=== PATIENT | female | born 1950 | race Caucasian/White ===

== ENCOUNTER → 2019-10-31 11:03 | Outpatient (CLI) | payer MEDICARE, BC, SELFPAY ==
--- NOTE | ~2019-10-31 | MR_ITS ---
EXAMINATION: MR lumbar spine wo con DATE: 10/31/2019 12:12 INDICATION: Right-sided low back pain. Sciatica. TECHNIQUE: Magnetic resonance imaging (MRI) of the lumbar spine was performed without intravenous con trast. Sequences included sagittal T2-weighted FSE, sagittal T2-weighted FS FSE, sagittal T1-weighted FSE, and axial T2-weighted FSE. COMPARISON: None FINDINGS: There is 9 degrees levocurvature of thoracolumbar spine. There is 3 mm retrolisthesis of L2 on L3 and L4 on L5. Vertebral body heights are normal. There is mildly decreased disc height from T1 2-L1 through L4-L5 and severely decreased disc height at L5-S1. The distal spinal cord signal intensi ty is normal. The conus medullaris is at L1. The following disc levels are specifically discussed: L1-L2: The disc is bulging. There is severe bilateral facet joint osteoarthritis. There is mild bilat eral neural foraminal stenosis. There is mild central canal stenosis. L2-L3: The disc is bulging. There is moderate bilateral facet joint osteoarthritis. There is mild keyla ateral neural foraminal stenosis. There is mild central canal stenosis. L3-L4: The disc is bulging. There is mild bilateral facet joint osteoarthritis. There is moderate keyla ateral neural foraminal stenosis. There is mild central canal stenosis. L4-L5: The disc is bulging with superimposed right central extrusion. There is severe bilateral facet joint osteoarthritis. There is moderate bilateral neural foraminal stenosis. There is mild central c anal stenosis. L5-S1: The disc is bulging and has an annular fissure. There is moderate bilateral facet joint osteoa rthritis. There is mild right and moderate left neural foraminal stenosis. There is mild central vj l stenosis. IMPRESSION: 1. Severe lumbar spondylosis. Reviewed, dictated and finalized at location A.
== END ==
PROVIDERS: PCP Internal Medicine; Visit Provider Internal Medicine
DX: M54.31 Sciatica, right side (principal); M47.896 Other spondylosis, lumbar region
CPT/HCPCS: 72148

== ENCOUNTER 2019-11-24 13:40 | Outpatient (CLI) | payer MEDICARE, BC, SELFPAY ==
--- NOTE | ~2019-11-24 | XR_ITS ---
EXAMINATION: XR chest 2V EXAM DATE: 11/24/2019 14:38 INDICATION: Preoperative. Hypertension. TECHNIQUE: Frontal and lateral projections of the chest obtained and reviewed. Comparison is made to prior examination from 10/15/2015. FINDINGS: The lungs are clear. There are no pleural effusions. The cardiomediastinal silhouette is within normal limits. There is no pneumothorax suspected. The bones and soft tissues are unremarkab le. IMPRESSION: No acute cardiopulmonary findings. Reviewed, dictated and finalized at location A.
[2019-11-24 14:32] LABS: Basophils Absolute Auto 0.1 K/mm3 (0.0-0.1); Basophils Percent Auto 0.8 % (0.2-1.2); Eosinophils Absolute Auto 0.3 K/mm3 (0-0.3); Eosinophils Percent Auto 4.1 % (0-4.4); Hematocrit 36.1 % (37.0-47.0); Hemoglobin 12.1 g/dL (12.0-15.0); Immature Granulocyte Absolute 0.02 K/mm3 (0.00-0.031); Immature Granulocyte Percent A 0.3 % (0-0.5); Lymphocytes Absolute Auto 2.44 K/mm3 (0.9-3.2); Lymphocytes Percent Auto 32.2 % (18.3-44.2); Mean Corpuscular HGB Conc 33.5 g/dl (32-36); Mean Corpuscular Volume 83.6 fl (80-100); Mean Platelet Volume 8.9 fl (7.4-10.4); Monocytes Absolute Auto 0.7 K/mm3 (0.1-0.6); Monocytes Percent Auto 8.7 % (2.6-8.5); Neutrophils Absolute Auto 4.1 K/mm3 (1.3-6.7); Neutrophils Percent Auto 53.9 % (45.5-73.1); Platelet Count Result 414 k/mm3 (150-375); Red Blood Count 4.32 M/mm3 (4.2-5.4); Red Cell Distribution Width 14.6 % (11.5-14.5); White Blood Count 7.6 K/mm3 (4.5-10.0)
--- NOTE | 2019-11-24 14:42 | ECG_ITS ---
Measurements Intervals [place] Rate: 69 P: 70 VT: 173 QRS: -3 QRSD: 101 T: 61 QT: 417 QTc: 447 Interpretive Statements SINUS RHYTHM POSSIBLE LEFT ATRIAL ENLARGEMENT CANNOT RULE OUT SEPTAL INFARCT, AGE INDETERMINATE ABNORMAL ECG Electronically Signed On 11-24-2019 14:58:50 CDT by Kishan Loo D.O.
[2019-11-24 14:43] LABS: INR 0.9; Prothrombin Time 12.1 Seconds (11.1-14.7)
[2019-11-24 14:45] LABS: Alanine Aminotransferase 19 U/L (4-35); Albumin Level 4.1 g/dL (3.5-5.1); Alkaline Phosphatase 66 U/L (38-126); Aspartate Amino Transferase 27 U/L (14-36); Bilirubin,Total 0.3 mg/dL (0.2-1.3); Blood Urea Nitrogen 17 mg/dL (7-17); Calcium 9.1 mg/dL (8.4-10.2); Carbon Dioxide 31 mmol/L (22-30); Chloride 96 mmol/L (98-107); Estimated Glomerular Filt Rate > 60; Glucose 171 mg/dL (65-105); Potassium 3.7 mmol/L (3.4-5.0); Sodium 131 mmol/L (137-145)
== END 2019-11-24 13:41 | disposition home or self-care (01) ==
DX: Z01.818 Encounter for other preprocedural examination (principal); I10 Essential (primary) hypertension; E11.9 Type 2 diabetes mellitus without complications; G62.9 Polyneuropathy, unspecified; R94.31 Abnormal electrocardiogram [ECG] [EKG]
CPT/HCPCS: 36415; 71046; 80053; 85025; 85610; 85730; 93005

== ENCOUNTER 2019-12-01 07:43 | Outpatient (CLI) | payer MEDICARE, BC, SELFPAY ==
--- NOTE | 2019-12-01 | ECHO_ITS ---
Patient Info Name: Valeria Murillo Age: 69 years : 1950 Gender: Female Ht: 66 in Wt: 240 lbs BSA: 2.30 m2 HR: 81 bpm BP: 155 / 79 mmHg Heart Rhythm: Sinus Rhythm Technical Quality: Fair Exam Date: 12/01/2019 8:16 AM Exam Location: [facility] Patient Status: Outpatient Admit Date: 12/01/2019 Staff Ordering Physician: MendozaTommie MD Photographic Reproduction Technician: Roberta Green RDCS Attending Provider: MendozaTommie MD Exam Type: CA echo doppler color flow Study Info Indications R94.31 - Abnormal electrocardiogram ECG EKG Complete two-dimensional, color flow and Doppler transthoracic echocardiogram is performed. Summary 1. Essentially unremarkable echocardiogram with normal cardiac contractility and no valvular disease. Left Ventricle Left ventricular chamber dimension is normal. Left ventricular systolic function is normal, estimated at 60-65%. Left ventricular septal wall motion is normal. The left ventricular diastolic function is normal. Right Ventricle Right ventricular chamber dimension is normal. Left Atria Left atrial chamber dimension is normal. Right Atria Right atrial chamber dimension is normal. Aortic Valve The aortic valve is normal. Pulmonic Valve The pulmonic valve is not well visualized. Mitral Valve The mitral valve has normal leaflets. Tricuspid Valve The tricuspid valve leaflets are normal. Pericardium/Pleural The pericardium appears normal. Aorta The aortic root size at the sinus of Valsalva is normal. Left Ventricular Outflow Tract Name Value Normal LVOT 2D LVOT Diameter 1.9 cm LVOT Doppler LVOT Peak Gradient 4 mmHg LVOT Mean Gradient 2 mmHg LVOT VTI 23 cm LVOT VTI/AV VTI Ratio 0.9 LVOT Stroke Volume 67 ml LVOT CO 4.9 l/min LVOT CI 2.1 l/min/m2 Pulmonic Valve Name Value Normal RVOT Doppler RVOT Peak Gradient 2 mmHg PV Doppler PV Peak Gradient 3 mmHg Mitral Valve Name Value Normal MV Doppler MV Decel Spencer 565 cm/s2 MV PHT 58 ms MV Area (PHT) 3.8 cm2 4.0-5.0 MV Diastolic Function MV E Peak Velocity 113 cm/s MV A Peak
== END 2019-12-01 07:44 | disposition home or self-care (01) ==
PROVIDERS: Visit Provider Internal Medicine
DX: R94.31 Abnormal electrocardiogram [ECG] [EKG] (principal)
CPT/HCPCS: 93306

== ENCOUNTER 2020-05-19 08:37 | Outpatient (CLI) | payer MEDICARE, BC, SELFPAY ==
--- NOTE | ~2020-05-19 | US_ITS ---
EXAMINATION: US arterial ankle brachial ind DATE: 05/19/2020 09:25 INDICATION: Peripheral vascular disease. Intermittent claudication. TECHNIQUE: Segmental pressures and plethysmographic and Doppler waveforms of the brachial and lower e xtremity arteries were obtained. COMPARISON: None. FINDINGS: Right and left brachial artery pressures of 163 mm Hg and 155 mm Hg, respectively, are concordant (no rmal difference <= 30 mmHg). The right ankle-brachial index (DAPHNE) is 1.13 (normal >= 0.9-1.0). The right great toe-brachial index (TBI) is 0.80 (normal >= 0.65). Arterial Doppler waveforms are biphasic with brisk systolic upstrokes at both the right posterior tibial and dorsalis pedis arteries. The left DAPHNE is 1.20. The left TBI is 0.92. Arterial Doppler waveforms are biphasic with brisk systol ic upstrokes at both the left posterior tibial and dorsalis pedis arteries. IMPRESSION: 1. No significant arterial occlusive disease with normal bilateral ABIs and TBIs. Reviewed, dictated and finalized at location B. IMPRESSION: 1. No significant arterial occlusive disease with normal bilateral ABIs and TBI s.
== END 2020-05-19 08:38 | disposition home or self-care (01) ==
PROVIDERS: Visit Provider Internal Medicine
DX: M79.604 Pain in right leg (principal); I73.9 Peripheral vascular disease, unspecified
CPT/HCPCS: 93922

== ENCOUNTER 2021-11-02 08:36 | Outpatient (CLI) | payer MEDICARE, SELFPAY ==
[2021-11-02 12:18] LABS: SARS-CoV-2 RNA PCR Negative (Negative)
== END 2021-11-02 08:37 | disposition home or self-care (01) ==
LOC: CHSLAB 08:38
PROVIDERS: PCP Internal Medicine; Visit Provider Internal Medicine
DX: Z20.822 Contact with and (suspected) exposure to COVID-19 (principal)
CPT/HCPCS: C9803; U0003; U0005

== ENCOUNTER 2023-05-08 12:54 | Outpatient (CLI) | payer MEDICARE, BC, SELFPAY ==
--- NOTE | ~2023-05-08 | MMUS_ITS ---
EXAMINATION: MM diagnostic tegan RT w radha, US breast RT limited HISTORY: Follow-up right breast asymmetry TECHNIQUE: Additional 3-D tomosynthesis images of the right breast were performed and synthetic 2-D i mages were generated. CAD analysis was submitted and interpreted. High resolution Limited right breas t ultrasound was performed. COMPARISON: 04/04/2023 BREAST PARENCHYMAL COMPOSITION: Breast composed of scattered areas of fibroglandular density FINDINGS: MAMMOGRAPHIC FINDINGS: The focal asymmetry medially in the right breast is less dense with spot compression views, most like ly superimposed fibroglandular content. ULTRASOUND: Limited right breast ultrasound: Normal heterogeneous echotexture without focal solid or cystic mass. IMPRESSION: 1. Right breast asymmetry is less dense with spot compression views. No sonographic correlate. 2. Recommend 6 month follow-up diagnostic right mammogram BI-RADS category 3, probably benign findings. Reviewed, dictated and finalized at location A. IMPRESSION: 1. Right breast asymmetry is less dense with spot compression views. No sonogra phic correlate. 2. Recommend 6 month follow-up diagnostic right mammogram BI-RADS category 3, probably benign findings.
== END 2023-05-08 12:55 | disposition home or self-care (01) ==
PROVIDERS: PCP Internal Medicine; Visit Provider Internal Medicine
DX: R92.8 Other abnormal and inconclusive findings on diagnostic imaging of breast (principal)
CPT/HCPCS: 76642; 77061; 77065; G0279

== ENCOUNTER 2023-08-02 12:53 | Emergency (ER) | payer MEDICARE, BC, SELFPAY ==
[2023-08-02 13:12] VITALS: BP 144/76; PULSE 90; RESP 16; TEMP 36.4; O2SAT 98
[2023-08-02 15:15] VITALS: BP 178/91; PULSE 110; RESP 18; O2SAT 98
[2023-08-02 16:45] VITALS: BP 154/94; PULSE 89; RESP 18; O2SAT 96
--- NOTE | 2023-08-02 17:04 | ED.EPISTAXIS ---
HPI - Epistaxis General Chief complaint: Epistaxis Stated complaint: Nosebleed Time Seen by Provider: 08/02/23 16:01 History of Present Illness HPI Narrative: Patient is a 73-year-old female who presents ER with epistaxis. Was itching her nose this morning when she developed bleeding. She has been trying the Holter in knows to stop the bleeding but has not worked. She is on no blood thinning medication. Has history of nosebleeds in the past. No sinus congestion or sore throat or cough. No fevers or chills or sweats. No additional concerns. Related Data Allergies Allergy/AdvReac Type Severity Reaction Status Date / Time ciprofloxacin Allergy Unknown NAUSEA Verified 08/02/23 12:54 Review of Systems Constitutional: Constitutional: Reports no additional constitutional complaints ENT: Reports epistaxis, Denies nasal congestion and Denies sore throat Cardiovascular: Cardiovascular: Reports no additional cardiovascular complaints PMFSH Past Medical History Medical History (Updated 08/02/23 @ 18:33 by Fernie Coronado MD) Diabetes Hypertension Family History Family History (Updated 02/18/16 @ 23:19 by DOCTOR UNKNOWN) Mother Hypertension Family history of Alzheimer's disease Father Cerebrovascular accident Family history of diabetes mellitus in first degree relative Family history of pancreatic cancer Social History Social History Smoking status: Former smoker Smoking end date: 07/23/94 Alcohol intake: current Exam Narrative: GENERAL: Well-appearing, well-nourished, and in no acute distress. HEAD: Normocephalic, atraumatic. ENT: Mucous membranes moist. Stigmata of bleeding nasal septum left side. NECK: Supple. CHEST: Clear to auscultation. No respiratory distress. HEART: Regular rate and rhythm. Normal peripheral pulses. SKIN: Warm, dry, petechial rash dorsum of the left hand. NEURO: Alert and oriented x3. PSYCH: Normal mood and affect. Course Course Emergency Course: Patient resting comfortably. Bleeding stopped on its own prior to my evaluation. Discussed using cautery and also discussed risk of failure that would then require anterior nasal packing. Patient declines and would like to do conservative treatments and try to follow-up with an ENT. She has been provided the nasal clamp that she used to stop the bleeding here. Discussed patient is high risk for rebleeding discussed ways to prevent bleeding. Patient will discontinue her CPAP short term. She will not stick anything in her nose. We discussed use of Afrin and [place] nasal spray. Patient notes rash before discharge that is petechial in nature. Lab work normal. Discharge. Vital Signs Vital signs: Vital Signs Temperature 97.6 F 08/02/23 13:12 Pulse Rate 90 08/02/23 13:12 Respiratory Rate 16 08/02/23 13:12 Blood Pressure 144/76 H 08/02/23 13:12 Pulse Oximetry 98 08/02/23 13:12 Oxygen Delivery Room Air 08/02/23 13:12 Temperature 98.3 F 08/02/23 17:51 Pulse Rate 88 08/02/23 17:51 Respiratory Rate 20 08/02/23 17:51 Blood Pressure 159/94 H 08/02/23 17:51 Pulse Oximetry 98 08/02/23 17:51 Oxygen Delivery Room Air 08/02/23 13:12 MDM - Epistaxis Lab Data 08/02/23 17:44 08/02/23 17:44 Labs: Lab Results 08/02/23 Range/Units 17:44 WBC 10.0 (4.5-10.0) K/mm3 RBC 4.15 L (4.2-5.4) M/mm3 Hgb 11.9 L (12.0-15.0) g/dL Hct 36.5 L (37.0-47.0) % MCV 88.0 (80-100) fl MCH 28.7 (26-34) pg MCHC 32.6 (32-36) g/dl RDW 14.7 H (11.5-14.5) % Plt Count 390 H (150-375) k/mm3 MPV 9.3 (7.4-10.4) fl Immature Gran % (Auto) 0.2 (0-0.5) % Neut % (Auto) 52.5 (45.5-73.1) % Lymph % (Auto) 36.7 (18.3-44.2) % [place] % (Auto) 6.6 (2.6-8.5) % Eos % (Auto) 3.1 (0-4.4) % Baso % (Auto) 0.9 (0.2-1.2) % Lymph # (Auto) 3.66 H (0.9-3.2) K/mm3 [place] # (Auto) 0.7 H (0.1-0.6) K/mm3 Eos # (Auto) 0.3 (0-0.3) K/mm
[2023-08-02 17:51] VITALS: BP 159/94; PULSE 88; RESP 20; TEMP 36.8; O2SAT 98
[2023-08-02 17:53] LABS: Basophils Absolute Auto 0.1 K/mm3 (0.0-0.1); Basophils Percent Auto 0.9 % (0.2-1.2); Eosinophils Absolute Auto 0.3 K/mm3 (0-0.3); Eosinophils Percent Auto 3.1 % (0-4.4); Hematocrit 36.5 % (37.0-47.0); Hemoglobin 11.9 g/dL (12.0-15.0); Immature Granulocyte Absolute 0.02 K/mm3 (0.00-0.031); Immature Granulocyte Percent A 0.2 % (0-0.5); Lymphocytes Absolute Auto 3.66 K/mm3 (0.9-3.2); Lymphocytes Percent Auto 36.7 % (18.3-44.2); Mean Corpuscular HGB Conc 32.6 g/dl (32-36); Mean Corpuscular Hemoglobin 28.7 pg (26-34); Mean Platelet Volume 9.3 fl (7.4-10.4); Monocytes Absolute Auto 0.7 K/mm3 (0.1-0.6); Monocytes Percent Auto 6.6 % (2.6-8.5); Neutrophils Absolute Auto 5.2 K/mm3 (1.3-6.7); Neutrophils Percent Auto 52.5 % (45.5-73.1); Platelet Count Result 390 k/mm3 (150-375); Red Blood Count 4.15 M/mm3 (4.2-5.4); Red Cell Distribution Width 14.7 % (11.5-14.5)
--- NOTE | 2023-08-02 17:54 | PC.NURSE ---
[id number]- RN arrived to pt room to discharge pt. Pt anxious crying states she has blood coming up in my hand & wrist points to left hand & wrist. RN noted red petechial rash on left hand & left wrist. Pt denies any ain or itching associated with rash Dr. Coronado notified.
[2023-08-02 18:05] LABS: Alanine Aminotransferase 18 U/L (6-35); Albumin Level 4.2 g/dL (3.5-5.1); Alkaline Phosphatase 65 U/L (38-126); Anion Gap 9 mmol/L (8-16); Aspartate Amino Transferase 32 U/L (14-36); Bilirubin,Total 0.5 mg/dL (0.2-1.3); Blood Urea Nitrogen 19 mg/dL (7-17); Calcium 9.2 mg/dL (8.4-10.2); Carbon Dioxide 27 mmol/L (22-30); Chloride 99 mmol/L (98-107); Estimated CRCL calculation 83 ml/min; Estimated Glomerular Filt Rate > 60; Glucose 100 mg/dL (65-110); Potassium 4.1 mmol/L (3.4-5.0); Sodium 135 mmol/L (137-145)
[2023-08-02 18:08] LABS: INR 0.9; Prothrombin Time 12.9 Seconds (11.1-14.7)
[2023-08-02 18:09] LABS: Partial Thromboplastin Time 27.3 SECONDS (22.3-36.8)
--- NOTE | 2023-08-02 19:01 | PC.NURSE ---
No change in rash at this time
== END 2023-08-02 19:02 | disposition home or self-care (01) ==
PROVIDERS: Emergency Provider Emergency Medicine; PCP Internal Medicine
DX: R04.0 Epistaxis (principal); E11.9 Type 2 diabetes mellitus without complications; I10 Essential (primary) hypertension; Z87.891 Personal history of nicotine dependence
CPT/HCPCS: 36415; 80053; 85025; 85610; 85730; 99283

== ENCOUNTER 2023-11-08 10:14 | Outpatient (CLI) | payer MEDICARE, BC, SELFPAY ==
--- NOTE | ~2023-11-08 | MM_ITS ---
EXAMINATION: MM diagnostic tegan RT w radha HISTORY: Follow-up right breast asymmetry TECHNIQUE: Additional 3-D tomosynthesis images of the right breast were performed and synthetic 2-D i mages were generated. CAD analysis was submitted and interpreted. COMPARISON: Comparison to multiple prior studies sequentially, with oldest reviewed study dated 10/2018. BREAST PARENCHYMAL COMPOSITION: Not dense: There are scattered areas of fibroglandular density. FINDINGS: The right breast is stable. No new masses, calcifications or architectural distortion in th e right breast to suggest malignancy. IMPRESSION: 1. No evidence for malignancy in the right breast. 2. Routine yearly screening mammogram and regular clinical breast examination are recommended. BI-RADS Category 1: Negative Reviewed, dictated and finalized at location B. IMPRESSION: 1. No evidence for malignancy in the right breast. 2. Routine yearly screening mammogram and regular clinical breast examination a re recommended. BI-RADS Category 1: Negative
== END 2023-11-08 10:15 | disposition home or self-care (01) ==
PROVIDERS: PCP Internal Medicine
DX: N63.10 Unspecified lump in the right breast, unspecified quadrant (principal); R92.8 Other abnormal and inconclusive findings on diagnostic imaging of breast
CPT/HCPCS: 77061; 77065; G0279

== ENCOUNTER 2024-02-05 13:06 | Outpatient (CLI) | payer MEDICARE, BC, SELFPAY ==
--- NOTE | ~2024-02-05 | XR_ITS ---
XR hip BI wo pelvis Ordering provider: Tommie Donaldson, History: . BILATERAL HIP PAIN, LEFT HIP LATERAL PAIN, NO INJURY . Comparison: None. FINDINGS: BONES: No acute fracture or dislocation. HIP JOINT SPACES: Mild to moderate bilateral hip osteoarthritic changes. SACROILIAC JOINT SPACES/LUMBAR SPINE: The sacroiliac joint spaces are normal. Mild degenerative martell es of the visualized lower lumbar spine. PUBIC SYMPHYSIS: Normal. SOFT TISSUES: Normal. IMPRESSION: No acute osseous abnormality of the bilateral hips and pelvis. Reviewed, dictated and finalized at location A.
== END 2024-02-05 13:07 | disposition home or self-care (01) ==
PROVIDERS: PCP Internal Medicine; Visit Provider Internal Medicine
DX: M25.551 Pain in right hip (principal); M25.552 Pain in left hip
CPT/HCPCS: 73521

== ENCOUNTER 2024-06-10 12:13 | Outpatient (CLI) | payer MEDICARE, BC, SELFPAY ==
--- NOTE | ~2024-06-10 | XR_ITS ---
Clinical Indication: Cough PA and lateral views of the chest: Comparison: 11/24/2019 Findings: The lungs are clear, without evidence of focal consolidation or pleural effusion. Cardiome diastinal silhouette is within normal limits. Bones and soft tissues are unremarkable. Impression: Normal chest. Reviewed, dictated and finalized at [facility]. SCHOOL MUSIC DIRECTOR Impression: Normal chest.
== END 2024-06-10 12:14 | disposition home or self-care (01) ==
LOC: GOSHIMG 12:16
PROVIDERS: PCP Internal Medicine; Visit Provider Internal Medicine
DX: R05.9 Cough, unspecified (principal); Z87.891 Personal history of nicotine dependence
CPT/HCPCS: 71046

== ENCOUNTER 2024-11-20 09:57 | Outpatient (CLI) | payer MEDICARE, BC, SELFPAY ==
--- NOTE | ~2024-11-20 | MM_ITS ---
EXAMINATION: MM screening tegan BI w radha HISTORY: Screening TECHNIQUE: Craniocaudal and mediolateral oblique 3-D tomosynthesis images were obtained and synthetic 2-D images were generated. CAD analysis was submitted and interpreted. COMPARISON: Comparison to multiple prior studies sequentially, with oldest reviewed study dated 01/2020. BREAST PARENCHYMAL COMPOSITION: Not dense: There are scattered areas of fibroglandular density. FINDINGS: There is no evidence of suspicious mass, calcification, or architectural distortion to sugg est malignancy in either breast. There has been no suspicious interval change. IMPRESSION: 1. No mammographic evidence of malignancy. 2. Recommend routine screening mammography in one year. BI-RADS Category 1: Negative Reviewed, dictated and finalized at location A.
--- OUTSIDE RECORDS SUMMARY | 2024-11-20 10:43 | XMS_ITS | Data Portability ---
Author Organization [facility] [address] [place] [place] [address] Care Team Providers Care Asset Management Analyst Name Role Phone LIAT DONALDSON Primary Care Provider SULEMA [facility] Oil Heater Installer ZACHAYR TRIPLETT Chief Ultrasound Technologist BEVERLEY RAMIREZ Neurologist LINA MÉNDEZ Jboss Architect Assessment Encounter Date Assessment Date Assessment LastModified by Organization Details LastModified Time 01/31/2024 01/31/2024 agree with use of diabetic shoes. Chronic medical problems have been discussed most recent blood work has been reviewed management of problems and assessment and plan have been discussed follow up with me in 3-4 months [email or web address] Not available 02/23/2024 23:55:03 02/07/2024 02/07/2024 she will keep her regular follow-up right now things not have bad and she is seeing Rheumatology in the next week [email or web address] Not available 02/23/2024 11:10:56 06/05/2024 06/05/2024 healthy lifestyle care instructions diastolic of 82 she does hurt today I do not think we need to do anything but further watch that. Other medicines we will continue follow up 4 months [email or web address] Not available 07/17/2024 22:37:28 06/16/2024 06/16/2024 screenings and work sheet checklist discussed all questions were answered. Screenings and immunizations ordered where patient agreeable and appropriate. We will see me at her regularly scheduled appointment [email or web address] Not available 06/19/2024 15:12:44 10/02/2024 10/02/2024 continue current therapy blood work has been ordered healthy lifestyle care instructions follow up in 3-4 months [email or web address] Not available 10/04/2024 22:10:23 Plan of Treatment Reminders Order Date Submit Date Provider Last Modified By Organization Details Last Modified Time Details Appointments ANY 15 2024 11:00A M Liat Donaldson MD Not available Not available Not available Lab CMP, serum or plasma 2024 025 [facility], [address], [address], [place], [address], 10/04/2024 13:23:28 CBC w/ auto diff 2024 025 [facility], [address] Ang[address], [address], [place], [address], 10/08/2024 14:10:03 lipid panel, serum 2024 025 [facility], [address] Ang[address], [address], [place], [address], 10/08/2024 14:10:03 TSH + free T4, serum 2024 025 [facility], [address] Angeli Amin, [address], [place], [address], 10/08/2024 14:10:03 T3, free, serum or plasma 2024 025 [facility], [address], [address], [place], [address], 10/08/2024 14:10:03 HbA1c (hemog lobin A1c), blood 2024 025 [facility], [address] Ang[address], [address], [place], [address], 10/08/2024 14:10:03 HbA1c (hemog lobin A1c), blood 2023 024 In-Office Order, Internal Use Only DO Not Attach Compendium DO Not Attach Compendium, Do Not Delete/merge, [id number] 01/31/2024 14:57:13 Referral None record ed. Procedures None record ed. Surgeries None record ed. Imaging bone densit y 2023 024 [facility], [facility] [place]Note 2], [address], [address], 11/20/2024 04:22:46 Medication Orders Ozempi c 0.25 mg or 0.5 mg (2 mg/3 mL) subcut aneous pen inject or 2024 025 [facility], [facility], [place], [address], 10/28/2024 17:46:46 Patient TargetsNo targets recorded. Patient Instructions Encounter Date Encounter Id Patient Instructions Last Modified By Organization Details Last Modified Time 06/05/2024 [id number] A healthy lifestyle: care instructions [email or web address] Not available 07/17/2024 22:37:53 06/16/2024 [id number] preventing falls : care instructions [email or web address] Not available 06/16/2024 14:15:22 [facility] Preventive Checklist [email or web address] Not available 06/16/2024 14:15:22 10/02/2024 [id number] A healthy lifestyle: care instructions Not available 10/02/2024 13:27:16 Reason for Referral None Reported. Results Created Date Observation Date Name Description Value Unit Range Abnormal Flag Note LastModifiedBy Organization Detail LastModifiedTime 01/31/2001/31/2024 HbA1c (hemo globi n A1c), blood HbA1c 4.9 Not Available In-Office Order Internal Use Only DO Not Attach Compendium DO Not Attach Compendium, Do Not Delete/merge, [id number] 01/31/2024 14:09:58 06/30/20 24 06/30/2024 Hemog lobin A1c/H emogl obin. total in Blood hemoglobin A1C, POC 4.9 % low: 4%high : 5.6% Hemog lobin A1C, POC 4.9 4.0 - 5.6 % Not Available Not Available 10/02/2024 03:23:02 06/30/20 24 06/30/2024 Hemog lobin A1c/H emogl obin. total in Blood interpretati on and review of laboratory results Normal Not Available Not Available 09/20 03:23:02 10/14/19 25 10/13/2024 Hemog lobin A1c/H emogl obin. total in Blood hemoglobin A1C, POC 5.1 % low: 4%high : 5.6% Hemog lobin A1C, POC 5.1 4.0 - 5.6 % Not Available Not Available 10/21/2024 10:06:36 10/14/19 25 10/13/2024 Hemog lobin A1c/H emogl obin. total in Blood interpretati on and review of laboratory results Normal Not Available Not Available 07/2024 10:06:36 02/05/20 24 02/05/2024 XR, hip, bilat eral No observ ation record ed. [address] [address], [place], [address], 02/08/2024 15:42:14 02/05/20 24 02/05/2024 XR, hip, bilat eral No observ ation record ed. [address], [place], [address], 02/08/2024 15:42:15 06/10/20 24 06/10/2024 XR, chest , 2 view No observ ation record ed. [address], [place], [address], 06/25/2024 11:04:15 06/10/20 24 06/10/2024 XR, chest , 2 view No observ ation record ed. [facility] [address] [place] [address] [address], [place], [address], 06/16/2024 12:31:33 Result Notes None recorded. Problems Name Problem SNOMED Code Status Onset Date Resolution Date Notes Provider Name and Address Organization Details Recorded Time Type 2 diabetes mellitus 62053532 Active 2023 [facility] [place], [place] - [facility] 4 13:41:38 Obstructive sleep apnea syndrome 02837720 Active 2023 Mike Cail [place], [place] [facility] 4 13:41:56 Dyslipidemia 065172321 Active 2023 Mike Cal[place] [facility] 13:44:31 Obesity 167676463 Active 2023 Mike Cal[place] [facility] 13:45:12 Hypertensive disorder 71302087 Active 2023 [place] [facility] 13:45:20 Ankylosing spondylitis 5087258 Active 2023 [place] [facility] 13:45:29 Hyponatremia 17743276 Active 2023 [place] [facility] 13:45:36 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 Procedures Surgical History Date Name Laterality Status Provider Name and Address Organization Details Recorded Time Back Surgery completed [facility] THOMAS 10/03/2023 12:32:21 preparation of bowel for procedure completed [facility] 10/03/2023 12:34:32 Tonsillectomy completed [facility] 10/03/2023 12:34:42 Total hysterectomy completed [facility] 10/03/2023 12:34:52 thumb surgery completed Mike Cali MA [facility] 10/03/2023 13:46:34 Imaging Results Imaging Date Name Status [facility] Details LastModified Time 02/05/2024 XR, hip, bilateral completed [facility] [address], [place], [address], 02/08/2024 15:42:14 02/05/2024 XR, hip, bilateral completed [facility] [address], [place], [address], 02/08/2024 15:42:15 06/10/2024 XR[facility], [facility] [address] [facility], [place], [address], 06/25/2024 11:04:15 06/10/2024 XR, chest, 2 [facility] [address] [facility] [place]Note 2] [address], [place], [address], 06/16/2024 12:31:33 Procedure Notes None recorded. Medical Equipment None Reported. Allergies Allergen ID Allergen Name Allergen Category Reaction Reaction Severity Criticality Documentation Date Start Date Code Code System Note Provider Name and Address Organization Details Recorded Time 807136 Cipro medicatio n nausea moderate Not available 10/03/202361162 3 [facility] [place] - [facility] 12:26:20 677888 cefdinir medicatio n Not available Not available Not available 10/02/20242007 32867 RxNorm unrec ogniz ed react ion (text : Unkno wn, code: [id number]) (from [facility]) [place] [facility] 12:08:50 617275 ciproflox acin medicatio n nausea Not available [facility] 10/02/20242012 2551 RxNorm [facility] [place] [facility] 5 12:08:53 Medications Name Sig Start Date Stop Date Status Note LastModified by Organization Details LastModified Time celecoxib 200 mg capsule TAKE 1 CAPSULE TWICE DAILY active Not Available Not Available No t Available azithromyci n 250 mg tablet TAKE 2 TABLETS (500 MG) BY ORAL ROUTE ONCE DAILY FOR 1 DAY THEN 1 TABLET (250 MG) BY ORAL ROUTE ONCE DAILY FOR 4 DAYS 06/05 completed Not Available Not Available Not Available sulfasalazi ne 500 mg tablet,berenice yed release active Not Available Not Available Not Available metformin 850 mg tablet TAKE 1 TABLET TWICE DAILY WITH MEALS DIRECTED active Not Available Not Available No t Available tramadol 50 mg tablet TAKE 1 TO 2 TABLETS 3 TIMES A DAY WITH OVER-THE- COUNTER TYLENOL FOR PAIN CONTROL (VARY TRAMADOL DOSE BASED ON SEVERITY OF PAIN) active Not Available Not Available No t Available Humalog U-100 Insulin 100 unit/mL subcutaneou s solution USE VIA INSULIN PUMP UP TO 70 UNITS DAILY active Not Available Not Available No t Available Synthroid 25 mcg tablet TAKE 1 TABLET DAILY active Not Available Not Available No t Available gabapentin 300 mg capsule TAKE 1 CAPSULE EVERY MORNING, 1 CAPSULE WITH LUNCH AND 2 CAPSULES NIGHTLY active Not Available Not Available No t Available mupirocin 2 % topical ointment active Not Available Not Available Not Available Novolog U-100 Insulin aspart 100 unit/mL subcutaneou s solution active Not Available Not Available N ot Available losartan 50 mg-hydrochl orothiazide 12.5 mg tablet TAKE 1 TABLET DAILY active Not Available Not Available No t Available doxycycline hyclate 100 mg tablet Take 1 tablet twice a day by oral route for 7 days. 06/05 completed Not Available Not Available Not Available ciclopirox 0.77 % topical cream APPLY TOPICALLY TO AFFECTED AREA OF FOOT TWICE DAILY active Not Available Not Available No t Available rosuvastati n 10 mg tablet TAKE 1 TABLET DAILY active Not Available Not Available No t Available duloxetine 60 mg capsule,del ayed release TAKE 1 CAPSULE DAILY active Not Available Not Available No t Available solifenacin 5 mg tablet TAKE 1 TABLET DAILY active Not Available Not Available No t Available Wegovy 0.25 mg/0.5 mL subcutaneou s pen injector Inject 0.25 mg every week by subcutane ous route. 10/02 completed Not Available Not Available Not Available Omnipod 5 G6 Pods (Gen 5) subcutaneou s cartridge 06/16 completed Not Available Not Available Not Available Ozempic 0.25 mg or 0.5 mg (2 mg/3 mL) subcutaneou s pen injector INJECT 0.25MG SUBCUTANE OUSLY WEEKLY FOR 4WEEKS, THEN GO TO 0.5MG WEEKLY active Not Available Not Available No t Available Omnipod 5 G6-G7 Pods (Gen 5) subcutaneou s cartridge CHANGE POD EVERY 3 DAYS active Not Available Not Available No t Available Vitals Date Recorded Body height Heart rate Oxygen saturation Oxygen saturation in Arterial blood by Pulse oximetry Body mass index (BMI) Body weight Systolic blood pressure Diastolic blood pressure Provider Name and Address Organization Details Last Updated DateTime 4 165.1 cm 94 /min 96 % 96 % 35.6 kg/m2 52315.2 g 130 mm[Hg] 70 mm[Hg] Deedee Boss MA [facility] 4 14:18:49 Date Recorded Body height Body mass index (BMI) Body weight Heart rate Oxygen saturation Oxygen saturation in Arterial blood by Pulse oximetry Systolic blood pressure Diastolic blood pressure Provider Name and Address Organization Details Last Updated DateTime 4 165.1 cm 36.3 kg/m2 98255.5 7 g 82 /min 97 % 97 % 140 mm[Hg] 66 mm[Hg] Holly Sanders MA [facility] 4 16:35:35 Date Recorded Body height Body mass index (BMI) Body weight Heart rate Oxygen saturation Oxygen saturation in Arterial blood by Pulse oximetry Systolic blood pressure Diastolic blood pressure Provider Name and Address Organization Details Last Updated DateTime 4 165.1 cm 34.1 kg/m2 61989.4 4 g 72 /min 98 % 98 % 132 mm[Hg] 82 mm[Hg] Stephanie Vergara MA [facility] 4 14:24:08 Date Recorded Body height Body mass index (BMI) Body weight Heart rate Oxygen saturation Oxygen saturation in Arterial blood by Pulse oximetry Systolic blood pressure Diastolic blood pressure Provider Name and Address Organization Details Last Updated DateTime 4 165.1 cm 34.2 kg/m2 94485.2 3 g 98 /min 97 % 97 % 116 mm[Hg] 60 mm[Hg] Nely Rubio MA [facility] 4 11:58:12 Date Recorded Pain severity - 0-10 verbal numeric rating [Score] - Reported Provider Name and Address Organization Details Last Updated DateTime 06/16/2024 2 Izzy Boswell [facility] 06/16/2024 12:02:50 Date Recorded Body height Body mass index (BMI) Body weight Heart rate Oxygen saturation Oxygen saturation in Arterial blood by Pulse oximetry Systolic blood pressure Diastolic blood pressure Provider Name and Address Organization Details Last Updated DateTime 165.1 cm 33.3 kg/m2 77637.4 7 g 82 /min 96 % 96 % 110 mm[Hg] 64 mm[Hg] Nely RubioHOME [facility] 12:08:33 Social History Question Answer Notes LastModified by Organizat ion Details LastModified Time Tobacco Smoking Status Former Smoker quit around 1994 Izzy Andreia wheat, [facility] 06/16/2024 12:05:48 Do You Have An Advance Directive? Yes Information not available 10/03/2023 What Is Your Level Of Alcohol Consumption? None Information not available 06/16/2024 Are You Blind Or Do You Have Difficulty Seeing? No Information not available 06/16/2024 What Is Your Level Of Caffeine Consumption? Heavy Coffee Information not available 10/03/2023 In The 14 Days Before Symptom Onset, Have You Had Close Contact With A Laboratory-confi rmed COVID-19 While That Case Was Ill? No Information not available 10/02/2024 In The 14 Days Before Symptom Onset, Have You Had Close Contact With A Person Who Is Under Investigation For COVID-19 While That Person Was Ill? No Information not available 10/02/2024 Have You Been To An Area Known To Be High Risk For COVID-19? No Information not available 10/02/2024 Are You Currently Employed? No Information not available 10/03/2023 Are You Deaf Or Do You Have Serious Difficulty Hearing? Yes Has Hearing Aids Information not available 06/16/2024 What Type Of Diet Are You Following? REGULAR Information not available 10/03/2023 Are There Any Guns Present In Your Home? Yes Information not available 06/16/2024 In The Past 7 Days, How Many Days Did You Exercise? 0 Information not available 06/16/2024 In The Past 7 Days, How Much Pain Have You [place]? Some Information not available 06/16/2024 In General, Would You Say You Health Is: Fair Information not available 06/16/2024 How Would You Describe The Condition Of Your Mouth And Teeth- Including False Teeth Or Dentures? Fair Information not available 06/16/2024 Each Night, How Many Hours Of Sleep Do You Get? 7 Information not available 06/16/2024 Has Anyone Ever Told You That You Snore? No CPAP Information not available 06/16/2024 In The Past 7 Days, How Often Have You [place] Sleepy In The Daytime? Always Naps Daily Due To Fatigue Information not available 06/16/2024 # Alcohol Drinks Per Week 0 Information not available 06/16/2024 What Was The Date Of Your Most Recent Tobacco Screening? 10/02/2024 Information not available 10/02/2024 What Is Your Current Pack Years? 20-29packy ears Information not available 10/03/2023 What Is Your Relationship Status? Information not available 10/03/2023 Do You Use Your Seat Belt Or Car Seat Routinely? Yes Information not available 10/03/2023 Do You Have Smoke And Carbon Monoxide Detectors In Your Home? Yes Smoke Detectors Information not available 10/03/2023 Do You Feel Stressed (tense, Restless, Nervous, Or Anxious, Or Unable To Sleep At Night)? [id number] Information not available 06/16/2024 Do You Use Any Illicit Or Recreational Drugs? Yes CBD Occasionally Information not available 06/16/2024 Do You Use Sunscreen Routinely? Yes Information not available 10/03/2023 Has Tobacco Cessation Counseling Been Provided? No Information not available 06/16/2024 On What Date Was Tobacco Cessation Counseling Provided? 10/02/2024 Information not available 10/02/2024 How Many Years Have You Smoked Tobacco? 20 Information not available 10/03/2023 Do You Or Have You Ever Used Any Other Forms Of Tobacco Or Nicotine? No Information not available 10/03/2023 Sex: Unknown Functional Status Question Answer Note LastModified by Organization D etails LastModified Time Are you able to care for yourself? Yes Information n ot available 06/16/2024 What is your exercise level? None Information not available 06/16/2024 Mental Status None recorded. Family History Relationship Description Onset Age of this Age Resolved Age Notes LastModified by Organization Details LastModified Time Father Heart disease 72 [email or web address] Not available 09/20 12:28:28 Father Malignant tumor of pancreas 72 [email or web address] Not available 09/20 12:28:22 Father Cerebrovascu lar accident 72 [email or web address] Not available 0 10/03/2023 12:28:38 Father Harmful pattern of use of alcohol 72 [email or web address] Not available 09/20 12:28:45 Mother Alzheimer's disease 93 [email or web address] Not available 09/20 12:29:19 Mother Hypertensive disorder 93 [email or web address] Not available 09/20 12:29:30 Mother Hypercholest erolemia 93 [email or web address] Not available 09/20 12:29:46 Medical History Condition Response Coronary Artery Disease N Other Y Atrial Fibrillation N High Blood Pressure Y Kidney or Bladder Problems N Thyroid Problems N GI Problems N Depression Y COPD N Blood Clots N Have you had a mammogram in the last yea r? Y Skin Problems N Anemia N Heart Attack ([place]) N Anxiety Disorder N Diabetes Y Muscle, Joint, or Bone Problems Y Seizures/Epilepsy N Have you had a colonoscopy in the last 1 0 years? Y Acid Reflux (GERD) N Cancer N Stroke N Asthma N Allergies N Have you had a PSA blood test in the las t year? N High Cholesterol Y Hepatitis N Liver Disease N Headaches N Heart Failure N Osteoporosis N Gynecological History Statement/Question Response If Post Menopausal, Age at Menopause 50 Obstetrics History GPAL:G 0 P 0 0 0 0 Immunizations Vaccine Type Date Status Note Provider Nam e and Address Organization Details Recorded Time Influenza, high-dose, quadrivalent, PF 3 completed Iz[place], [place] [facility] 06/13/2024 10:40:13 Influenza, high-dose, quadrivalent, PF 2 completed Izzy wheat [place] [facility] 06/13/2024 10:40:13 Influenza, high-dose, quadrivalent, PF 1 completed [place] [facility] 06/13/2024 10:40:13 Influenza, high-dose, quadrivalent, PF 9 completed [place] [facility] 06/13/2024 10:40:13 Influenza, adjuvanted, quadrivalent, PF 0 completed [place] [facility] 06/13/2024 10:40:13 COVID-19, mRNA, LNP-S, PF, 100 mcg/0.5mL dose or 50 mcg/0.25mL dose 1 completed [place] [facility] 06/13/2024 10:40:13 COVID-19, mRNA, LNP-S, PF, 100 mcg/0.5mL dose or 50 mcg/0.25mL dose 2 completed [place] [facility] 06/13/2024 10:40:13 COVID-19, mRNA, LNP-S, PF, 100 mcg/0.5mL dose or 50 mcg/0.25mL dose 1 completed [place] [facility] 06/13/2024 10:40:13 COVID-19, mRNA, LNP-S, PF, 100 mcg/0.5mL dose or 50 mcg/0.25mL dose 1 completed [place] [facility] 06/13/2024 10:40:13 COVID-19, mRNA, LNP-S, bivalent, PF, 50 mcg/0.5 mL or 25mcg/0.25 mL dose 3 completed [place] [facility] 06/13/2024 10:40:13 COVID-19, mRNA, LNP-S, bivalent, PF, 50 mcg/0.5 mL or 25mcg/0.25 mL dose 2 completed [place] [facility] 06/13/2024 10:40:13 RSV, bivalent, protein subunit RSVpreF, diluent reconstituted, 0.5 mL, PF 3 completed [place] [facility] 06/13/2024 10:40:13 COVID-19, mRNA, LNP-S, PF, pamela-sucrose, 30 mcg/0.3 mL 3 completed [place] [facility] 06/13/2024 10:40:13 pneumococcal polysaccharide PPV23 5 completed [place] [facility] 06/13/2024 10:40:13 influenza, unspecified formulation 4 completed [place] [facility] 06/13/2024 10:40:13 Pneumococcal conjugate PCV 13 5 completed [place] [facility] 06/13/2024 10:40:13 zoster live 4 completed [place] [facility] 06/13/2024 10:40:13 Influenza, high-dose, trivalent, PF 8 completed [place] [facility] 06/13/2024 10:40:13 Influenza, high-dose, trivalent, PF 9 completed [place] [facility] 06/13/2024 10:40:13 Influenza, high-dose, trivalent, PF 7 completed [place] [facility] 06/13/2024 10:40:13 Influenza, high-dose, trivalent, PF 8 completed [place] [facility] 06/13/2024 10:40:13 Influenza, high-dose, trivalent, PF 6 completed [place] [facility] 06/13/2024 10:40:13 Influenza, high-dose, trivalent, PF 5 completed [place] [facility] 06/13/2024 10:40:13 Influenza, split virus, trivalent, preservative 2 completed [place] [facility] 06/13/2024 10:40:13 influenza nasal, unspecified formulation 4 completed [place] 06/16/2024 12:04:41 COVID-19, mRNA, LNP-S, PF, pamela-sucrose, 30 mcg/0.3 mL 4 completed Nely Rubio MA [place], [place] - [facility] 10/02/2024 09:15:54 Past Encounters Encounter ID Performer Location Encounter Start Date Encounter Closed Date Diagnosis/Indication Diagnosis SNOMED-CT Code Diagnosis ICD10 Code Diagnosis Note [id number] Liat Donaldson MD [facility] [address] [place] [address] 10/03/2023 12:10:28 10/03/2023 12:57:56 Pain of right shoulder joint 6700670623 6909240 M25.511 Type 2 lindsay betes mellitus 03803425 E11.41 Obstructiv e sleep apnea syndrome 01992493 G47.33 Diabetic p eripheral neuropathy 014518348 E11.40 Obesity 346684004 E66.9 Essential hypertension 14417271 I10 Ankylosing spondylitis 1309899 M45.9 Hyponatremia 10828618 E8 7.1 Right foot drop 67990494 01 38851 M21.951 [id number] Liat Donaldson MD [facility] [place] [address] [place] [address] 01/31/2024 13:46:42 01/31/2024 15:28:24 Type 2 diabetes mellitus 81191657 E11.41 Hypertensive disorder 38 498728 I10 Neuropathy due to diabetes mellitus 809773994 E11.40 Dyslipidemia 105666564 E 78.5 Ankylosing spondylitis 3017441 M45.9 [id number] Liat Donaldson MD [facility] [place] [address] [place] [address] 02/07/2024 16:04:44 02/07/2024 17:09:30 Pain of left hip joint 3369393824 18802 M25.813 [id number] Liat Donaldson MD [facility] [place] [address] [place] [address] 06/05/2024 14:07:32 06/05/2024 15:09:43 Obesity 275042291 E66.9 Hypertensive disorder 38 663528 I10 Dyslipidemia 386677694 E 78.5 Neuropathy due to diabetes mellitus 067056746 E11.40 Type 2 lindsay betes mellitus 24666171 E11.41 [id number] Liat Donaldson MD [facility] [place] [address] [place] [address] 06/16/2024 11:45:19 06/16/2024 13:31:23 Adult health examination 369643043 Z00.00 Health Risk Assessment collected and reviewed [address] Z78.0 [id number] Liat Donaldson MD [facility] [place] [address] [place] [address] 10/02/2024 11:46:33 10/02/2024 13:18:07 Body mass index 30+ - obesity 099880065 Z68.33 Obesity 935917674 E66.9 Hypertensive disorder 38 955150 I10 Type 2 lindsay betes mellitus 84087647 E11.41 Hyponatremia 65685591 E8 7.1 Ankylosing spondylitis 3342090 M45.9 Neuropathy due to diabetes mellitus 126922874 E11.40 Dyslipidemia 457930134 E 78.5 Obstructiv e sleep apnea syndrome 67989782 G47.33 Health Concerns Section Related Observation LastModified by Organization Detai ls LastModified Time None Recorded Concern Status LastModified by Organization Details LastModified Time None Recorded Advance Directives Directive Y: Payers Encounter Date Sequence Insurance Name Policy Number Policy Panda Covered Member ID Panda Member ID Guarantor Name 01/31/2024 2 [place] 106 Sebastian Murillo [id number] Valeria Murillo 01/31/2024 1 [place] Valeria Erica Murillo [id number] Valeria Murillo 02/07/2024 2 [place] 106 Sebastian Murillo [id number] Valeria Murillo 02/07/2024 1 [place] Valeria Erica Murillo [id number] Valeria Murillo 06/05/2024 2 [place] 106 Sebastian Murillo [id number] Valeria Murillo 06/05/2024 1 [place] Valeria Murillo [id number] Valeria Murillo 06/16/[address] [facility] 106 Sebastian Murillo [id number] Valeria Murillo 06/16/2024 1 [place] Valeria Murillo [id number] Valeria Murillo 10/02/[address] [facility] 106 Sebastian Murillo [id number] Valeria Murillo 10/02/2024 1 [place] Valeria Murillo [id number] Valeria Murillo Notes Date Note Type Note Provider Name and Address Organization Details Recorded Time 01/31/2024 text/html Still with some pain in her shoulder. Diabetes no polyphasia polydipsia. [place] using CPAP diabetic peripheral neuropathy bothers her still. Obesity hard to lose weight hypertension takes her medications without side effect ankylosing spondylitis waxes and wanes with regards to symptoms hyponatremia asymptomatic and we have been following that Liat Donaldson MD Attn: [address] [facility], [place], [address], [facility] 02/23/2024 23:55:37 02/07/2024 text/html she was having s ome hip pain seems to be a little bit better today was on the left Liat Donaldson MD Attn: [address] [facility], [place], [address], [facility] 02/23/2024 11:11:18 06/05/2024 text/html dyslipidemia try ing to take her medicine follow low-fat diet hypertension blood pressure is controlled she is not having any problems there diabetes vacillates with her control Liat Donaldson MD Attn: [address] [facility], [place], [address], [facility] 07/17/2024 22:37:56 06/16/2024 text/html MAW 2Reported bypatient.Diet and Nutrition:discussed diet improvement Fracture Risk:no sudden unexplained fractures;history of fractures(toes) Concentration and Memory:no decreased concentrating ability; no memory lapses or loss; does not forget words Speech/Motor difficulties:no speech difficulties; no difficulty expressing formulated concepts; no difficulty with fine manipulative tasks; no difficulty writing/copying; no slowed reaction time; does not knock things over when trying to pick them up Hearing:loss of hearing: in both ears; wears hearing aids Vision:worse both distance and near(glasses, astigmatism) Activities of Daily Living:able to bathe with limited or no assistance; able to contol urination and bowels; able to dress with limited or no assistance; able to feed self with limited or no assistance; able to get out of chair or bed with limited or no assistance; able to groom with limited or no assistance; able to toilet with limited or no assistance Instrumental Activities of Daily Living:able to do house work with limited or no assistance; able to grocery shop with limited or no assistance; able to manage medications with limited or no assistance; able to manage money with limited or no assistance; able to prepare meals with limited or no assistance; able to use the phone with limited or no assistance Falls Risk Assessment:no frequent falls while walking; no fall in the past year; no fall since last visit; no dizziness/vertigo Home Safety:no unsafe rafael hazzards; no unsafe stairs; working smoke/CO detectors; practicing 'safer sex'; has hand bars in the bathroom/shower; good lighting in the home;fire arms Liat Donaldson MD Attn: [address] [place], [address], [facility] 06/19/2024 15:12:58 10/02/2024 text/html following upon h er multiple medical problems or ankylosing spondylitis appears to be stable she has got a history of hyponatremia currently asymptomatic but we will get some blood work her diabetes we will try to get her back on Ozempic. Dyslipidemia she does try to watch her diet and she is taking her rosuvastatin her neuropathy really bothers her but fairly stable. Her blood pressure has been doing good there is no headache chest pain shortness of breath or dizziness Liat Donaldson MD Attn: [address] [place], [address], [facility] 10/04/2024 22:10:41 OBGyn Episode No OBEpisode recorded.
--- OUTSIDE RECORDS SUMMARY | 2024-11-20 10:43 | XMS_ITS | Data Portability ---
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 home sleep study 11/29/22 AHI = 33 [facility] titration sleep study 01/17/23 ResMed medium AirFit F30i full face mask @ 17-20 cmH2O PAP compliance downloaded and interpreted x 20 minutes. Data reviewed and explained to the patient. Average apnea/hypopnea index (AHI) is 7.7. Patient used PAP > 4 hours 91% of the time. PAP is set at 8-16 cmH2O. PAP will be reset at 9-16 cmH2O. Keep ramp at 9 cmH2O. Keep ramp duration at 20 minutes. Oxygen supplementation: none Keep EPR +2. Keep humidity at 3. Patient is benefiting from PAP therapy. Encouraged patient to maintain PAP use more than 70% of the time. Statement of PAP use and benefits will be sent to the home care store. Educated the patient on problems and solutions associated with positive airway pressure (PAP) use. Difficulty tolerating pressure, mask leaks, intolerance of interface, nasal congestion, claustrophobic response, dry mouth, and unintentional mask removal during sleep were covered. Patient has some difficulty tolerating pressure. Patient is advised to practice wearing PAP daily while awake, lower pressure with or without sleeping on sides, activate PAP ramp feature, have blower checked to make sure pressure is set as prescribed and return to sleep center for consideration of auto-adjusting PAP therapy. Dry mouth is a normal occurrence for people who just start out on PAP therapy because they are not used to air blowing in to the throat to hold open. Dry mouth is exacerbated for people who wear nasal PAP mask and whose jaw drops open during sleep. Not only does this create a much less efficient therapy because of leakage, it also causes dry mouth. There are a couple solutions to help prevent this type of problem. A simple solution would be to wear a chinstrap which essentially holds the jaw in place. A second solution would be a switch to a full face mask which covers both the nose and mouth. Although this is another easy solution, using a full face mask for some could seem claustrophobic or confining. There is no silver bullet solution as no single mask is right for everybody. Sometimes it takes a bit of experimentation to find a PAP mask which best meets the patient's needs as well as fits comfortably. Another tactic is to use a humidifier on your PAP machine. Most new PAP machines have integrated humidifiers. Humidification is bear when dealing with symptoms of dry mouth because the humidifier can supply both warm and room temperate air. Even a small amount of humidity in the airflow will help nasal passages to stay hydrated. If a person is using both a full face mask and a PAP machine with a heated humidifier and is still experiencing dry mouth, an ill-fitted PAP mask might be causing the problem. Leakage can be caused by a mask that is to large or small, the wrong style mask, the cushion is degraded or simply because the mask's straps aren't adjusted correctly. If leakage occurs, dry air from the room can leak in while humidification escapes. The result is reduced humidification within the circuit and resulting in dry throat and mouth. Finally, beyond factors involving the PAP machine and mask, dry mouth can also be caused or worsened by dehydration. The general recommendation to during eight 8 oz. glasses of water a day might be too little for many people. When people drink large amounts of coffee or other caffeine beverages, or sweat a lot during the day, making sure to rehydrate is an important part of PAP therapy. Provided the patient with a list of local home care stores where positive airway pressure (PAP) units, accoutrement, and services are available. Home care store selection is based on patient's insurance carrier. Patient will setup an appointment with [facility] for supplies and pressure adjustments. A major predictor of success with use of PAP is follow-up with both the respiratory supplier and the treating physician. The download results can show the treating physician information about adherence to treatment, residual AHI while on treatment and presence of large mask leakage. This information is especially helpful if the patient has residual sleepiness despite treatment. General information on sleep disordered breathing, evaluation of sleep disordered breathing, treatment with PAP therapy, and living with PAP therapy were covered. We discussed with the patient the impact of weight on: Sleep disordered breathing Hypertension Hyperlipidemia DM Urge urinary incontinence Osteopenia Ankylosing spondylitis We discussed with the patient the benefit of PAP therapy on: Sleep disordered breathing Depression Postnasal drip Hypertension DM Educated the patient on sleep hygiene measures. Relaxing rituals to rest easy, understanding foods with positive and negative impact on sleep, creating a peaceful sleep environment, timing of exercise, using herbal sleep aids, and practicing sleep-friendly meditation were covered. To determine how much sleep is needed, the patient will assess where she falls on the spectrum, examine what lifestyle factor such as stress is affecting the quality and quantity of sleep. In general, adults need 7-9 hours of sleep. Educated the patient regarding foods that promote sleep. These include but are not limited to cherries, bananas, toast, oatmeal, and warm milk. Educated the patient regarding foods and drinks to avoid before bedtime. These include but are not limited to aged cheese, chocolate, spicy foods, tomato-based sauces, soy, ginseng tea and processed meat. Advocated influenza vaccination annually and pneumonia vaccination MIRIAM. Advocated weight loss through diet and exercise. Patient's ideal body weight according to height and gender is up to 140 lbs. Encouraged patient to adjust caloric intake to maintain/achieve ideal body weight, emphasizing on fruits, vegetables, whole grains, and fat-free or low-fat products. These include lean meats, poultry, fish, beans, eggs, and nuts and foods that are low in saturated fats, trans-fats, cholesterol, salt (sodium), and glycemic index. Stressed the importance of regular exercise up to the patient's capacity limits. In this case, we recommend 20 min daily walking, 2 days a week of resistance training. Patient to monitor BP daily and bring records to PCP for further management. Follow-up: 3 months, December 2023 [facility] Not available 10/08/2023 14:37:59 01/08/2024 01/08/2024 Assessment: Severe OSAHS, AHI = 33 Plan: The following were reviewed and explained to the patient: [facility] home sleep study 11/29/22 AHI = 33 [facility] titration sleep study 01/17/23 ResMed medium AirFit F30i full face mask @ 17-20 cmH2O PAP compliance downloaded and interpreted x 20 minutes. Data reviewed and explained to the patient. Average apnea/hypopnea index (AHI) is 7.3. Patient used PAP > 4 hours 91% of the time. PAP is set at 9-16 cmH2O. PAP will be reset at 10-15 cmH2O. Keep ramp at 9 cmH2O. Keep ramp duration at 20 minutes. Oxygen supplementation: none Keep EPR +2. Keep humidity at 3. Patient is benefiting from PAP therapy. Encouraged patient to maintain PAP use more than 70% of the time. Statement of PAP use and benefits will be sent to the home care store. Educated the patient on problems and solutions associated with positive airway pressure (PAP) use. Difficulty tolerating pressure, mask leaks, intolerance of interface, nasal congestion, claustrophobic response, dry mouth, and unintentional mask removal during sleep were covered. Patient has some difficulty tolerating pressure. Patient is advised to practice wearing PAP daily while awake, lower pressure with or without sleeping on sides, activate PAP ramp feature, have blower checked to make sure pressure is set as prescribed and return to sleep center for consideration of auto-adjusting PAP therapy. Dry mouth is a normal occurrence for people who just start out on PAP therapy because they are not used to air blowing in to the throat to hold open. Dry mouth is exacerbated for people who wear nasal PAP mask and whose jaw drops open during sleep. Not only does this create a much less efficient therapy because of leakage, it also causes dry mouth. There are a couple solutions to help prevent this type of problem. A simple solution would be to wear a chinstrap which essentially holds the jaw in place. A second solution would be a switch to a full face mask which covers both the nose and mouth. Although this is another easy solution, using a full face mask for some could seem claustrophobic or confining. There is no silver bullet solution as no single mask is right for everybody. Sometimes it takes a bit of experimentation to find a PAP mask which best meets the patient's needs as well as fits comfortably. Another tactic is to use a humidifier on your PAP machine. Most new PAP machines have integrated humidifiers. Humidification is bear when dealing with symptoms of dry mouth because the humidifier can supply both warm and room temperate air. Even a small amount of humidity in the airflow will help nasal passages to stay hydrated. If a person is using both a full face mask and a PAP machine with a heated humidifier and is still experiencing dry mouth, an ill-fitted PAP mask might be causing the problem. Leakage can be caused by a mask that is to large or small, the wrong style mask, the cushion is degraded or simply because the mask's straps aren't adjusted correctly. If leakage occurs, dry air from the room can leak in while humidification escapes. The result is reduced humidification within the circuit and resulting in dry throat and mouth. Finally, beyond factors involving the PAP machine and mask, dry mouth can also be caused or worsened by dehydration. The general recommendation to during eight 8 oz. glasses of water a day might be too little for many people. When people drink large amounts of coffee or other caffeine beverages, or sweat a lot during the day, making sure to rehydrate is an important part of PAP therapy. Provided the patient with a list of local home care stores where positive airway pressure (PAP) units, accoutrement, and services are available. Home care store selection is based on patient's insurance carrier. Patient will setup an appointment with [facility] for supplies and pressure adjustments. A major predictor of success with use of PAP is follow-up with both the respiratory supplier and the treating physician. The download results can show the treating physician information about adherence to treatment, residual AHI while on treatment and presence of large mask leakage. This information is especially helpful if the patient has residual sleepiness despite treatment. General information on sleep disordered breathing, evaluation of sleep disordered breathing, treatment with PAP therapy, and living with PAP therapy were covered. We discussed with the patient the impact of weight on: Sleep disordered breathing Hypertension Hyperlipidemia DM Urge urinary incontinence Osteopenia Ankylosing spondylitis We discussed with the patient the benefit of PAP therapy on: Sleep disordered breathing Depression Postnasal drip Hypertension DM Educated the patient on sleep hygiene measures. Relaxing rituals to rest easy, understanding foods with positive and negative impact on sleep, creating a peaceful sleep environment, timing of exercise, using herbal sleep aids, and practicing sleep-friendly meditation were covered. To determine how much sleep is needed, the patient will assess where she falls on the spectrum, examine what lifestyle factor such as stress is affecting the quality and quantity of sleep. In general, adults need 7-9 hours of sleep. Educated the patient regarding foods that promote sleep. These include but are not limited to cherries, bananas, toast, oatmeal, and warm milk. Educated the patient regarding foods and drinks to avoid before bedtime. These include but are not limited to aged cheese, chocolate, spicy foods, tomato-based sauces, soy, ginseng tea and processed meat. Advocated influenza vaccination annually and pneumonia vaccination MIRIAM. Advocated weight loss through diet and exercise. Patient's ideal body weight according to height and gender is up to 140 lbs. Encouraged patient to adjust caloric intake to maintain/achieve ideal body weight, emphasizing on fruits, vegetables, whole grains, and fat-free or low-fat products. These include lean meats, poultry, fish, beans, eggs, and nuts and foods that are low in saturated fats, trans-fats, cholesterol, salt (sodium), and glycemic index. Stressed the importance of regular exercise up to the patient's capacity limits. In this case, we recommend 20 min daily walking, 2 days a week of resistance training. Patient to monitor BP daily and bring records to PCP for further management. Follow-up: 3 months, March 2024 Not available 01/08/2024 14:33:26 04/08/2024 04/08/2024 Assessment: Severe OSAHS, AHI = 33 Plan: The following were reviewed and explained to the patient: [facility] home sleep study 11/29/22 AHI = 33 [facility] titration sleep study 01/17/23 ResMed medium AirFit F30i full face mask @ 17-20 cmH2O PAP compliance downloaded and interpreted x 20 minutes. Data reviewed and explained to the patient. Average apnea/hypopnea index (AHI) is 7.4. Patient used PAP > 4 hours 72% of the time. PAP is set at 10-15 cmH2O. PAP will be reset at 11-15 cmH2O. Decrease ramp from 9 to 8 cmH2O. Keep ramp duration at 20 minutes. Oxygen supplementation: none Keep EPR +2 to +3 experimental display builder. Keep humidifier on automatic mode. Keep tube temperature on automatic mode. Patient is benefiting from PAP therapy. Encouraged patient to maintain PAP use more than 70% of the time. Statement of PAP use and benefits will be sent to the home care store. Educated the patient on problems and solutions associated with positive airway pressure (PAP) use. Difficulty tolerating pressure, mask leaks, intolerance of interface, nasal congestion, claustrophobic response, dry mouth, and unintentional mask removal during sleep were covered. Patient has some difficulty tolerating pressure. Patient is advised to practice wearing PAP daily while awake, lower pressure with or without sleeping on sides, activate PAP ramp feature, have blower checked to make sure pressure is set as prescribed and return to sleep center for consideration of auto-adjusting PAP therapy. Dry mouth is a normal occurrence for people who just start out on PAP therapy because they are not used to air blowing in to the throat to hold open. Dry mouth is exacerbated for people who wear nasal PAP mask and whose jaw drops open during sleep. Not only does this create a much less efficient therapy because of leakage, it also causes dry mouth. There are a couple solutions to help prevent this type of problem. A simple solution would be to wear a chinstrap which essentially holds the jaw in place. A second solution would be a switch to a full face mask which covers both the nose and mouth. Although this is another easy solution, using a full face mask for some could seem claustrophobic or confining. There is no silver bullet solution as no single mask is right for everybody. Sometimes it takes a bit of experimentation to find a PAP mask which best meets the patient's needs as well as fits comfortably. Another tactic is to use a humidifier on your PAP machine. Most new PAP machines have integrated humidifiers. Humidification is bear when dealing with symptoms of dry mouth because the humidifier can supply both warm and room temperate air. Even a small amount of humidity in the airflow will help nasal passages to stay hydrated. If a person is using both a full face mask and a PAP machine with a heated humidifier and is still experiencing dry mouth, an ill-fitted PAP mask might be causing the problem. Leakage can be caused by a mask that is to large or small, the wrong style mask, the cushion is degraded or simply because the mask's straps aren't adjusted correctly. If leakage occurs, dry air from the room can leak in while humidification escapes. The result is reduced humidification within the circuit and resulting in dry throat and mouth. Finally, beyond factors involving the PAP machine and mask, dry mouth can also be caused or worsened by dehydration. The general recommendation to during eight 8 oz. glasses of water a day might be too little for many people. When people drink large amounts of coffee or other caffeine beverages, or sweat a lot during the day, making sure to rehydrate is an important part of PAP therapy. Provided the patient with a list of local home care stores where positive airway pressure (PAP) units, accoutrement, and services are available. Home care store selection is based on patient's insurance carrier. Patient will setup an appointment with [facility] for supplies and pressure adjustments. A major predictor of success with use of PAP is follow-up with both the respiratory supplier and the treating physician. The download results can show the treating physician information about adherence to treatment, residual AHI while on treatment and presence of large mask leakage. This information is especially helpful if the patient has residual sleepiness despite treatment. General information on sleep disordered breathing, evaluation of sleep disordered breathing, treatment with PAP therapy, and living with PAP therapy were covered. We discussed with the patient the impact of weight on: Sleep disordered breathing Hypertension Hyperlipidemia DM Urge urinary incontinence Osteopenia Ankylosing spondylitis We discussed with the patient the benefit of PAP therapy on: Sleep disordered breathing Depression Postnasal drip Hypertension DM Educated the patient on sleep hygiene measures. Relaxing rituals to rest easy, understanding foods with positive and negative impact on sleep, creating a peaceful sleep environment, timing of exercise, using herbal sleep aids, and practicing sleep-friendly meditation were covered. To determine how much sleep is needed, the patient will assess where she falls on the spectrum, examine what lifestyle factor such as stress is affecting the quality and quantity of sleep. In general, adults need 7-9 hours of sleep. Educated the patient regarding foods that promote sleep. These include but are not limited to cherries, bananas, toast, oatmeal, and warm milk. Educated the patient regarding foods and drinks to avoid before bedtime. These include but are not limited to aged cheese, chocolate, spicy foods, tomato-based sauces, soy, ginseng tea and processed meat. Advocated influenza vaccination annually and pneumonia vaccination MIRIAM. Advocated weight loss through diet and exercise. Patient's ideal body weight according to height and gender is up to 140 lbs. Encouraged patient to adjust caloric intake to maintain/achieve ideal body weight, emphasizing on fruits, vegetables, whole grains, and fat-free or low-fat products. These include lean meats, poultry, fish, beans, eggs, and nuts and foods that are low in saturated fats, trans-fats, cholesterol, salt (sodium), and glycemic index. Stressed the importance of regular exercise up to the patient's capacity limits. In this case, we recommend 20 min daily walking, 2 days a week of resistance training. Patient to monitor BP daily and bring records to PCP for further management. Follow-up: 3 months, June 2024 Not available 04/08/2024 14:31:27 07/09/2024 07/09/2024 Assessment: Severe OSAHS, AHI = 33 Plan: The following were reviewed and explained to the patient: [facility] home sleep study 11/29/22 AHI = 33 [facility] titration sleep study 01/17/23 ResMed medium AirFit F30i full face mask @ 17-20 cmH2O PAP compliance downloaded and interpreted x 20 minutes. Data reviewed and explained to the patient. Average apnea/hypopnea index (AHI) is 9.0. Patient used PAP > 4 hours 72% of the time. PAP is set at 11-15 cmH2O. PAP will be reset at 8-15 cmH2O. Patient has lost 17 lbs in 1.5 years. Turn ramp off. Oxygen supplementation: none Keep EPR +3 experimental display builder. Keep humidifier on automatic mode. Keep tube temperature on automatic mode. Patient is benefiting from PAP therapy. Encouraged patient to maintain PAP use more than 70% of the time. Statement of PAP use and benefits will be sent to the home care store. Educated the patient on problems and solutions associated with positive airway pressure (PAP) use. Difficulty tolerating pressure, mask leaks, intolerance of interface, nasal congestion, claustrophobic response, dry mouth, and unintentional mask removal during sleep were covered. Patient has some difficulty tolerating pressure. Patient is advised to practice wearing PAP daily while awake, lower pressure with or without sleeping on sides, activate PAP ramp feature, have blower checked to make sure pressure is set as prescribed and return to sleep center for consideration of auto-adjusting PAP therapy. Dry mouth is a normal occurrence for people who just start out on PAP therapy because they are not used to air blowing in to the throat to hold open. Dry mouth is exacerbated for people who wear nasal PAP mask and whose jaw drops open during sleep. Not only does this create a much less efficient therapy because of leakage, it also causes dry mouth. There are a couple solutions to help prevent this type of problem. A simple solution would be to wear a chinstrap which essentially holds the jaw in place. A second solution would be a switch to a full face mask which covers both the nose and mouth. Although this is another easy solution, using a full face mask for some could seem claustrophobic or confining. There is no silver bullet solution as no single mask is right for everybody. Sometimes it takes a bit of experimentation to find a PAP mask which best meets the patient's needs as well as fits comfortably. Another tactic is to use a humidifier on your PAP machine. Most new PAP machines have integrated humidifiers. Humidification is bear when dealing with symptoms of dry mouth because the humidifier can supply both warm and room temperate air. Even a small amount of humidity in the airflow will help nasal passages to stay hydrated. If a person is using both a full face mask and a PAP machine with a heated humidifier and is still experiencing dry mouth, an ill-fitted PAP mask might be causing the problem. Leakage can be caused by a mask that is to large or small, the wrong style mask, the cushion is degraded or simply because the mask's straps aren't adjusted correctly. If leakage occurs, dry air from the room can leak in while humidification escapes. The result is reduced humidification within the circuit and resulting in dry throat and mouth. Finally, beyond factors involving the PAP machine and mask, dry mouth can also be caused or worsened by dehydration. The general recommendation to during eight 8 oz. glasses of water a day might be too little for many people. When people drink large amounts of coffee or other caffeine beverages, or sweat a lot during the day, making sure to rehydrate is an important part of PAP therapy. Provided the patient with a list of local home care stores where positive airway pressure (PAP) units, accoutrement, and services are available. Home care store selection is based on patient's insurance carrier. Patient will setup an appointment with [facility] for supplies and pressure adjustments. A major predictor of success with use of PAP is follow-up with both the respiratory supplier and the treating physician. The download results can show the treating physician information about adherence to treatment, residual AHI while on treatment and presence of large mask leakage. This information is especially helpful if the patient has residual sleepiness despite treatment. General information on sleep disordered breathing, evaluation of sleep disordered breathing, treatment with PAP therapy, and living with PAP therapy were covered. We discussed with the patient the impact of weight on: Sleep disordered breathing Hypertension Hyperlipidemia DM Urge urinary incontinence Osteopenia Ankylosing spondylitis We discussed with the patient the benefit of PAP therapy on: Sleep disordered breathing Depression Postnasal drip Hypertension DM Educated the patient on sleep hygiene measures. Relaxing rituals to rest easy, understanding foods with positive and negative impact on sleep, creating a peaceful sleep environment, timing of exercise, using herbal sleep aids, and practicing sleep-friendly meditation were covered. To determine how much sleep is needed, the patient will assess where she falls on the spectrum, examine what lifestyle factor such as stress is affecting the quality and quantity of sleep. In general, adults need 7-9 hours of sleep. Educated the patient regarding foods that promote sleep. These include but are not limited to cherries, bananas, toast, oatmeal, and warm milk. Educated the patient regarding foods and drinks to avoid before bedtime. These include but are not limited to aged cheese, chocolate, spicy foods, tomato-based sauces, soy, ginseng tea and processed meat. Advocated influenza vaccination annually and pneumonia vaccination MIRIAM. Advocated weight loss through diet and exercise. Patient's ideal body weight according to height and gender is up to 140 lbs. Encouraged patient to adjust caloric intake to maintain/achieve ideal body weight, emphasizing on fruits, vegetables, whole grains, and fat-free or low-fat products. These include lean meats, poultry, fish, beans, eggs, and nuts and foods that are low in saturated fats, trans-fats, cholesterol, salt (sodium), and glycemic index. Stressed the importance of regular exercise up to the patient's capacity limits. In this case, we recommend 20 min daily walking, 2 days a week of resistance training. Patient to monitor BP daily and bring records to PCP for further management. 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 home sleep study 11/29/22 AHI = 33 [facility] titration sleep study 01/17/23 ResMed medium AirFit F30i full face mask @ 17-20 cmH2O PAP compliance downloaded and interpreted x 20 minutes. Data reviewed and explained to the patient. Average apnea/hypopnea index (AHI) is 11.2. Patient used PAP > 4 hours 62% of the time. PAP is set at 8-15 cmH2O. PAP will be reset at 12-15 cmH2O. Keep ramp start at 8 cmH2O. Keep ramp duration at 20 minutes. Oxygen supplementation: none Keep EPR +3 experimental display builder. Keep humidifier on automatic mode. Keep tube temperature on automatic mode. Patient is benefiting from PAP therapy. Encouraged patient to maintain PAP use more than 70% of the time. Statement of PAP use and benefits will be sent to the home care store. Educated the patient on problems and solutions associated with positive airway pressure (PAP) use. Difficulty tolerating pressure, mask leaks, intolerance of interface, nasal congestion, claustrophobic response, dry mouth, and unintentional mask removal during sleep were covered. Patient has some difficulty tolerating pressure. Patient is advised to practice wearing PAP daily while awake, lower pressure with or without sleeping on sides, activate PAP ramp feature, have blower checked to make sure pressure is set as prescribed and return to sleep center for consideration of auto-adjusting PAP therapy. Dry mouth is a normal occurrence for people who just start out on PAP therapy because they are not used to air blowing in to the throat to hold open. Dry mouth is exacerbated for people who wear nasal PAP mask and whose jaw drops open during sleep. Not only does this create a much less efficient therapy because of leakage, it also causes dry mouth. There are a couple solutions to help prevent this type of problem. A simple solution would be to wear a chinstrap which essentially holds the jaw in place. A second solution would be a switch to a full face mask which covers both the nose and mouth. Although this is another easy solution, using a full face mask for some could seem claustrophobic or confining. There is no silver bullet solution as no single mask is right for everybody. Sometimes it takes a bit of experimentation to find a PAP mask which best meets the patient's needs as well as fits comfortably. Another tactic is to use a humidifier on your PAP machine. Most new PAP machines have integrated humidifiers. Humidification is bear when dealing with symptoms of dry mouth because the humidifier can supply both warm and room temperate air. Even a small amount of humidity in the airflow will help nasal passages to stay hydrated. If a person is using both a full face mask and a PAP machine with a heated humidifier and is still experiencing dry mouth, an ill-fitted PAP mask might be causing the problem. Leakage can be caused by a mask that is to large or small, the wrong style mask, the cushion is degraded or simply because the mask's straps aren't adjusted correctly. If leakage occurs, dry air from the room can leak in while humidification escapes. The result is reduced humidification within the circuit and resulting in dry throat and mouth. Finally, beyond factors involving the PAP machine and mask, dry mouth can also be caused or worsened by dehydration. The general recommendation to during eight 8 oz. glasses of water a day might be too little for many people. When people drink large amounts of coffee or other caffeine beverages, or sweat a lot during the day, making sure to rehydrate is an important part of PAP therapy. Provided the patient with a list of local home care stores where positive airway pressure (PAP) units, accoutrement, and services are available. Home care store selection is based on patient's insurance carrier. Patient will setup an appointment with [facility] for supplies and pressure adjustments. A major predictor of success with use of PAP is follow-up with both the respiratory supplier and the treating physician. The download results can show the treating physician information about adherence to treatment, residual AHI while on treatment and presence of large mask leakage. This information is especially helpful if the patient has residual sleepiness despite treatment. General information on sleep disordered breathing, evaluation of sleep disordered breathing, treatment with PAP therapy, and living with PAP therapy were covered. We discussed with the patient the impact of weight on: Sleep disordered breathing Hypertension Hyperlipidemia DM Urge urinary incontinence Osteopenia Ankylosing spondylitis We discussed with the patient the benefit of PAP therapy on: Sleep disordered breathing Depression Postnasal drip Hypertension DM Educated the patient on sleep hygiene measures. Relaxing rituals to rest easy, understanding foods with positive and negative impact on sleep, creating a peaceful sleep environment, timing of exercise, using herbal sleep aids, and practicing sleep-friendly meditation were covered. To determine how much sleep is needed, the patient will assess where she falls on the spectrum, examine what lifestyle factor such as stress is affecting the quality and quantity of sleep. In general, adults need 7-9 hours of sleep. Educated the patient regarding foods that promote sleep. These include but are not limited to cherries, bananas, toast, oatmeal, and warm milk. Educated the patient regarding foods and drinks to avoid before bedtime. These include but are not limited to aged cheese, chocolate, spicy foods, tomato-based sauces, soy, ginseng tea and processed meat. Advocated influenza vaccination annually and pneumonia vaccination MIRIAM. Advocated weight loss through diet and exercise. Patient's ideal body weight according to height and gender is up to 140 lbs. Encouraged patient to adjust caloric intake to maintain/achieve ideal body weight, emphasizing on fruits, vegetables, whole grains, and fat-free or low-fat products. These include lean meats, poultry, fish, beans, eggs, and nuts and foods that are low in saturated fats, trans-fats, cholesterol, salt (sodium), and glycemic index. Stressed the importance of regular exercise up to the patient's capacity limits. In this case, we recommend 20 min daily walking, 2 days a week of resistance training. Patient to monitor BP daily and bring records to PCP for further management. Follow-up: 3 months, November 2024 Not available 09/15/2024 11:23:38 Plan of Treatment Reminders Order Date Submit Date Provider Last Modified By Organization Details Last Modified Time Details Appointments Any 15 025 10:00AM Gilberto Mercedes MD Not available Not available Not available Lab None record ed. Referral None record ed. Procedures None record ed. Surgeries None record ed. Imaging None record ed. Medication Orders None record ed. Patient TargetsNo targets recorded. Patient InstructionsNo instructions recorded. Reason for Referral None Reported. Results Created Date Observation Date Name Description Value Unit Range Abnormal Flag Note LastModifiedBy Organization Detail LastModifiedTime 11/29/19 24 XR, shoul leonard, 2 or more view [facility] [address] [facility] [place] [address] Patialana t Name: VALERIA LADD Access ion #: [id number] Sex: F : 1949 6 Dictat ed By: Shemar Babcock Attend ing Physic anabel: ALEXX DONALDSON Orderi ng Physic anabel: ALEXX DONALDSON Exam Date: 2023 13:34 PM Exam Name: XR SHOULD ER RT 2V+ Admitt ing Diagno sis(es ): right should er radiog raph CLINIC AL INDICA TION: pain TECHNI QUE: 4 radiog raphic views of the right should er were obtain ed. Compar ricci: none FINDIN GS: There is no eviden ce of acute fractu re or disloc ation. The visual ized joint space is well mainta ined. The alignm ent is anatom ical. Soft tissue s are unrema rkable . IMPRES DEVAN: No acute fractu re or disloc ation. Electr onical ly Signed by: Shemar Babcock at 2023 15:35: 22 PM Page 1 [email or web address] [facility] (Imaging) [address] [place], [address], 02/05/2024 09:05:14 Result Notes None recorded. 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 334839659 Active 2018 Not Available [facility] 4 13:35:34 Malaise and fatigue 982677206 Completed Not Available [facility] 3 04:49:30 Knee pain Completed Not Available [facility] 3 04:49:30 Pain in right knee Completed Not Available [facility] 3 04:49:30 Bronchit is 49950140 Completed Not Available [facility] 3 04:49:30 Blood in urine 97993202 Completed Not Available [facility] 3 04:49:30 Dyslipid emia 150249162 Active 2018 Not Available [facility] 4 13:35:34 Acute urinary tract infectio n 667364548 Completed Not Available [facility] 3 04:49:30 Pain of shoulder region 63234142 Completed Not Available [facility] 3 04:49:30 [facility] hyperten devan 02793966 Active 2016 Not Available [facility] 4 13:35:34 Disorder of skin and/or subcutan eous tissue 04265235 Completed Not Available [facility] 3 04:49:31 Ankylosi ng spondyli tis 5561973 Active 2020 diagnose d in July 2020 by Rheumato logy Not Available [facility] 4 13:35:34 Notes:Medical History: Depre ssion Bilateral hearing loss/tinnitus Postnasal drip Obesity with severe OSAHS, AHI = 33, 11/29/22, on autoCPAP c/o IVRC Hypertension Hyperlipidemia T1DM with neuropathy Hyponatremia LINDA Urge urinary incontinence Vit D deficiency Osteopenia Ankylosing spondylitis Right foot drop Procedure History: Colonoscopy 2017 Bilateral knee injection Laminectomy and decompression 2020 Cyst excision Problem Notes None recorded. Procedures Surgical History Date Name Laterality Status Provider Name and Address Organization Details Recorded Time 10/26/19 17 Colonoscopy completed Not Available [facility] 09/21/19 04:43:10 08/18/19 12 Most Recent Bone Density completed Not Available [facility] 09/20/2022 04:43:08 Laminectomy completed Not Available [facility] 09/20/2022 04:43:10 injection of knee completed Not Available [facility] 09/20/2022 04:43:10 Cyst Removal completed SIVAN Horan [place] [facility] 10/10/2022 11:47:33 Imaging Results Imaging Date Name Status LastModified by Organiz ation Details LastModified Time 11/29/2023 XR, shoulder, 2 or more view completed [email or web address] [facility] (Imaging) [address] [place], [address], 02/05/2024 09:05:14 Procedure Notes None recorded. Medical Equipment None Reported. Allergies Allergen ID Allergen Name Allergen Category Reaction Reaction Severity Criticality Documentation Date Start Date Code Code System Note Provider Name and Address Organization Details Recorded Time 7168 Cipro medicatio n nausea moderate Not available 09/20/2022201256 3 RxNorm Not Available [facility] 04:56:40 Medications Name Sig Start Date Stop Date Status Note LastModified by Organization Details LastModified Time celecoxib 200 mg capsule TAKE 1 CAPSULE TWICE DAILY active Not Available Not Available No t Available amoxicillin 500 mg capsule Take 1 capsule every 8 hours by oral route for 7 days. 10/10 completed Not Available Not Available Not Available doxycycline hyclate 100 mg capsule Take 1 capsule twice a day by oral route for 7 days. 10/10 completed Not Available Not Available Not Available azithromyci n 250 mg tablet TAKE 2 TABLETS BY MOUTH FOR 1 DAY THEN TAKE 1 TABLET BY MOUTH DAILY FOR 4 DAYS 04/08 completed Not Available Not Available Not Available ibuprofen 800 mg tablet TK 1 T PO TID WF active Not Available Not Available No t Available FreeStyle Test strips USE TO CHECK SUGAR ONCE DAILY IN CASE OF SENSOR FAILURE. 10/10 completed Not Available Not Available Not Available tolterodine ER 4 mg capsule,ext ended release 24 hr Take 1 capsule every day by oral route. active Not Available Not Available No t Available hydrocodone 5 mg-acetamin ophen 325 mg tablet Take 1 tablet 3 times a day by oral route as needed for 7 days. 01/30 completed Not Available Not Available Not Available tretinoin 0.025 % topical cream APPLY TO THE AFFECTED AREA(S) BY TOPICAL ROUTE ONCE DAILY AT BEDTIME 01/12 completed Not Available Not Available Not Available prednisone 20 mg tablet Take 2 tablets every day by oral route for 5 days. active Not Available Not Available No t Available doxycycline hyclate 50 mg capsule TK ONE C PO BID active Not Available Not Available No t Available sulfasalazi ne 500 mg tablet,berenice yed release TAKE 3 TABLETS TWICE A DAY active Not Available Not Available No t Available metformin 850 mg tablet TAKE 1 TABLET TWICE DAILY WITH MEALS DIRECTED active Not Available Not Available No t Available permethrin 5 % topical cream 04/29 completed Not Available Not Available Not Available clindamycin HCl 150 mg capsule TAKE 1 CAPSULE PO Q 6 HOURS UNTIL ALL ARE TAKEN 02/14 completed Not Available Not Available Not Available sulfamethox azole 800 mg-trimetho prim 160 mg tablet 09/24 completed Not Available Not Available Not Available tramadol 50 mg tablet TAKE 1 TO 2 TABLETS 3 TIMES A DAY WITH OVER-THE- COUNTER TYLENOL FOR PAIN CONTROL (VARY TRAMADOL DOSE BASED ON SEVERITY OF PAIN) active Not Available Not Available No t Available triamcinolo ne acetonide 0.1 % topical cream 09/29 completed Not Available Not Available Not Available meloxicam 7.5 mg tablet active Not Available Not Available Not Available doxycycline monohydrate 50 mg capsule 02/27 completed Not Available Not Available Not Available methotrexat e sodium 2.5 mg tablet 02/14 completed Not Available Not Available Not Available Humalog U-100 Insulin 100 unit/mL subcutaneou s solution USE VIA INSULIN PUMP UP TO 70 UNITS DAILY active Not Available Not Available No t Available amitriptyli ne 10 mg tablet TK 1 T PO QHS 09/24 completed Not Available Not Available Not Available Cipro 500 mg tablet Take 1 tablet every 12 hours by oral route for 7 days. 11/06 completed Not Available Not Available Not Available metronidazo le 0.75 % topical cream 07/10 completed Not Available Not Available Not Available Polytrim 10,000 unit-1 mg/mL eye drops 07/10 completed Not Available Not Available Not Available gabapentin 300 mg capsule TAKE 1 CAPSULE EVERY MORNING, 1 CAPSULE WITH LUNCH AND 2 CAPSULES NIGHTLY active Not Available Not Available No t Available diclofenac sodium 75 mg tablet,berenice yed release TAKE 1 TABLET BY MOUTH TWICE DAILY 09/24 completed Not Available Not Available Not Available folic acid 1 mg tablet 02/14 completed Not Available Not Available Not Available mupirocin 2 % topical ointment 03/23 completed Not Available Not Available Not Available Novolog U-100 Insulin aspart 100 unit/mL subcutaneou s solution active Not Available Not Available N ot Available oxycodone-a cetaminophe n 7.5 mg-325 mg tablet TK 1 T PO Q 6 H FOR 7 DAYS PRN active Not Available Not Available No t Available methylpredn isolone 4 mg tablets in a dose pack FOLLOW PACKAGE DIRECTION S 10/11 completed Not Available Not Available Not Available losartan 50 mg-hydrochl orothiazide 12.5 mg tablet TAKE 1 TABLET DAILY active Not Available Not Available No t Available methadone 5 mg tablet active Not Available Not Available No t Available cefdinir 300 mg capsule Take 1 capsule twice a day by oral route. active Not Available Not Available No t Available fluticasone propionate 50 mcg/actuati on nasal spray,suspe nsion [place] 1 spray every day by intranasa l route. 06/06 completed Not Available Not Available Not Available Naftin 1 % topical cream 04/29 completed Not Available Not Available Not Available amoxicillin 875 mg-potassiu m clavulanate 125 mg tablet TK 1 T PO BID FOR 7 DAYS 11/06 completed Not Available Not Available Not Available Tylenol Extra Strength 500 mg tablet Take 2 tablets every 6 hours by oral route. 01/31 completed Not Available Not Available Not Available ciclopirox 0.77 % topical cream APPLY TOPICALLY TO AFFECTED AREA OF FOOT TWICE DAILY active Not Available Not Available No t Available olmesartan 20 mg-hydrochl orothiazide 12.5 mg tablet TAKE 1 TABLET DAILY 11/21 completed Not Available Not Available Not Available rosuvastati n 10 mg tablet TAKE 1 TABLET DAILY active Not Available Not Available No t Available bupropion HCl XL 150 mg 24 hr tablet, extended release Take 1 tablet twice a day by oral route. 10/07 completed Not Available Not Available Not Available erythromyci n with ethanol 2 % topical solution 07/10 completed Not Available Not Available Not Available nitrofurant oin monohydrate /macrocryst als 100 mg capsule Take 1 capsule every 12 hours by oral route for 5 10/10 completed Not Available Not Available Not Available Vytorin 10 mg-20 mg tablet TAKE 1 TABLET DAILY 10/26 completed Not Available Not Available Not Available duloxetine 60 mg capsule,del ayed release TAKE 1 CAPSULE DAILY active Not Available Not Available No t Available Cymbalta 30 mg capsule,del ayed release Take 1 capsule twice a day by oral route. 01/22 completed Not Available Not Available Not Available solifenacin 5 mg tablet TAKE 1 TABLET DAILY active Not Available Not Available No t Available Vesicare 10 mg tablet 08/01 completed Not Available Not Available Not Available chlorhexidi ne gluconate 0.12 % mouthwash 10/10 completed Not Available Not Available Not Available Fish Oil 01/31 completed Not Available Not Available Not Available biotin 64688 mcg 1 tablet daily 01/31 completed Not Available Not Available Not Available Stool Softener 05/07 completed Not Available Not Available Not Available Vitamin D3 09/29 completed Not Available Not Available Not Available Multiple Vitamin Essential 01/31 completed Not Available Not Available Not Available Cinnamon 1000mg 1 tab. daily 01/31 completed Not Available Not Available Not Available Zostavax (PF) 19,400 unit/0.65 mL subcutaneou s suspension 05/28 completed Not Available Not Available Not Available ProAir HFA 90 mcg/actuati on aerosol inhaler INHALE 2 PUFFS PO Q 4 TO 6 H PRN 11/04 completed Not Available Not Available Not Available Gavilyte-C 240 gram-22.72 gram-6.72 gram-5.84 gram oral solution 02/14 completed Not Available Not Available Not Available B12 02/14 completed Not Available Not Available Not Available Suprep Bowel Prep Kit 17.5 gram-3.13 gram-1.6 gram oral solution TK UTD 10/26 completed Not Available Not Available Not Available Bydureon 2 mg subcutaneou s extended release suspension 11/21 completed Not Available Not Available Not Available Lotemax 0.5 % eye gel drops 07/10 completed Not Available Not Available Not Available Virt-Sony Forte 2.5 mg-25 mg-2 mg tablet TAKE 1 TABLET PO BID 11/21 completed Not Available Not Available Not Available Prolensa 0.07 % eye drops 11/06 completed Not Available Not Available Not Available Fluzone 7029-5742 45 mcg (15 mcg x 3)/0.5 mL intramuscul ar suspension TO BE ADMINISTE RED BY PHARMACIS T FOR IMMUNIZAT ION active Not Available Not Available No t Available Simponi ARIA 09/29 completed Not Available Not Available Not Available Fluzone 8537-1492 (PF) 45 mcg (15 mcg x 3)/0.5 mL IM syringe TO BE ADMINISTE RED BY PHARMACIS T FOR IMMUNIZAT ION active Not Available Not Available No t Available Fluzone High-Dose (PF) 180 mcg/0.5 mL intramuscul ar syringe TO BE ADMINISTE RED BY PHARMACIS T FOR IMMUNIZAT ION active Not Available Not Available No t Available Fluzone High-Dose (PF) 180 mcg/0.5 mL intramuscul ar syringe TO BE ADMINISTE RED BY PHARMACIS T FOR IMMUNIZAT ION active Not Available Not Available No t Available Dexcom G6 Sensor device USE TO CHECK BLOOD SUGAR AND CHANGE EVERY 10 DAYS 01/31 completed Not Available Not Available Not Available Dexcom G6 Transmitter device USE DIRECTED 01/31 completed Not Available Not Available Not Available Fluzone High-Dose (PF) 180 mcg/0.5 mL intramuscul ar syringe active Not Available Not Available N ot Available turmeric qod 01/31 completed Not Available Not Available Not Available Fluzone High-Dose (PF) 180 mcg/0.5 mL intramuscul ar syringe TO BE ADMINISTE RED BY PHARMACIS T FOR IMMUNIZAT ION 08/19 completed Not Available Not Available Not Available ID NOW COVID-19 Test Kit TEST DIRECTED TODAY 06/06 completed Not Available Not Available Not Available COVID-19 test specimen collection DIRECTED 10/11 completed Not Available Not Available Not Available Fluad Quad (6 5yr up)(PF) 60 mcg (15 mcg x 4)/0.5mL IM syringe active Not Available Not Available Not Available BinaxNOW COVID-19 Ag Self Test kit USE DIRECTED 01/30 completed Not Available Not Available Not Available Paxlovid 300 mg (150 mg x 2)-100 mg tablets in a dose pack Take 1 dose pk by oral route. 10/10 completed Not Available Not Available Not Available Omnipod 5 G6 Pods (Gen 5) subcutaneou s cartridge 03/23 completed Not Available Not Available Not Available Omnipod 5 G6 Intro Kit (Gen 5) subcutaneou s cartridge with controller 01/31 completed Not Available Not Available Not Available Ozempic 0.25 mg or 0.5 mg (2 mg/3 mL) subcutaneou s pen injector INJECT 0.25 MG UNDER SKIN EVERY WEEK FOR 4 WEEKS THEN INCREASE TO 0.5 MG EVERY WEEK active Not Available Not Available No t Available Omnipod 5 G6-G7 Pods (Gen 5) subcutaneou s cartridge CHANGE POD EVERY 3 DAYS active Not Available Not Available No t Available Vitals Date Recorded Body height Body mass index (BMI) Body weight Heart rate Oxygen saturation Oxygen saturation in Arterial blood by Pulse oximetry Provider Name and Address Organization Details Last Updated DateTime 4 167.64 cm 35.3 kg/m2 11488.2 9 g 92 /min 95 % 95 % Yissel Asher MA [employer] [facility] [employer] 4 14:03:16 Date Recorded Body temperature Heart rate Respiratory rate Systolic blood pressure Diastolic blood pressure Provider Name and Address Organization Details Last Updated DateTime 4 97.2 [degF] 92 /min 14 /min 144 mm[Hg] 76 mm[Hg] Gilberto Mercedes MD [address] [facility] [address], [place], [address], [employer] [facility] [employer] 4 14:09:48 Date Recorded Body height Body mass index (BMI) Body weight Body temperature Heart rate Oxygen saturation Oxygen saturation in Arterial blood by Pulse oximetry Systolic blood pressure Diastolic blood pressure Provider Name and Address Organization Details Last Updated DateTime 4 167.64 cm 35 kg/m2 27435.5 4 g 97 [degF] 73 /min 95 % 95 % 130 mm[Hg] 70 mm[Hg] Terese Young CMA [facility] [employer] [facility] 14:09:21 Date Recorded Heart rate Respiratory rate Provider N monika and Address Organization Details Last Updated DateTime 01/08/2024 73 /min 15 /min Gilberto Mercedes MD [address], [place] [address], [place], [address], [facility] [employer] [facility] 01/08/2024 14:38:30 Date Recorded Body height Body mass index (BMI) Body weight Body temperature Heart rate Oxygen saturation Oxygen saturation in Arterial blood by Pulse oximetry Systolic blood pressure Diastolic blood pressure Provider Name and Address Organization Details Last Updated DateTime 4 167.64 cm 34.2 kg/m2 77015.5 8 g 98.3 [degF] 73 /min 95 % 95 % 126 mm[Hg] 68 mm[Hg] Sarah Rubin MA [facility] [employer] [facility] 14:19:03 Date Recorded Heart rate Respiratory rate Provider N monika and Address Organization Details Last Updated DateTime 04/08/2024 73 /min 15 /min Gilberto Mercedes MD [address], [place] [address], [place], [address], [facility] [employer] [facility] 04/08/2024 14:29:33 Date Recorded Body height Body mass index (BMI) Body weight Body temperature Heart rate Systolic blood pressure Diastolic blood pressure Provider Name and Address Organization Details Last Updated DateTime 4 167.64 cm 33.1 kg/m2 46352.1 5 g 97.8 [degF] 84 /min 122 mm[Hg] 72 mm[Hg] Yissel Asher MA [facility] [employer] [facility] 14:10:41 Date Recorded Oxygen saturation Oxygen saturation in Arterial blood by Pulse oximetry Heart rate Respiratory rate Provider Name and Address Organization Details Last Updated DateTime 07/09/2024 98 % 98 % 84 /min 14 /min Gilberto Mercedes MD [address], [place] [address], [place], [address], [facility] [employer] [facility] 14:26:32 Date Recorded Body height Body mass index (BMI) Body weight Body temperature Heart rate Oxygen saturation Oxygen saturation in Arterial blood by Pulse oximetry Systolic blood pressure Diastolic blood pressure Provider Name and Address Organization Details Last Updated DateTime 167.64 cm 33.1 kg/m2 55263.4 4 g 98.1 [degF] 74 /min 97 % 97 % 134 mm[Hg] 74 mm[Hg] Yissel Asher [place] [employer] [facility] [employer] 10:47:05 Date Recorded Heart rate Respiratory rate Provider N monika and Address Organization Details Last Updated DateTime 09/15/2024 74 /min 15 /min Gilberto Mercedes MD [address] [facility], [facility] [address], [place], [address], [place] [employer] [facility] [employer] 09/15/2024 11:15:21 Social History Question Answer Notes LastModified by Organization Details LastModified Time Tobacco Smoking Status Former Smoker quit 1994 Not Available [employer] 09/20/2022 04:42:47 Do You Have An Advance Directive? Yes MIGRATION.0301 [id number] Information not available 09/20/2022 What Is Your Level Of Alcohol Consumption? Occasional MIGRATION.0301 444869 Information not available 09/20/2022 Do You Wear A Helmet When Biking? No MIGRATION.0301 821391 Information not available 09/20/2022 Are You Blind Or Do You Have Difficulty Seeing? No MIGRATION.0301 183404 Information not available 09/20/2022 What Is Your Level Of Caffeine Consumption? Heavy MIGRATION.0301 447246 Information not available 09/20/2022 How Much Tobacco Do You Chew? None MIGRATION.0301 481644 Information not available 09/20/2022 In The 14 Days Before Symptom Onset, Have You Had Close Contact With A Laboratory-conf irmed COVID-19 While That Case Was Ill? No MIGRATION.0301 907619 Information not available 09/20/2022 In The 14 Days Before Symptom Onset, Have You Had Close Contact With A Person Who Is Under Investigation For COVID-19 While That Person Was Ill? No MIGRATION.0301 988839 Information not available 09/20/2022 Are You Currently Employed? No Information not available 07/09/2024 Are You Deaf Or Do You Have Serious Difficulty Hearing? Yes Has Hearing Aids MIGRATION.0301 382493 Information not available 09/20/2022 What Type Of Diet Are You Following? REGULAR Sometimes DM Diet MIGRATION.0301 592203 Information not available 09/20/2022 Which Illicit Or Recreational Drugs Have You Used? None MIGRATION.0301 197800 Information not available 09/20/2022 Do You Or Have You Ever Used E-cigarettes Or Vape? Never Used Electronic Cigarettes MIGRATION.0301 766149 Information not available 09/20/2022 Do You Have An Electrostatic Air Filter? Yes Information not available 01/31/2023 What Is Your Occupation? Retired MIGRATION.0301 292966 Information not available 09/20/2022 Have You Been Exposed To Chemicals Or Toxins? Yes Information not available 01/31/2023 Have There Been Any Changes To Your Family Or Social Situation? No MIGRATION.0301 362146 Information not available 09/20/2022 What Is The Fluoride Status Of Your Home? Unknown MIGRATION.0301 334717 Information not available 09/20/2022 When Did You Quit Smoking? 16+yearssincelast cigarette MIGRATION.0301 894531 Information not available 09/20/2022 Are There Any Guns Present In Your Home? Yes MIGRATION.0301 279107 Information not available 09/20/2022 Do You Have A Humidifier? Yes Information not available 01/31/2023 Do You Use Insect Repellent Routinely? No MIGRATION.0301 379653 Information not available 09/20/2022 [facility] MIGRATION.0301 491336 Information not available 09/20/2022 Do You Have A Medical Power Of Network Administrator? Yes MIGRATION.0301 702302 Information not available 09/20/2022 Do You Have Moisture Problems In Your Home? No Information not available 01/31/2023 What Was The Date Of Your Most Recent Tobacco Screening? 09/15/2024 Information not available 09/15/2024 Have You Ever Been Counseled For Unhealthy Alcohol Use? No MIGRATION.0301 213610 Information not available 09/20/2022 Do You Have Any Pets? Yes MIGRATION.0301 028586 Information not available 09/20/2022 What Is Your Relationship Status? MIGRATION.0301 899600 Information not available 09/20/2022 Do You Use Your Seat Belt Or Car Seat Routinely? Yes MIGRATION.0301 667975 Information not available 09/20/2022 Do You Have Smoke And Carbon Monoxide Detectors In Your Home? Yes MIGRATION.0301 782645 Information not available 09/20/2022 Are You Passively Exposed To Smoke? No MIGRATION.0301 716872 Information not available 09/20/2022 Do You Or Have You Ever Used Smokeless Tobacco? Never Used Smokeless Tobacco MIGRATION.0301 024356 Information not available 09/20/2022 Are There Any Smokers In Your House? No MIGRATION.0301 807622 Information not available 09/20/2022 Do You Feel Stressed (tense, Restless, Nervous, Or Anxious, Or Unable To Sleep At Night)? [id number] MIGRATION.0301 315664 Information not available 09/20/2022 Do You Use Any Illicit Or Recreational Drugs? Yes MIGRATION.0301 229877 Information not available 09/20/2022 Do You Use Sunscreen Routinely? Yes MIGRATION.0301 034287 Information not available 09/20/2022 Has Tobacco Cessation Counseling Been Provided? No MIGRATION.0301 359678 Information not available 09/20/2022 Have You Recently Traveled Abroad? No MIGRATION.0301 951387 Information not available 09/20/2022 Have You Used IV Drugs? No Information not available 07/09/2024 Do You Have Any Dietary Restrictions? No MIGRATION.0301 296614 Information not available 09/20/2022 Do You Or Have You Ever Used Any Other Forms Of Tobacco Or Nicotine? No MIGRATION.0301 723998 Information not available 09/20/2022 Sex: Female Functional Status Question Answer Note LastModified by Organizat ion Details LastModified Time Do you have difficulty walking or climbing stairs? Yes MIGRATION.[id number] 026 Information not available 09/20/2022 Do you have transportation difficulties? No MIGRATION.3174279 026 Information not available 09/20/2022 Are you able to walk? YESASSIST larrye MIGRATION.0270743 026 Information not available 09/20/2022 Do you have difficulty doing errands alone? No MIGRATION.7676920 026 Information not available 09/20/2022 Are you able to care for yourself? Yes MIGRATION.9234522 026 Information not available 09/20/2022 Do you have difficulty dressing or bathing? No MIGRATION.9039598 026 Information not available 09/20/2022 What is your exercise level? Occasional MIGRATION.5573975 026 Information not available 09/20/2022 Mental Status Question Answer Note LastModified by Organizat ion Details LastModified Time Do you have difficulty concentrating, remembering or making decisions? No MIGRATION.[id number] 6 Information not available 09/20/2022 Family History Relationship Description Onset Age of this Age Resolved Age Notes LastModified by Organization Details LastModified Time Mother Hypertensive disorder MIGRATION.505 [id number] Not available 09/20/2022 04:43:16 Mother Alzheimer's disease [email or web address] Not available 01/07 13:55:50 Father Diabetes mellitus MIGRATION.370 [id number] Not available 09/20/2022 04:43:16 Father Malignant tumor of pancreas [email or web address] Not available 01/07 13:55:50 Son Hypercholest erolemia MIGRATION.070 [id number] Not available 09/20/2022 04:43:16 Medical History Condition Response NERVE DISEASE N BLINDNESS N RHEUMATIC FEVER N KIDNEY STONES N BLADDER PROBLEMS N MRSA N OTHER # 1 N POLIO N LUNG DISEASE/DISORDER N HISTORY OF DRUG ABUSE N RADIATION / CHEMOTHERAPY N COPD N Other # 2 N BLOOD DISEASES N EAR OR HEARING PROBLEMS N MUMPS N DEPRESSION (INCLUDING POST ) N BOWEL PROBLEMS N STROKE/TIA N ULCERS N BENIGN PROSTATIC HYPERPLASIA N MEASLES N HYPOTENSION N MYOCARDIAL INFARCTION N OBESITY N GERD/NAUSEA N ANEURYSM N URINARY/BLADDER/KIDNEY PROBLEMS N CORONARY ARTERY DISEASE (CAD) N ADDICTION CONCERNS N Impotence N ENDOMETRIOSIS N USE OF BLOOD THINNERS N SKIN PROBLEMS Y GASTROINTESTINAL DISORDER N PERIPHERAL VASCULAR DISEASE N MUSCLE,JOINT OR BONE PROBLEMS N GASTROINTESTINAL BLEEDING N BLOOD CLOTS N ASTHMA N CATARACTS N ERECTILE DYSFUNCTION N VARICOSITIES N GI PROBLEMS N Low Testosterone N INFERTILITY N AIDS/HIV N CHEMOTHERAPY / RADIATION N LIVER DISEASE N MALE HYPOGONADISM N HYPERTENSION Y Deficiency N TOURETTE'S N ANXIETY DISORDER N BLOOD TRANSFUSION N ANEMIA/BLOOD DISORDER N CHRONIC EAR INFECTIONS N BRONCHITIS N TUBERCULOSIS N GLAUCOMA N FOOT PROBLEM N DIVERTICULITIS N SLEEP APNEA N CHICKENPOX N INFECTIOUS DISEASE N PROSTATE N HEART ARRHYTHMIA N INSOMNIA N HIGH CHOLESTEROL / HYPERLIPIDEMIA Y EYE PROBLEMS N HYPERTHYROIDISM N EDEMA N CHRONIC PAIN SYNDROME N HYPOTHYROIDISM N CAROTID BLOCKAGE N CONSTIPATION N BACK / NECK PROBLEMS N HAVE YOU BEEN HOSPITALIZ[facility] OR [facility] IN THE PAST YEAR ? N ATHEROSCLEROSIS N BREAST PROBLEMS N DIALYSIS N ECZEMA N OSTEOPOROSIS N ARTHRITIS N APPENDICITIS N DIABETES, TYPE Y BAD TEETH N ENT N HEARTBURN / REFLUX N AUTISM SPECTRUM DISORDER (ASD) N HEPATITIS / LIVER DISEASE N GOUT N SLEEP DISORDER N ALZHEIMER'S DISEASE N Brain Problems N DEMENTIA N HERPES N SEIZURES/EPILEPSY N HEADACHES/MIGRAINES N VASCULAR DISEASE N PACEMAKER N Blood Disorder N DIZZINESS N HEART DISEASE/HEART PROBLEMS N KIDNEY DISEASE N MULTIPLE SCLEROSIS N CANCER: SPECIFY N CARDIAC ARRHYTHMIA N ATRIAL FIBRILLATION N Gall Stones N PULMONARY EMBOLISM N AUTOIMMUNE DISEASE N Gynecological History Statement/Question Response Date of Last Pap Date of Last Mammogram 03/29/2022 Date of Last Colonoscopy Most Recent Bone Density 08/18/2011 Obstetrics History GPAL:G 0 P 0 0 0 0 Immunizations Vaccine Type Date Status Note Provider Nam e and Address Organization Details Recorded Time COVID-19, mRNA, LNP-S, PF, 100 mcg/0.5mL dose or 50 mcg/0.25mL dose 2 completed Not Available [facility] 08/02/2023 13:35:35 COVID-19, mRNA, LNP-S, PF, 100 mcg/0.5mL dose or 50 mcg/0.25mL dose 1 completed Not Available [facility] 08/02/2023 13:35:35 COVID-19, mRNA, LNP-S, PF, 100 mcg/0.5mL dose or 50 mcg/0.25mL dose 1 completed Not Available [facility] 08/02/2023 13:35:35 COVID-19, mRNA, LNP-S, PF, 100 mcg/0.5mL dose or 50 mcg/0.25mL dose 1 completed Not Available [facility] 08/02/2023 13:35:35 Influenza, high-dose, quadrivalent, PF 0 completed Not Available [facility] 08/02/2023 13:35:34 Influenza, high-dose, quadrivalent, PF 9 completed Not Available [facility] 08/02/2023 13:35:35 Influenza, high-dose, trivalent, PF 8 completed Not Available [employer] 08/02/2023 13:35:35 Influenza, high-dose, trivalent, PF 7 completed Not Available [employer] 08/02/2023 13:35:35 Influenza, high-dose, trivalent, PF 6 completed Not Available [facility] 08/02/2023 13:35:35 Influenza, split virus, trivalent, preservative 2 completed Not Available [facility] 08/02/2023 13:35:35 Influenza, high-dose, quadrivalent, PF 1 completed Not Available [facility] 08/02/2023 13:35:35 Influenza, high-dose, trivalent, PF 5 completed Not Available [facility] 08/02/2023 13:35:35 influenza, unspecified formulation 4 completed Not Available [facility] 08/02/2023 13:35:35 zoster live 4 completed Not Available [facility] 08/02/2023 13:35:35 pneumococcal polysaccharide PPV23 5 completed Not Available [facility] 08/02/2023 13:35:35 Pneumococcal conjugate PCV 13 5 completed Not Available [facility] 08/02/2023 13:35:35 Past Encounters Encounter ID Performer Location Encounter Start Date Encounter Closed Date Diagnosis/Indication Diagnosis SNOMED-CT Code Diagnosis ICD10 Code Diagnosis Note [id number] Liat Donaldson MD [facility] Internal Med [facility] [address] [place] [address] 11/26/2020 00:00:00 12/12/2020 18:18:12 [id number] [facility] [facility] [place] [address] [place] [address] [place] [address] 01/04/2021 00:00:00 01/15/2021 17:11:26 [id number] [facility] [place] [address] [place] [address] [place] [address] 05/03/2021 00:00:00 05/03/2021 22:17:03 [id number] Liat Donaldson MD [facility] [place] [place] Internal Med [place] [address] [place] [address] [address] 10/11/2021 00:00:00 10/11/2021 22:17:41 [id number] Liat Donaldson MD [facility] Internal Med [place] [address] [place] [address] y , [place] [address] 02/14/2022 00:00:00 02/14/2022 22:30:04 [id number] Liat Donaldson MD [facility] Internal Med [place] [address] [place] [address] y , [place] [address] 06/06/2022 00:00:00 06/06/2022 22:37:23 [id number] Liat Donaldson MD [facility] Internal Med [place] [address] [place] [address] y , [place] [address] 10/10/2022 11:26:40 10/10/2022 12:38:23 Sleep disorder 40437255 G47.9 Dyslipidemia 081913478 E 78.5 Essential hypertension 44694029 I10 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 [id number] Liat Donaldson MD [facility] Internal Med [place] [address] [place] [address] y , [place] [address] 01/30/2023 10:37:09 01/30/2023 11:34:39 Anxiety 13990241 F41.9 Ankylosing spondylitis 7807048 M45.0 Chronic pa inful neuropathy due to diabetes mellitus 268591573 E11.40 Dyslipidemia 944582478 E 78.5 Essential hypertension 13658913 I10 [id number] Gilberto Mercedes MD [facility] [place] [place] [address] [address] 01/31/2023 13:48:13 01/31/2023 14:58:52 Obstructive sleep apnea syndrome 98658693 G47.33 [id number] Gilberto Mercedes MD [facility] [place] [place] [address] [address] 03/22/2023 15:12:16 03/22/2023 20:43:58 Obstructive sleep apnea syndrome 96838030 G47.33 [id number] Gilberto Mercedes [facility] [address] [place] [address] 05/09/2023 13:57:06 05/09/2023 14:50:10 Obstructive sleep apnea syndrome 70063064 G47.33 [id number] Liat Donaldson MD [facility] [address] [facility] [address], [place] [address] 06/21/2023 15:10:53 06/21/2023 16:45:16 Essential hypertension 64176609 I10 Dyslipidemia 882260301 E 78.5 Chronic pa inful neuropathy due to diabetes mellitus 872894867 E11.40 Ankylosing spondylitis 1886586 M45.0 Urinary incontinence 165 985592 R32 [id number] Gilberto Mercedes [facility] [address] [place] [address] 07/09/2023 13:53:28 07/10/2023 08:43:11 Obstructive sleep apnea syndrome 55720587 G47.33 [id number] Gilberto Mercedes [facility] [address] [place] [address] 10/08/2023 13:50:46 10/09/2023 08:34:41 Obstructive sleep apnea syndrome 01134596 G47.33 [id number] Gilberto Mercedes MD [facility] [address] [place] [address] 01/08/2024 13:51:13 01/09/2024 08:58:46 Obstructive sleep apnea syndrome 69319105 G47.33 [id number] Gilberto Mercedes [facility] [address] [place] [address] 04/08/2024 13:57:07 04/09/2024 15:48:43 Obstructive sleep apnea syndrome 54133585 G47.33 [id number] Gilberto Mercedes [facility] [address] [place] [address] 07/09/2024 13:56:45 07/09/2024 15:37:17 Obstructive sleep apnea syndrome 78790807 G47.33 [id number] Gilberto Mercedes MD [facility]mon[facility] [address] [address] 09/15/2024 10:26:56 09/15/2024 11:31:32 Obstructive sleep apnea syndrome 82906748 G47.33 Health Concerns Section Related Observation LastModified by Organization Detai ls LastModified Time None Recorded Concern Status LastModified by Organization Details LastModified Time None Recorded Advance Directives Directive Y: Payers Encounter Date Sequence Insurance Name Policy Number Policy Panda Covered Member ID Panda Member ID Guarantor Name 10/08/2023 1 [place] Valeria N Ladd [id number] Valeria Sierra Ladd 10/08/2023 2 [place] 106 Sebastian Ladd [id number] Valeria Sierra Ladd 01/08/2024 1 [place] Valeria N Ladd [id number] Valeria Sierra Ladd 01/08/2024 2 [place] 106 Sebastian Ladd [id number] Valeria Sierra Ladd 04/08/2024 1 [place] Valeria N Ladd [id number] Valeria Sierra Ladd 04/08/2024 2 [place] 106 Sebastian Ayana Ladd [id number] Valeria Sierra Ladd 07/09/2024 1 [place] Valeria N Ladd [id number] Valeria Sierra Ladd 07/09/2024 2 [place] 106 Sebastian Ladd [id number] Valeria Sierra Ladd 09/15/2024 1 [place] Valeria N Ladd [id number] Valeria Sierra Ladd 09/15/2024 2 [place] 106 Sebastian Piña Lidia [id number] Valeria Ladd Notes Date Note Type Note Provider Name and Address Organization Details Recorded Time 10/08/2023 text/html Primary care/Ref erring provider: Liat Donaldson MD During the [facility] home sleep study on 11/29/22, AHI = 33. At home since 07/09/23, the patient uses a [employer] AirSense 11 autoset unit with heated humidification. The patient does not need the ramp to start low and go up slowly on the pressure anymore. There is some xerostomia in a.m. There is no hose/mask condensation with water. The patient wears a [employer] medium AirFit F30i full face mask with chin strap. There is no claustrophobia, no nostril/nose bridge irritation, no facial rash, no facial numbness, no nosebleeding. The patient feels more refreshed upon waking and daytime alertness is improved. Energy levels are sustained until early afternoon, around 2 pm. At home, the patient sleeps from 12 am to 9 am and wakes up without an alarm. Snoring: moderate, since .Snorting: yesChoking: noCoughing: noGasping: noGagging: noSighing: noWitnessed apnea: yesTwitching or jerking of leg(s), arm(s), body, head: noTeeth grinding: noTeeth clenching: noSleeptalking: noSleepwalking: noSleep crying: noBedwetting: noTongue/lip/gum/cheek biting: noSleeping with open mouth: yesSleep paralysis: noHypnagogic hallucinations: noHypnopompic hallucinations: noVivid dreams: yesDifficulty with sleep onset: noDifficulty with sleep maintenance: yesSleep interruptions: nocturia x 2Patient wakes up with: fatigue, xerostomiaDaytime cataplexy: noMorning hypersomnolence: noAfternoon hypersomnolence: yesCaffeine sources in diet: coffee 3 cups per day, tea 2.5 cups per day, soda 1 can per day, chocolate 1 candy per week Associated medical and psychiatric conditions:Congestive heart failure: noCoronary artery disease: noMyocardial infarction: noHypertension: yesStroke: noBronchial asthma: noChronic obstructive pulmonary disease: noDepression: yesBipolar disorder: noAnxiety: noPanic disorder: noPosttraumatic stress disorder: noAttention deficit and hyperactivity disorder: noObsessive Compulsive disorder: noSchizophrenia: noSchizoaffective disorder: noPersonality disorder: noChronic analgesic use: tramadolChronic sedative/hypnotic use: no EPWORTH SLEEPINESS SCALE (ESS) CHANCE OF DOZING SCORE0 = would never doze1 = slight chance of dozing2 = moderate chance of dozing3 = high chance of dozing SITUATION AND CHANCE OF DOZINGSitting and reading - 1Watching television - 2Sitting inactive in a public place (e.g. a theater or meeting) - 3As a passenger in a car for an hour without a break - 2Lying down to rest in the afternoon when circumstances permit - 3Sitting and talking to someone - 1Sitting quietly after lunch without alcohol - 1In a car, while stopped for a few minutes in the traffic - 0TOTAL SCORE 13Subjectively, patient has moderate chance of dozing. Gilberto Mercedes MD [address] [place] [address], [phone], [facility] 10/08/2023 14:38:08 01/08/2024 text/html Primary care/Ref erring provider: Liat Donaldson MD CC: When I open my mouth, I feel that the CPAP is so strong. During the [facility] home sleep study on 11/29/22, AHI = 33. At home since 10/08/23, the patient uses a [employer] AirSense 11 autoset unit with heated humidification. The patient does not need the ramp to start low and go up slowly on the pressure anymore. There is some xerostomia in a.m. There is no hose/mask condensation with water. The patient wears a ResMed medium AirFit F30i full face mask with chin strap. There is no claustrophobia, no nostril/nose bridge irritation, no facial rash, no facial numbness, no nosebleeding. The patient feels more refreshed upon waking and daytime alertness is improved. Energy levels are sustained until early afternoon, around 2 pm. At home, the patient sleeps from 12 am to 9 am and wakes up without an alarm. Snoring: moderate, since .Snorting: yesChoking: noCoughing: noGasping: noGagging: noSighing: noWitnessed apnea: yesTwitching or jerking of leg(s), arm(s), body, head: noTeeth grinding: noTeeth clenching: noSleeptalking: noSleepwalking: noSleep crying: noBedwetting: noTongue/lip/gum/cheek biting: noSleeping with open mouth: yesSleep paralysis: noHypnagogic hallucinations: noHypnopompic hallucinations: noVivid dreams: yesDifficulty with sleep onset: noDifficulty with sleep maintenance: yesSleep interruptions: nocturia x 2Patient wakes up with: fatigue, xerostomiaDaytime cataplexy: noMorning hypersomnolence: noAfternoon hypersomnolence: yesCaffeine sources in diet: coffee 3 cups per day, tea 2.5 cups per day, soda 1 can per day, chocolate 1 candy per week Associated medical and psychiatric conditions:Congestive heart failure: noCoronary artery disease: noMyocardial infarction: noHypertension: yesStroke: noBronchial asthma: noChronic obstructive pulmonary disease: noDepression: yesBipolar disorder: noAnxiety: noPanic disorder: noPosttraumatic stress disorder: noAttention deficit and hyperactivity disorder: noObsessive Compulsive disorder: noSchizophrenia: noSchizoaffective disorder: noPersonality disorder: noChronic analgesic use: tramadolChronic sedative/hypnotic use: no EPWORTH SLEEPINESS SCALE (ESS) CHANCE OF DOZING SCORE0 = would never doze1 = slight chance of dozing2 = moderate chance of dozing3 = high chance of dozing SITUATION AND CHANCE OF DOZINGSitting and reading - 1Watching television - 1Sitting inactive in a public place (e.g. a theater or meeting) - 2As a passenger in a car for an hour without a break - 2Lying down to rest in the afternoon when circumstances permit - 3Sitting and talking to someone - 0Sitting quietly after lunch without alcohol - 0In a car, while stopped for a few minutes in the traffic - 0TOTAL SCORE 9Subjectively, patient has moderate chance of dozing. Gilberto Mercedes MD [address] [facility], [facility] [address], [place], [address], [place] - [facility] 01/08/2024 14:39:22 04/08/2024 text/html Primary care/Ref erring provider: Liat Donaldson MD CC: When I open my mouth, I feel that the CPAP is so strong. During the [facility] home sleep study on 11/29/22, AHI = 33. At home since 10/08/23, the patient uses a ResMed AirSense 11 autoset unit with heated humidification. The patient does not need the ramp to start low and go up slowly on the pressure anymore. There is some xerostomia in a.m. There is no hose/mask condensation with water. The patient wears a ResMed medium AirFit F30i full face mask with chin strap. There is no claustrophobia, no nostril/nose bridge irritation, no facial rash, no facial numbness, no nosebleeding. The patient feels more refreshed upon waking and daytime alertness is improved. Energy levels are sustained until early afternoon, around 2 pm. At home, the patient sleeps from 12 am to 9 am and wakes up without an alarm. Snoring: moderate, since .Snorting: yesChoking: noCoughing: noGasping: noGagging: noSighing: noWitnessed apnea: yesTwitching or jerking of leg(s), arm(s), body, head: noTeeth grinding: noTeeth clenching: noSleeptalking: noSleepwalking: noSleep crying: noBedwetting: noTongue/lip/gum/cheek biting: noSleeping with open mouth: yesSleep paralysis: noHypnagogic hallucinations: noHypnopompic hallucinations: noVivid dreams: yesDifficulty with sleep onset: noDifficulty with sleep maintenance: yesSleep interruptions: nocturia x 2Patient wakes up with: fatigue, xerostomiaDaytime cataplexy: noMorning hypersomnolence: noAfternoon hypersomnolence: yesCaffeine sources in diet: coffee 3 cups per day, tea 2.5 cups per day, soda 1 can per day, chocolate 1 candy per week Associated medical and psychiatric conditions:Congestive heart failure: noCoronary artery disease: noMyocardial infarction: noHypertension: yesStroke: noBronchial asthma: noChronic obstructive pulmonary disease: noDepression: yesBipolar disorder: noAnxiety: noPanic disorder: noPosttraumatic stress disorder: noAttention deficit and hyperactivity disorder: noObsessive Compulsive disorder: noSchizophrenia: noSchizoaffective disorder: noPersonality disorder: noChronic analgesic use: tramadolChronic sedative/hypnotic use: no EPWORTH SLEEPINESS SCALE (ESS) CHANCE OF DOZING SCORE0 = would never doze1 = slight chance of dozing2 = moderate chance of dozing3 = high chance of dozing SITUATION AND CHANCE OF DOZINGSitting and reading - 1Watching television - 1Sitting inactive in a public place (e.g. a theater or meeting) - 1As a passenger in a car for an hour without a break - 2Lying down to rest in the afternoon when circumstances permit - 3Sitting and talking to someone - 0Sitting quietly after lunch without alcohol - 1In a car, while stopped for a few minutes in the traffic - 0TOTAL SCORE 9Subjectively, patient has moderate chance of dozing. Gilberto Mercedes MD [address] [place] [address], [id number], [facility] 04/08/2024 14:44:54 07/09/2024 text/html Primary care/Ref erring provider: Liat Donaldson MD During the [facility] home sleep study on 11/29/22, AHI = 33. At home since 04/08/24, the patient uses a ResMed AirSense 11 autoset unit with heated humidification. The patient does not need the ramp to start low and go up slowly on the pressure anymore. There is some xerostomia in a.m. There is no hose/mask condensation with water. The patient wears a ResMed medium AirFit F30i full face mask with chin strap. There is no claustrophobia, no nostril/nose bridge irritation, no facial rash, no facial numbness, no nosebleeding. The patient feels more refreshed upon waking and daytime alertness is improved. Energy levels are sustained until early afternoon, around 2 pm. At home, the patient sleeps from 12 am to 9 am and wakes up without an alarm. Snoring: moderate, since .Snorting: yesChoking: noCoughing: noGasping: noGagging: noSighing: noWitnessed apnea: yesTwitching or jerking of leg(s), arm(s), body, head: noTeeth grinding: noTeeth clenching: noSleeptalking: noSleepwalking: noSleep crying: noBedwetting: noTongue/lip/gum/cheek biting: noSleeping with open mouth: yesSleep paralysis: noHypnagogic hallucinations: noHypnopompic hallucinations: noVivid dreams: yesDifficulty with sleep onset: noDifficulty with sleep maintenance: yesSleep interruptions: nocturia x 2Patient wakes up with: fatigue, xerostomiaDaytime cataplexy: noMorning hypersomnolence: noAfternoon hypersomnolence: yesCaffeine sources in diet: coffee 3 cups per day, tea 2.5 cups per day, soda 1 can per day, chocolate 1 candy per week Associated medical and psychiatric conditions:Congestive heart failure: noCoronary artery disease: noMyocardial infarction: noHypertension: yesStroke: noBronchial asthma: noChronic obstructive pulmonary disease: noDepression: yesBipolar disorder: noAnxiety: noPanic disorder: noPosttraumatic stress disorder: noAttention deficit and hyperactivity disorder: noObsessive Compulsive disorder: noSchizophrenia: noSchizoaffective disorder: noPersonality disorder: noChronic analgesic use: tramadolChronic sedative/hypnotic use: no EPWORTH SLEEPINESS SCALE (ESS) CHANCE OF DOZING SCORE0 = would never doze1 = slight chance of dozing2 = moderate chance of dozing3 = high chance of dozing SITUATION AND CHANCE OF DOZINGSitting and reading - 1Watching television - 1Sitting inactive in a public place (e.g. a theater or meeting) - 1As a passenger in a car for an hour without a break - 2Lying down to rest in the afternoon when circumstances permit - 2Sitting and talking to someone - 0Sitting quietly after lunch without alcohol - 0In a car, while stopped for a few minutes in the traffic - 1TOTAL SCORE 8Subjectively, patient has a slight chance of dozing. Gilberto Mercedes MD [address] [place] [address] [address], [place], [address], [place] - [facility] 07/09/2024 14:42:07 09/15/2024 text/html Primary care/Ref erring provider: Liat Donaldson MD; Jaqueline Pollack MD During the [facility] home sleep study on 11/29/22, AHI = 33. At home since 07/09/24, the patient uses a ResMed AirSense 11 autoset unit with heated humidification. The patient does not need the ramp to start low and go up slowly on the pressure anymore. There is some xerostomia in a.m. There is no hose/mask condensation with water. The patient wears a ResMed medium AirFit F30i full face mask with chin strap. There is no claustrophobia, no nostril/nose bridge irritation, no facial rash, no facial numbness, no nosebleeding. The patient feels more refreshed upon waking and daytime alertness is improved. Energy levels are sustained until early afternoon, around 2 pm. At home, the patient sleeps from 12 am to 9 am and wakes up without an alarm. Snoring: moderate, since .Snorting: yesChoking: noCoughing: noGasping: noGagging: noSighing: noWitnessed apnea: yesTwitching or jerking of leg(s), arm(s), body, head: noTeeth grinding: noTeeth clenching: noSleeptalking: noSleepwalking: noSleep crying: noBedwetting: noTongue/lip/gum/cheek biting: noSleeping with open mouth: yesSleep paralysis: noHypnagogic hallucinations: noHypnopompic hallucinations: noVivid dreams: yesDifficulty with sleep onset: noDifficulty with sleep maintenance: yesSleep interruptions: nocturia x 2Patient wakes up with: fatigue, xerostomiaDaytime cataplexy: noMorning hypersomnolence: noAfternoon hypersomnolence: yesCaffeine sources in diet: coffee 3 cups per day, tea 2.5 cups per day, soda 1 can per day, chocolate 1 candy per week Associated medical and psychiatric conditions:Congestive heart failure: noCoronary artery disease: noMyocardial infarction: noHypertension: yesStroke: noBronchial asthma: noChronic obstructive pulmonary disease: noDepression: yesBipolar disorder: noAnxiety: noPanic disorder: noPosttraumatic stress disorder: noAttention deficit and hyperactivity disorder: noObsessive Compulsive disorder: noSchizophrenia: noSchizoaffective disorder: noPersonality disorder: noChronic analgesic use: tramadolChronic sedative/hypnotic use: no EPWORTH SLEEPINESS SCALE (ESS) CHANCE OF DOZING SCORE0 = would never doze1 = slight chance of dozing2 = moderate chance of dozing3 = high chance of dozing SITUATION AND CHANCE OF DOZINGSitting and reading - 1Watching television - 1Sitting inactive in a public place (e.g. a theater or meeting) - 1As a passenger in a car for an hour without a break - 2Lying down to rest in the afternoon when circumstances permit - 3Sitting and talking to someone - 0Sitting quietly after lunch without alcohol - 2In a car, while stopped for a few minutes in the traffic - 0TOTAL SCORE 10Subjectively, patient has a moderate chance of dozing. Gilberto Mercedes MD [address] [place] [address], [place] [address], [place], [address], [facility] 09/15/2024 11:30:15 OBGyn Episode No OBEpisode recorded.
--- OUTSIDE RECORDS SUMMARY | 2024-11-20 10:43 | XMS_ITS | Referral Summary ---
Author Organization [address] Address [address] [place] [id number] Care Team Providers Care Extension Service Supervisor Name Role Phone Liat Donaldson MD Primary Care Provider [phone] Encounters Date Type Department Care Team Description 11/07/2024 Orders Only [facility] Diabetes and Endocrinology [address] [place] [id number] Brett Stone MD 10/13/2024 1:00 PM CDT Office Visit [facility] [id number] [place] [phone] Jaqueline Pollack MD Type 1 diabetes mellitus with hyperglycemia (HCC) (Primary Dx) 10/03/2024 2:12 PM CDT - 10/03/2024 11:59 PM CDT Hospital Encounter [address] [id number] 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) Discharge Disposition: Discharge to home or self care 10/03/2024 1:45 PM CDT Lab [facility] Outpatient Lab at [address] [phone] 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) (Primary Dx); Hypertension associated with type 1 diabetes mellitus (HCC) from Last 3 Months Allergies Active Allergy Reactions Criticality Noted Date Comments Cefdinir Unknown 06/26/2008 Ciprofloxacin Nausea only Medium 05/02/2013 Medications omega-3 fatty acids-fish oil 340-1,000 mg capsule take one by oral route twice every day 0 3 Active multivitamin tablet tablet take 1 tablet by oral route every day with food 0 3 Active cinnamon bark (CINNAMON) 500 mg capsule take BID every day 0 0 4 Active biotin 1 mg capsule take one by oral route every other day [address] (CYMBALTA) 60 mg capsule take 1 capsule by oral route once a day 0 0 0 Active losartan-hydroCHL OROthiazide (HYZAAR) 50-12.5 mg per tablet Take 1 tablet by mouth daily 9 Active solifenacin (VESIcare) 5 mg tablet solifenacin 5 mg tablet Active turmeric 400 mg capsule Take 1 capsule by mouth daily Active alcohol swabs pads, medicated Use as directed 300 each 1 0 Active celecoxib (CeleBREX) 200 mg capsule celecoxib 200 mg capsule Active traMADoL (ULTRAM) 50 mg tablet Take 1 tablet (50 mg total) by mouth 3 (three) times a day 1 Active acetaminophen (TYLENOL) 500 mg tablet every 6 hours Active rosuvastatin (CRESTOR) 10 mg tablet 1 Active golimumab (SIMPONI ARIA IV) Infuse into a venous catheter Active Dexcom G6 Sensor deviceIndications :Type 1 diabetes mellitus with hyperglycemia (HCC) CHANGE EVERY 10 DAYS 3 each 1 1 Active blood-glucose transmitter (Dexcom G6 Transmitter) deviceIndications :Type 1 diabetes mellitus with hyperglycemia (HCC) DIRECTED 1 each 1 1 Active ciclopirox (LOPROX) 0.77 % cream Active nitrofurantoin monohydrate (MACROBID) 100 mg capsule 3 Active sulfaSALAzine EN (AZULFIDINE EN) 500 mg EC tablet Take 2 tablets (1,000 mg total) by mouth 2 (two) times a day 3 Active buPROPion XL (WELLBUTRIN XL) 150 mg 24 hr tablet 3 Active triamcinolone (KENALOG) 0.1 % cream 3 Active insulin lispro (HumaLOG) 100 unit/mL vial for injection Use via insulin pump up to 70 units daily 60 mL 2 4 Active insulin aspart (NovoLOG) 100 unit/mL vial for injection Use via insulin pump up to 70 units daily 60 mL 2 4 Active mupirocin (BACTROBAN) 2 % ointment 4 Active gabapentin (NEURONTIN) 300 mg capsuleIndication s:Chronic painful diabetic neuropathy (HCC) Take 1 capsule (300 mg total) by mouth every morning AND 1 capsule (300 mg total) with lunch AND 2 capsules (600 mg total) nightly. 360 capsule 3 4 025 Active insulin pump cart,automated,BT (Omnipod 5 G6 Pods, Gen 5,) cartridge CHANGE POD EVERY 3 DAYS 30 each 3 4 Active semaglutide 0.25 mg or 0.5 mg (2 mg/3 mL) pen injector injection Take 0.25 mg weekly x 4 wks and then continue with 0.5 mg weekly 3 mL 1 4 Active metFORMIN (GLUCOPHAGE) 850 mg tablet TAKE 1 TABLET TWICE DAILY WITH MEALS DIRECTED 180 tablet 2 4 Active Active Problems Problem Noted Date Diagnosed Date Chronic painful diabetic neuropathy 10/30/2023 Assessment & Plan (10/30/2023 10:06 AM CDT): Chronic problem. Currently taking Gabapentin 300mg qam & noon, 600mg qhs. Reviewed foot care; needs to lotion daily. Aware to check feet nightly, not to go barefoot. Class 2 severe obesity due t o excess calories with serious comorbidity and body mass index (BMI) of 37.0 to 37.9 in adult 09/19/2022 Assessment & Plan (09/19/2022 10:36 AM PLATE FITTER): Discussed healthy diet and importance of regular physical activity (20- 30min/day, 150min/wk). Difficulty w/exercise d/t chronic pain (ankylosing spondylitis). Right foot drop 03/31/2020 Assessment & Plan (03/31/2021 11:06 AM CDT): Patient has mild ongoing right dorsiflexor weakness associated with prior right lumbar radiculopathy. No interval changes are seen in her examination status. Assessment & Plan (03/31/2020 10:29 AM CDT): Patient developed a right footdrop associated with right lumbar radiculopathy earlier this year. She has undergone a lumbar decompressive surgery with modest improvement in her right foot drop. She continues with physical therapy prescribed by her treating neurosurgeon in [place]. Further evaluation and management regarding the footdrop will be deferred to her treating neurosurgeon. Lumbar radiculopathy, right 03/31/2020 Assessment & Plan (03/31/2020 10:30 AM CDT): Patient has a history of right lower extremity radiculopathy with associated foot drop for which she underwent recent lumbar laminectomy. Postoperatively she had resolution of her low back and radicular symptoms but still has a residual foot drop for which she is undergoing therapy at this time. Hyperlipidemia due to type 1 diabetes mellitus 1 Assessment & Plan (06/30/2024 3:13 PM PLATE FITTER): Chronic, stable Continue rosuvastatin 10 mg daily. Assessment & Plan (04/02/2024 3:35 PM CDT): Chronic, stable. Continue current medication including Hyzaar Assessment & Plan (10/30/2023 10:04 AM CDT): Chronic problem, well controlled on current Rosuvastatin 10mg. Last lipid panel: 08/22/23 LDL=67, TG=57. No changes at this time. Assessment & Plan (08/21/2023 1:32 PM PLATE FITTER): Chronic, well controlled Update Lipid profile Continue Simvastatin Assessment & Plan (04/10/2023 10:12 AM CDT): Chronic problem, well controlled on current Rosuvastatin 10mg. Last lipid panel: 08/04/22 LDL=66, TG=49. No changes at this time. Assessment & Plan (01/16/2023 3:00 PM CDT): Chronic, well controlled Low fat Low cholesterol diet Exercise Continue statin therapy wit Rosuvastatin Assessment & Plan (09/19/2022 10:47 AM PLATE FITTER): Chronic problem, well controlled on current Rosuvastatin 10mg. Last lipid panel: 08/04/22 LDL=66, TG=49. No changes at this time. Assessment & Plan (07/11/2022 4:02 PM PLATE FITTER): Chronic, well controlled Low fat Low cholesterol diet Exercise Continue statin therapy with Rosuvastatin Assessment & Plan (04/06/2022 11:18 AM CDT): Chronic problem. On statin therapy, no changes. Assessment & Plan (01/12/2022 4:08 PM CDT): Chronic, well controlled Low fat Low cholesterol diet Exercise Continue statin therapy Assessment & Plan (10/20/2021 1:09 PM CDT): Chronic problem. On statin therapy, no changes. Assessment & Plan (07/28/2021 3:56 PM PLATE FITTER): Chronic problem. On statin therapy, no changes. Update lipid panel. Assessment & Plan (03/24/2021 4:44 PM CDT): Diet and exercise Continue with rosuvastatin Assessment & Plan (12/23/2020 2:56 PM CDT): Goal of treatment , LDL cholesterol less than 100 ( less than 70 in patients with history of heart attacks and / or strokes ) NonHDL cholesterol ( total cholesterol minus HDL cholesterol ) goal less than 130 ( less than 100 in patients with history of heart attacks and / or strokes ) Low cholesterol, low fat diet was discussed and advised. Daily exercise On statin therapy With Crestor Assessment & Plan (09/21/2020 1:42 PM PLATE FITTER): Goal of treatment , LDL cholesterol less than 100 ( less than 70 in patients with history of heart attacks and / or strokes ) NonHDL cholesterol ( total cholesterol minus HDL cholesterol ) goal less than 130 ( less than 100 in patients with history of heart attacks and / or strokes ) Low cholesterol, low fat diet was discussed and advised. Daily exercise Assessment & Plan (06/10/2020 3:43 PM PLATE FITTER): Check lipid panel. Keep in consideration that she is not currently taking statin. Assessment & Plan (03/09/2020 12:29 PM CDT): Goal of treatment , LDL cholesterol less than 100 ( less than 70 in patients with history of heart attacks and / or strokes ) NonHDL cholesterol ( total cholesterol minus HDL cholesterol ) goal less than 130 ( less than 100 in patients with history of heart attacks and / or strokes ) Low cholesterol, low fat diet was discussed and advised. Daily exercise On statin therapy with Crestor Assessment & Plan (12/11/2019 3:33 PM CDT): Continue statin therapy Assessment & Plan (09/08/2019 9:40 AM PLATE FITTER): At goal on current medications. Continue statin therapy. Assessment & Plan (04/22/2019 12:27 PM CDT): Goal of treatment , LDL cholesterol less than 100 ( less than 70 in patients with history of heart attacks and / or strokes ) NonHDL cholesterol ( total cholesterol minus HDL cholesterol ) goal less than 130 ( less than 100 in patients with history of heart attacks and / or strokes ) Low cholesterol, low fat diet was discussed and advised. Daily exercise On statin therapy Insulin pump status 07/12/2017 Assessment & Plan (10/30/2023 10:42 AM CDT): No pump setting changes. Assessment & Plan (04/10/2023 10:15 AM CDT): No pump setting changes. Assessment & Plan (09/19/2022 10:31 AM PLATE FITTER): Omnipod insulin pump with Humalog BR 12a 0.3, 430a 0.7, 4p 0.80, 10p 0.7 CR 10 CF 40 Target 110 AIT 4 hrs Added basal rate: 9-1130a 0.9 Assessment & Plan (04/06/2022 11:50 AM CDT): No pump setting changes. Assessment & Plan (10/20/2021 1:09 PM CDT): No pump changes today. Assessment & Plan (07/28/2021 3:58 PM PLATE FITTER): Change settings to: BR 12a 0.5, 4a 0.8, 4p 0.85, 10p 0.9 CF 12a 35, 2a 25, 11p 35 (to lower recommended correction dose at HS) Assessment & Plan (03/09/2020 12:30 PM CDT): Have long acting , basal insulin ( e.g. Lantus, Levemir, NPH, ) and insulin syringes as back up in case of pump failure If you have to take your insulin pump off for more than 12 h, start taking basal insulin, every 24 h ( take 80 % of the 24 h insulin delivered to you via insulin pump as calculated based on your basal rates ) and inject meal time insulin by injections, calculating the same way you do with your pump bolus ( according with carb intake and blood sugar readings ) Assessment & Plan (12/11/2019 3:35 PM CDT): 1) Change the first basal rate at midnight to 0.6 2) from 430 am to 4 pm go to 0.95 3) from 4 pm to 10 pm go to 0.9 4) add new basal rate at 10 pm of 0.95 which will run until midnight Assessment & Plan (09/08/2019 8:16 PM PLATE FITTER): No change to current settings until assessed after using boluses correctly Assessment & Plan (04/22/2019 12:27 PM CDT): Have long acting , basal insulin ( e.g. Lantus, Levemir, NPH, ) and insulin syringes as back up in case of pump failure If you have to take your insulin pump off for more than 12 h, start taking basal insulin, every 24 h ( take 80 % of the 24 h insulin delivered to you via insulin pump as calculated based on your basal rates ) and inject meal time insulin by injections, calculating the same way you do with your pump bolus ( according with carb intake and blood sugar readings ) Assessment & Plan (01/10/2019 8:44 AM CDT): No change to settings. Will evaluate pattern after at least 2 weeks of bolusing appropriately and follow up with hardware trainer. Assessment & Plan (10/16/2018 10:13 AM CDT): No change to settings. Assessment & Plan (07/12/2017 3:39 PM PLATE FITTER): Have long acting , basal insulin ( e.g. Lantus, Levemir, NPH, ) and insulin syringes as back up in case of pump failure If you have to take your insulin pump off for more than 12 h, start taking basal insulin, every 24 h ( take 80 % of the 24 h insulin delivered to you via insulin pump as calculated based on your basal rates ) and inject meal time insulin by injections, calculating the same way you do with your pump bolus ( according with carb intake and blood sugar readings ) Type 1 diabetes mellitus with hyperglycemia 01/2014 Overview (10/16/2018): T1DM as evidenced by low c peptide 02/2018. A1c 7.1 without hypoglycemia, Doing well overall. Continue same settings. BG goals reviewed. Focus on diet and exercise Assessment & Plan (06/30/2024 3:13 PM PLATE FITTER): Chronic, stable with some hypoglycemia I made adjustments to her insulin pump as follows; Basals 12a 0.3 430a 0.7 9am 0.8 1130a 0.7 4p 0.7 12a 0.7 TG 110 IC 10 SF 40 AIT 4 H The patient is very upset about not been able to take the Ozempic anymore due to fail of coverage by her insurer. She feels that it has helped tremendously We gave her samples of Ozempic. She has been using 0.5 mg every other week, so she can take it a 0.25 mg weekly Assessment & Plan (04/02/2024 3:35 PM CDT): Chronic, stable Continue pump at current settings Would like to try GLP 1. prescription for Ozempic was sent Patient to let me know if her glucoses start going down so will adjust her pump settings Assessment & Plan (10/30/2023 10:51 AM CDT): Chronic problem. A1c at goal 5.3% wo hypoglycemia. No changes at this time. Discussed bolusing before eating & with snacks. Current medications: Humalog via Omnipod insulin pump BR 12a 0.3, 430a 0.7, 9am 0.9, 1130am 0.7, 4p 0.80, 10p 0.7 CR 10 CF 40 Target 110 AIT 4 hrs UTD on labs. Last DM eye exam 10/19/22 at [facility]. Scheduled for 11/01/23. Letter sent to get copy of report. Strive for regular exercise (30min most days) and diet (get at least 4-5 servings of fruit and veggies daily, avoid processed foods, increase lean protein intake and decrease carb portions as well as fruit juices, regular soda & desserts). Watch carbs and simple sugars. Check the blood sugar Dexcom. Check the feet daily for skin breakdown and infection. Assessment & Plan (08/21/2023 1:28 PM PLATE FITTER): Hba1c was Lab Results Component Value Date HGBA1C 6.0 08/21/2023 today, indicating adequate DM control Goal Hba1c under 7 and blood glucose level in the 120-160 range was explained Low carb diet and daily aerobic and /or resistant exercise were advised Prevention and treatment of hyypoglcyemia were discussed with the patient Blood glucose monitoring : CGM with DEXCOM Adjustment to medications: Continue pump at current settings. Continue metformin Assessment & Plan (04/10/2023 10:33 AM CDT): Chronic problem. A1c at goal 5.7% wo hypoglycemia. Current medications: Humalog via Omnipod insulin pump BR 12a 0.3, 430a 0.7, 9am 0.9, 1130am 0.7, 4p 0.80, 10p 0.7 CR 10 CF 40 Target 110 AIT 4 hrs UTD on labs. Last DM eye exam 10/19/22 at [facility]. Letter sent to get most recent report. Strive for regular exercise (30min most days) and diet (get at least 4-5 servings of fruit and veggies daily, avoid processed foods, increase lean protein intake and decrease carb portions as well as fruit juices, regular soda & desserts). Watch carbs and simple sugars. Check the blood sugar Dexcom. Check the feet daily for skin breakdown and infection. Assessment & Plan (01/16/2023 2:57 PM CDT): Hba1c was Lab Results Component Value Date HGBA1C 5.3 01/16/2023 today, indicating DM control Goal Hba1c and blood glucose explained Diet and exercise were advised Prevention and treatment of hyypoglcyemia were discussed with the patient Blood glucose monitoring : DEXCOM Adjustment to medications: Continue pump at current settings Assessment & Plan (09/19/2022 10:53 AM PLATE FITTER): Chronic problem, well controlled. Having postprandial increase after breakfast until after lunch. Discussed the need to strive for regular exercise (30min most days as she can tolerate) and diet (get at least 4-5 servings of fruit and veggies daily, avoid processed foods, increase lean protein intake and decrease carb portions as well as fruit juices, regular soda & desserts). Watch carbs and simple sugars. Check the feet daily for skin breakdown and infection. Has DM eye exam set for 10/19/[address] Paredes. Letter sent to get copy of results once seen. Will update MA/Cr today. Verified that she uses [facility]. Aware to check results/results letter in [facility]. Will contact by phone if needed. Omnipod insulin pump with Humalog BR 12a 0.3, 430a 0.7, Added basal rate: 9-1130a 0.9, 4p 0.80, 10p 0.7 CR 10 CF 40 Target 110 AIT 4 hrs Assessment & Plan (07/11/2022 4:01 PM PLATE FITTER): Hba1c was Lab Results Component Value Date HGBA1C 5.9 07/11/2022 today, indicating adequate DM control with frequent hypoglycemia Goal Hba1c and blood glucose explained Diet and exercise were advised Prevention and treatment of hyypoglcyemia were discussed with the patient Blood glucose monitoring : Dexcom Adjustment to medications: Pump settings adjusted, lowering basal rates and sensitivity factor as follows: BR 12a 0.3, 4a 07, 4p 0.80, 10p 0.7 CR 10 CF 40 Target 110 AIT 4 hrs Patient has the OP 5 and is waiting to finish her current pods, to start it Assessment & Plan (04/06/2022 11:52 AM CDT): Chronic problem, stable. Discussed possible pump adjustments needed as she loses weight. Also dicussed Omnipod 5 which she is interested in. Sent in prescriptions to [facility] pharmacy, and she will let us know if any issues. We reviewed how the integrated system works. Assessment & Plan (01/12/2022 4:08 PM CDT): Hba1c was Lab Results Component Value Date HGBA1C 6.4 01/12/2022 today, indicating adequate DM control Goal Hba1c and blood glucose explained Diet and exercise were advised Prevention and treatment of hyypoglcyemia were discussed with the patient Blood glucose monitoring : DEXCOM Adjustment to medications: Continue insulin pump at current settings Will try to have her upgrade to OmniPod 5 Assessment & Plan (10/20/2021 1:11 PM CDT): Chronic problem, overall stable per A1c. Slight downward trend in AM but she declines any pump changes at this time, feels settings are working well for her. Discussed Omnipod 5 when it becomes available. Rx for strips sent in, she does feel she needs to calibrate her dexcom fairly often. She prefers freestyle strips that go with her Omnipod, rx sent to pharmacy but if not covered she should check with her DME supplier ([employer]). Assessment & Plan (07/28/2021 3:57 PM PLATE FITTER): Chronic problem, not at goal with frequent hypoglycemia. Decrease BR pattern and CF per below. If persistent lows let us know so we can adjust further. Goal A1c closer to 6.5% w/o hypoglycemia. Update routine labs including CMP, lipid panel, TSH, MA/Cr. Assessment & Plan (03/24/2021 4:44 PM CDT): Hba1c was Lab Results Component Value Date HGBA1C 6.3 (A) 03/24/2021 today, indicating adequate. DM control Goal blood sugars in the 120-150 range , with Hb1c under 7.0 % was explained 1800 calorie, consistent carb diet recommended. No more than 30-45 grams of carbs per meal recommended, as well as avoiding high concentrated sweet drinks . 25-45 min daily exercise, combining both aerobic and resistance exercise recommended. The need to monitor blood glucose before meals and bedtime was discussed. Prevention and treatment of hyypoglcyemia discussed. Continue pump at current settings Continue CGM with Dexcom Assessment & Plan (12/23/2020 3:15 PM CDT): Hba1c was Lab Results Component Value Date HGBA1C 6.3 12/23/2020 today, indicating adequate DM control Goal blood sugars in the 120-150 range , with Hb1c under 7.0 % was explained 1800 calorie, consistent carb diet recommended. No more than 30-45 grams of carbs per meal recommended, as well as avoiding high concentrated sweet drinks . 25-45 min daily exercise, combining both aerobic and resistance exercise recommended. The need to monitor blood glucose before meals and bedtime was discussed. Prevention and treatment of hyypoglcyemia discussed. Continue pump at current settings. Pump setting : Basal rates: 12am 0.55 430 am 0.85 4pm 0.9 10pm 0.95 IC 10 ISF 25 AIT 4h BG target 110 n Assessment & Plan (09/21/2020 1:42 PM PLATE FITTER): Hba1c was Lab Results Component Value Date HGBA1C 6.0 09/21/2020 today, indicating adequate DM control Goal blood sugars in the 120-150 range , with Hb1c under 7.0 % was explained 1800 calorie, consistent carb diet recommended. No more than 30-45 grams of carbs per meal recommended, as well as avoiding high concentrated sweet drinks . 25-45 min daily exercise, combining both aerobic and resistance exercise recommended. The need to monitor blood glucose before meals and bedtime was discussed. Prevention and treatment of hyypoglcyemia discussed. \ Continue pump at current settings Assessment & Plan (06/10/2020 3:42 PM PLATE FITTER): A1c 6.3. BG pattern acceptable. No change to current settings. Will be eligible to upgrade to Dash/CGM when available. Assessment & Plan (03/09/2020 12:30 PM CDT): Hba1c was Lab Results Component Value Date HGBA1C 6.4 03/09/2020 today, indicating Adequate DM control 1800 calorie, consistent carb diet recommended. No more than 30-45 grams of carbs per meal recommended, as well as avoiding high concentrated sweet drinks . 25-45 min daily exercise, combining both aerobic and resistance exercise recommended. The need to monitor blood glucose before meals and bedtime was discussed. Prevention and treatment of hyypoglcyemia discussed. Insulin dose: Continue insulin pump at current settings Continue metformin Assessment & Plan (12/11/2019 3:35 PM CDT): BG elevated overnight and late evening, even without steroids. Will adjust basal settings for this. Provided instructions in writing and they will contact [facility] if any issues being able to do this. Advised pump upload in 2 weeks to evaluate changes. Suspect that as she become more active with PT, adjustments will need to be made. Assessment & Plan (09/08/2019 8:15 PM PLATE FITTER): A1c 6.9 however this is representing a pattern of widely variable BG d/t not treating hypoglycemia appropriately and bolusing for ensuing elevated BG. Not bolusing appropriately for food. is present for pump education/review. Total face to Face time = 50 minutes Greater than 50% of the time spent on education and couseling. Education covered 1) appropriate treatment and follow up of hypoglycemia, 2) when to correct post treatment, 3) use of temp basal, 4) use of extended bolus for mixed meals. Assessment & Plan (04/22/2019 12:27 PM CDT): Hba1c was Lab Results Component Value Date HGBA1C 6.8 04/22/2019 today, indicating adequate DM control 1800 calorie, consistent carb diet recommended. No more than 30-45 grams of carbs per meal recommended, as well as avoiding high concentrated sweet drinks . 25-45 min daily exercise, combining both aerobic and resistance exercise recommended. The need to monitor blood glucose before meals and bedtime was discussed. Prevention and treatment of hyypoglcyemia discussed. Insulin dose: Continue insulin pump at current settings. Assessment & Plan (05/30/2018 4:53 PM PLATE FITTER): Hba1c was Lab Results Component Value Date HGBA1C 7.2 05/30/2018 today, indicating adequate DM control 1800 calorie, consistent carb diet recommended 25-45 min daily exercise, combining both aerobic and resistance exercise recommended. The need to monitor blood glucose before meals and bedtime was discussed. Dose of basal and prandial insulin adjusted as follows: Prevention and treatment of hyypoglcyemia discussed. Assessment & Plan (02/26/2018 4:14 PM CDT): Hba1c was Lab Results Component Value Date HGBA1C 7.5 02/26/2018 today, indicating adequate DM control 1800 calorie, consistent carb diet recommended 30 min daily aerobic and resistance exercise recommended Prevention and treatment of hyypoglcyemia discussed. Blood glucose monitoring with fingers sticks 1-2 x day . Assessment & Plan (10/25/2017 1:22 PM CDT): Hba1c was Lab Results Component Value Date HGBA1C 7.2 10/25/2017 today, indicating adequate DM control 1800 calorie, consistent carb diet recommended 30 min daily exercise, combining both aerobic and resistance exercise is strongly recommended and needed as part of diabetes management plan. The need to monitor blood glucose before meals and bedtime was discussed. Take prandial insulin before meals based on carb intake and blood glucose readings. Prevention and treatment of hyypoglcyemia discussed. Assessment & Plan (07/12/2017 3:41 PM PLATE FITTER): Hba1c was 7.3 today, indicating sub-optimal DM control 1800 calorie, consistent carb diet recommended 30 min daily exercise, combining both aerobic and resistance exercise is strongly recommended and needed as part of diabetes management plan. The need to monitor blood glucose before meals and bedtime was discussed. Take prandial insulin before meals based on carb intake and blood glucose readings. Prevention and treatment of hyypoglcyemia discussed. Pump settings: basal rates: 12a 0.5, 830a 0.95, 4p 0.9 ic 10, Cf 25 iat 4h Assessment & Plan (03/08/2017 2:43 PM CDT): Hba1c was 7.0 today, indicating adequate DM control 1800 calorie, consistent carb diet recommended 30 min daily aerobic and resistance exercise recommended Foot care discused. Prevention and treatment of hyypoglcyemia discussed. Idiopathic peripheral neuropathy 09/27/2007 Spasm of muscle 09/27/2007 Swelling of limb 02/06/2007 Sciatica 09/03/2006 Recurrent major depressive episodes, moderate Shoulder joint pain 12/21/2005 Urinary incontinence 07/18/2005 Depressive disorder 03/07/2005 Generalized osteoarthritis 03/07/2005 Arthralgia of lower leg 08/22/2004 Hypertension associated with type 1 diabetes catie litus 04/07/2003 Overview (04/06/2022): Hypertension, Unspecified Assessment & Plan (10/30/2023 10:04 AM CDT): Chronic problem controlled on current losartan/hctz 50-12.5mg No changes at this time. Assessment & Plan (08/21/2023 1:32 PM PLATE FITTER): Update GFR Continue with Hyzaar Assessment & Plan (04/10/2023 10:11 AM CDT): Chronic problem controlled on current losartan/hctz 50-12.5mg No changes at this time. Assessment & Plan (01/16/2023 2:58 PM CDT): Chronic, well controlled Importance of low salt diet and exercise were discussed Continue current meds including Losartan Assessment & Plan (09/19/2022 10:52 AM PLATE FITTER): Chronic problem, normal on recheck. Currently taking losartan/hctz 50-12.5mg No changes at this time. Assessment & Plan (07/11/2022 4:03 PM PLATE FITTER): Chronic, well controlled Importance of low salt diet and exercise were discussed Continue current meds including losartan Update GFR Assessment & Plan (04/06/2022 11:18 AM CDT): Controlled on current medications, no changes. Assessment & Plan (10/20/2021 1:09 PM CDT): Controlled on current medications, no changes. Assessment & Plan (07/28/2021 1:24 PM PLATE FITTER): Controlled on current medications, no changes. Assessment & Plan (03/24/2021 4:44 PM CDT): Low-cholesterol low-salt diet Continue losartan hydrochlorothiazide Assessment & Plan (12/23/2020 2:56 PM CDT): Goal blood pressure is less than 140/85 Low salt diet was discussed andd recommended The importance of daily aerobic exercise was also emphasized. Continue current meds, including AUSTIN-I or ARB, e.g. losartan Assessment & Plan (09/21/2020 1:42 PM PLATE FITTER): Goal blood pressure is less than 140/85 Low salt diet was discussed andd recommended The importance of daily aerobic exercise was also emphasized. Continue current meds, including AUSTIN-I or ARB, e.g. Losartan Assessment & Plan (06/10/2020 3:42 PM PLATE FITTER): Controlled on current medications. Continue plan. Assessment & Plan (12/11/2019 3:32 PM CDT): Check random home BP readings Assessment & Plan (09/08/2019 4:48 PM PLATE FITTER): Controlled on current medications. Continue plan. Assessment & Plan (01/10/2019 8:41 AM CDT): Controlled on current medications. Assessment & Plan (10/16/2018 10:12 AM CDT): Controlled on current medications. Assessment & Plan (05/30/2018 4:53 PM PLATE FITTER): Goal blood pressure is less than 140/85 Low salt diet recommended Daily aerobic exercise Continue current meds, including AUSTIN-I or ARB Assessment & Plan (02/26/2018 4:14 PM CDT): Goal blood pressure is less than 140/85 Low salt diet recommended Daily aerobic exercise Continue current meds, including AUSTIN-I or ARB Assessment & Plan (10/25/2017 1:23 PM CDT): Goal blood pressure is less than 140/85 Low salt diet recommended Daily aerobic exercise Continue current meds, including AUSTIN-I or ARB Assessment & Plan (07/12/2017 3:06 PM PLATE FITTER): Goal blood pressure is less than 140/85 Low salt diet recommended Daily aerobic exercise Continue current meds, including AUSTIN-I or ARB Assessment & Plan (03/08/2017 2:45 PM CDT): Goal blood pressure is less than 140/85 Low salt diet recommended Daily aerobic exercise Continue current meds, including AUSTIN-I or ARB Neck pain 04/07/2003 Assessment & Plan (03/31/2021 11:06 AM CDT): Patient continues on gabapentin 300 mg t.i.d. for neuropathic analgesia associated with her diabetic peripheral neuropathy. She believes for the most part it seems to be helping and she has no tolerability issues with it. I have renewed her gabapentin as presently prescribed. She will follow-up in neurology clinic in a year. Assessment & Plan (03/31/2020 10:28 AM CDT): Patient continues on gabapentin 300 mg t.i.d. for neuropathic analgesia of diabetic peripheral neuropathy. She continues to enjoy good symptomatic relief and no tolerability issues. She is in need of renewal of medication. I have renewed her gabapentin 300 mg t.i.d. as scheduled and plan on seeing her back in 1 year's time. Resolved Problems Problem Noted Date Diagnosed Date Resolved Date Acute pharyngitis 04/06/2022 09/18/2022 Acute urinary tract infection 03/31/2020 09/18/2022 Type 2 diabetes mellitus wit hout complication ([facility]) 03/31/2020 03/24/2021 Type 1 diabetes mellitus with complication 01/03/2019 04/09/2023 Assessment & Plan (01/10/2019 8:52 AM CDT): A1c 6.9. Download shows variable pattern which on further questioning, is d/t inappropriate use of bolus. She has worn pump for many years. Has been using extended bolus to cover food being eaten now and food that might be eaten later. Often bolusing for foods that she thinks are carbs but in reality are PRO. Resulting in a pattern that makes it difficult to adjust settings. Majority of appt spent on pump education. Additionally needs to see hardware trainer. Have advised pt to not do correction boluses so frequently and to try to not look at Dex[employer] constantly which is leading to boluses. Concept of extended vs split bolus covered as well as temp basal. Face to Face time = 55 minutes Greater than 50% of the time spent on education and couseling. Education on basal vs bolus features and carb identificaton. Assessment & Plan (01/03/2019 11:22 AM CDT): Education provided on insertion, initiation, and calibration of sensor as appropriate. Is able to demonstrate ability to insert sensor into appropriate location and initiate session. Low alert set at 75 High alert set at 250 Instructed on how to use trend arrows in decision making with treatment plan. Follow up in 2 weeks so that trends can be evaluated and plan adjusted as indicated. Provided with contact information for 24 help line at [employer] for any questions. She has follow up appointment in one week. Face to face time = 60 minutes Greater than 50% of this visit was spent on counseling Counseling consisted of insertion, initiation, and calibration of sensor Class 2 obesity due to exces s calories with body mass index (BMI) of 39.0 to 39.9 in adult 10/16/2018 09/18/2022 Assessment & Plan (10/16/2018 10:14 AM CDT): Importance of following diet and exercising discussed. Dyslipidemia 08/17/2018 09/18/2022 Hyperlipidemia due to type 2 diabetes mellitus 10/25/2017 01/10/2019 Assessment & Plan (10/16/2018 10:13 AM CDT): At goal on current medications.Continue statin therapy. Assessment & Plan (05/30/2018 4:54 PM PLATE FITTER): Goal of treatment , LDL cholesterol less than 100 ( less than 70 in patients with history of heart attacks and / or strokes ) NonHDL cholesterol ( total cholesterol minus HDL cholesterol ) goal less than 130 ( less than 100 in patients with history of heart attacks and / or strokes ) Low cholesterol, low fat diet was discussed and advised. Daily exercise On statin therapy Assessment & Plan (02/26/2018 4:15 PM CDT): Goal of treatment , LDL cholesterol less than 100 ( less than 70 in patients with history of heart attacks and / or strokes ) NonHDL cholesterol ( total cholesterol minus HDL cholesterol ) goal less than 130 ( less than 100 in patients with history of heart attacks and / or strokes ) Low cholesterol, low fat diet was discussed and advised. Daily exercise On statin therapy Assessment & Plan (10/25/2017 1:24 PM CDT): Goal of treatment , LDL cholesterol less than 100 ( less than 70 in patients with history of heart attacks and / or strokes ) NonHDL cholesterol ( total cholesterol minus HDL cholesterol ) goal less than 130 ( less than 100 in patients with history of heart attacks and / or strokes ) Low cholesterol, low fat diet was discussed and advised. Daily exercise On statin therapy Backache 08/27/2006 09/18/2022 Hyperlipidemia 05/19/2003 09/18/2022 Overview (04/06/2022): HYPERLIPIDEMIA NEC/NOS Assessment & Plan (01/10/2019 8:41 AM CDT): LDL at goal. Continue rosuvastatin. Assessment & Plan (07/12/2017 3:06 PM PLATE FITTER): Goal of treatment , LDL cholesterol less than 100 ( less than 70 in patients with history of heart attacks and / or strokes ) NonHDL cholesterol goal less than 130 ( less than 100 in patients with history of heart attacks and / or strokes ) Continue statin therapy Assessment & Plan (03/08/2017 2:44 PM CDT): Goal of treatment , LDL cholesterol less than 100 ( less than 70 in patients with history of heart attacks and / or strokes ) NonHDL cholesterol goal less than 130 / 100 Check lipid profile . Continue statin therapy Low cholesterol diet, exercise advised. Immunizations Immunization Administration Dates Next Due Influenza, Quad, Adjuvantate d, Intramuscular 03/26/2020 Influenza, Quadrivalent, Hig h Dose, Preservative Free, Intrr 04/27/2021,05/10/2019 Influenza, Trivalent, High D ose, Split, Preservative Free, Intramuscular 04/08/2019,05/01/2018,03/30/2018,03/29,04/20/2017,04/19/2017,05/04/2016 ,05/03/2016,06/03/2015,06/02/2015 Influenza, Unspecified 05/05/2014 Pneumococcal Conjugate PCV 13 09/24/2014 Pneumococcal Polysaccharide PPV23 06/15/2015 ZOSTER LIVE 05/05/2014 Social History Tobacco Use Types Packs/Day Years Used Date Smoking Tobacco: Former Smokeless Tobacco: Never Tobacco Cessation:Counseling Given: Not Answered Alcohol Use Standard Drinks/Week Comments Yes 0 (1 standard drink = 0.6 oz pur e alcohol) AUDIT-C Answer Date Recorded Q1: How often do you have a drink containing alcohol? Never 10/13/2024 Q2: How many drinks containi ng alcohol do you have on a typical day when you are drinking? Patient does not drink Q3: How often do you have si x or more drinks on one occasion? Never 10/13/2024 PHQ-2 Answer Date Recorded PHQ-2 Total Score (If total score is 3 or more points, staff should administer the PHQ-9) 0 06/30/2024 Comments No Sex and Gender Information Value Date Recorded Sex Assigned at Not on file Legal Sex Female 1:59 PM PLATE FITTER Gender Identity Female 03/08/2020 4:32 PM CDT Sexual Orientation Straight 03/08/2020 4: 32 PM CDT Occupation Industry Job Start Date Job End Date RETIRED Not on file Not on file Not on file Last Filed Vital Signs Vital Sign Reading Time Taken Comments Blood Pressure 124/62 10/13/2024 1:10 PM CDT Pulse 68 10/13/2024 1:10 PM CDT Temperature 36.3 C (97.3 F) 03/15/2022 10:57 AM CDT Respiratory Rate 18 10/13/2024 1:10 PM CDT Oxygen Saturation - - Inhaled Oxygen Concentration - - Weight 89.6 kg (197 lb 9.6 oz) 10/13/2024 1:10 P M CDT Height 165.1 cm (5' 5 ) 10/13/2024 1:10 PM CDT Body Mass Index 32.88 10/13/2024 1:10 PM CDT Plan of Treatment Not on file Procedures Procedure Name Priority Date/Time Associated Diagnosis Comments HM DIABETES EYE EXAM Routine 11/05/2024 8:11 AM CDT POCT GLUCOSE Routine 10/13/2024 1:12 PM CDT Type 1 diabetes mellitus with hyperglycemia (HCC) POCT HEMOGLOBIN A1C Routine 10/13/2024 1 :12 PM CDT Type 1 diabetes mellitus with hyperglycemia (HCC) EGFR Routine 10/03/2024 2:12 PM CDT 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) T4, FREE Routine 10/03/2024 2:12 PM CDT 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) DIFFERENTIAL AUTO Routine 10/03/2024 2:1 2 PM CDT 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) HEMOGLOBIN A1C Routine 10/03/2024 2:12 PM CDT 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) CBC WITH AUTO DIFFERENTIAL Routine 10/03/2024 2:12 PM CDT 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) COMPREHENSIVE METABOLIC PANEL Routine 10/03/2024 2:12 PM CDT 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) THYROID FUNCTION CASCADE Routine 10/03/2024 2:12 PM CDT 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) T3, FREE Routine 10/03/2024 2:12 PM CDT 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) LIPID PANEL Routine 10/03/2024 2:12 PM CDT 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) ALBUMIN CREATININE RATIO, URINE Routine 10/30/2023 11:03 AM CDT Type 1 diabetes mellitus with hyperglycemia (HCC) from Last 3 Months or Most Recently Relevant to Health Maintenance Results * DIABETES EYE EXAM (11/05/2024 8:11 AM CDT) Brett Stone MD HEALTH MAINTENANCE Final Result * POCT hemoglobin A1c (10/13/2024 1:12 PM CDT) Hemoglobin A1C, POC 5.1 4.0 - 5.6 % Comment:None Capillary blood 10/13/2024 1 :12 PM CDT Result [facility] Jaqueline Pollack MD POINT OF CARE TEST ORDERABLES Fi nal Result * POCT glucose (10/13/2024 1:12 PM CDT) Glucose Blood, POC 110 mg/dL Comment:None Blood 10/13/2024 1:12 PM CDT Result [facility] Jaqueline Pollack MD POINT OF CARE TEST ORDERABLES Fi nal Result * eGFR (10/03/2024 2:12 PM CDT) eGFR 70 >=60 mL/min/1. 73 m2 Comment: Interpretive Data Reference Interval Normal >/= 90 mL/min/1.73m2 Mildly decreased* 60 - 89 mL/min/1.73m2 Mildly to moderately decreased 45 - 59 mL/min/1.73m2 Moderately to severely decreased 30 - 44 mL/min/1.73m2 Severely decreased 15 - 29 mL/min/1.73m2 Kidney Failure < 15 mL/min/1.73m2 *Relative to young adult level Estimated glomerular filtration rate is determined by the 2020 CKD-EPI equation recommended by the National Kidney Foundation (A Unifying Approach to GFR Estimation: Recommendations of the NKF-ASK Task Force on Reassessing the Inclusion of Race in Diagnosing Kidney Disease, JASN 2020). The CKD-EPI equation should not be used for patients with unstable renal function and has not been validated in children and those over 70. Current interpretive data was last reviewed 2021. Blood 10/03/2024 2:12 PM CDT 10/03/2024 9:09 PM CDT Liat Donaldson MD LAB BLOOD ORDERABLES Final R esult [facility] [id number] [place] [address] * (ABNORMAL) Differential, auto (10/03/2024 2:12 PM CDT) Neutrophil abs 3.9 1.5 - 6.5 K/cumm Imm gran abs 0.1 0.0 - 0.1 K/cumm [facility] Lymphocyte abs 4.3(H) 0.8 - 3.3 K/cumm [facility] Monocyte abs 0.9(H) 0.2 - 0.8 K/cumm [facility] Eosinophil abs 0.2 0.0 - 0.5 K/cumm [facility] Basophil abs 0.1 0.0 - 0.1 K/cumm [facility] Neutrophil pct 41.1 % [facility] Comment: Interpretive Data Percent cell count reference ranges are not reported, since discordance with absolute values may lead to misinterpretation of CBC data. Current Interpretive Data was last revised on 2017. Imm gran pct 1.0 % [facility] Comment: Interpretive Data Percent cell count reference ranges are not reported, since discordance with absolute values may lead to misinterpretation of CBC data. Current Interpretive Data was last revised on 2017. Lymphocyte pct 45.5 % [facility] Comment: Interpretive Data Percent cell count reference ranges are not reported, since discordance with absolute values may lead to misinterpretation of CBC data. Current Interpretive Data was last revised on 2017. Monocyte pct 9.7 % [facility] Comment: Interpretive Data Percent cell count reference ranges are not reported, since discordance with absolute values may lead to misinterpretation of CBC data. Current Interpretive Data was last revised on 2017. Eosinophil pct 1.6 % [facility] Comment: Interpretive Data Percent cell count reference ranges are not reported, since discordance with absolute values may lead to misinterpretation of CBC data. Current Interpretive Data was last revised on 2017. Basophil pct 1.1 % [facility] Comment: Interpretive Data Percent cell count reference ranges are not reported, since discordance with absolute values may lead to misinterpretation of CBC data. Current Interpretive Data was last revised on 2017. Blood 10/03/2024 2:12 PM CDT 10/03/2024 9:01 PM CDT Liat Donaldson MD LAB BLOOD ORDERABLES Final R esult Performing Organization Address [facility] Co de Phone Number HITESH VLAD [id number] [employer] [place], [place] [id number] * (ABNORMAL) Thyroid Function Clare (10/03/2024 2:12 PM CDT) TSH 8.01(H) 0.30 - 4.20 mcIUnit/mL Blood 10/03/2024 2:12 PM CDT 10/03/2024 9:01 PM CDT Liat Donaldson MD LAB BLOOD ORDERABLES Final R esult Performing Organization Address [facility] Co de Phone Number MATTTAMMI CHU [address] [place] [address] * (ABNORMAL) CBC with auto differential (10/03/2024 2:12 PM CDT) WBC 9.4 3.8 - 9.9 K/cumm Hgb 10.5(L) 11.9 - 15.5 g/dL [facility] Hct 31.9(L) 35.6 - 45.5 % [facility] Plt 417(H) 150 - 400 K/cumm [facility] MPV 9.8 9.1 - 12.3 fL [facility] RBC 3.40(L) 3.90 - 5.20 M/cumm [facility] CH MCV 93.8 81.3 - 96.4 fL [facility] CH MCH 30.9 27.1 - 33.3 pg [facility] MCHC 32.9 32.3 - 35.7 g/dL [facility] RDW CV 15.9(H) 11.1 - 14.9 % [facility] CH RDW SD 55.0(H) 35.7 - 48.1 fL [facility] NRBC abs 0.00 0.00 - 0.01 K/cumm [facility] Blood 10/03/2024 2:12 PM CDT 10/03/2024 9:01 PM CDT us Liat Donaldson MD LAB BLOOD ORDERABLES Final R esult Performing Organization Address [facility] Co de Phone Number [facility] [id number] [facility] Department [place] [address] * (ABNORMAL) T3, free (10/03/2024 2:12 PM CDT) Pathologist [facility] Free T3 1.6(L) 2.0 - 4.4 pg/mL Blood 10/03/2024 2:12 PM CDT 10/03/2024 9:01 PM CDT Narrative [facility] - 10/03/2024 9:42 PM CDT FAX RESULTS TO LIAT DONALDSON [phone] Liat Donaldson MD LAB BLOOD ORDERABLES Final R esult HITESH CHU [address] [place] [address] * T4, free (10/03/2024 2:12 PM CDT) Free T4 1.02 0.90 - 1.70 ng/dL Blood 10/03/2024 2:12 PM CDT 10/03/2024 9:09 PM CDT Liat Donaldson MD LAB BLOOD ORDERABLES Final R esult Performing Organization Address City/[facility] Co de Phone Number HITESH [id number] [place] [address] * Hemoglobin A1c (10/03/2024 2:12 PM CDT) [facility] Hgb A1C 4.5 4.0 - 5.6 % Estimated Average Glucose 82 mg/dL HITESH Comment: The ADA recommends reporting an estimated Average Glucose (eAG) with all Hemoglobin A1c results using the equation derived from a study of 507 normal and diabetic adults. Minority populations were underrepresented and children were not included. (Diabetes Care 31:3151-6838, 2008). The eAG is not equivalent to a fasting glucose. Blood Venous blood specimen / Unknown 10/03/2024 2:12 PM CDT 10/03/2024 9:01 PM CDT Narrative HITESH CHU - 10/03/2024 9:27 PM CDT FAX RESULTS TO LIAT DONALDSON [phone] Liat Donaldson MD LAB BLOOD ORDERABLES Final R esult Performing Organization Address City/State/[facility] Co de Phone Number HITESH CHU [address] [place] [address] * Lipid panel (10/03/2024 2:12 PM CDT) [facility] Cholesterol 185 30 - 199 mg/dL Comment: Interpretive Data Ages < or = 19 years Acceptable: <170 mg/dL Borderline high: 170-199 mg/dL High: >or= 200 mg/dL Ages > or = 20 years Desirable: <200 mg/dL Borderline high: 200-239 mg/dL High: >or= 240 mg/dL Literature References: 1. Expert Panel on Integrated Guidelines for Cardiovascular Health and Risk Reduction in Children and Adolescents. Pediatrics 2011;128:S213 2. NCEP Expert Panel. Circulation 2004;110:227 Current Interpretive Data was last revised on 2018. Triglycerides 71 <=149 mg/dL HITESH Comment: Interpretive Data Ages < or = 9 years Acceptable: <75 mg/dL Borderline high: 75-99 mg/dL High: >or= 100 mg/dL Ages 10 to 20 years Acceptable: <90 mg/dL Borderline high: 90-129 mg/dL High: >or= 130 mg/dL Ages > or = 20 years Desirable: <150 mg/dL Borderline high: 150-199 mg/dL High: 200-499 mg/dL Very high: >or= 499 mg/dL Literature References: 1. Expert Panel on Integrated Guidelines for Cardiovascular Health and Risk Reduction in Children and Adolescents. Pediatrics 2011;128:S213 2. NCEP Expert Panel. Circulation 2004;110:227 Current Interpretive Data was last revised on 2018. HDL 117 >=40 mg/dL HITESH Comment: Interpretive Data Ages < or = 19 years Acceptable: >45 mg/dL Borderline low: 40-45 mg/dL Low: <40 mg/dL Ages > or = 20 years Desirable: >or= 60 mg/dL Low: <40 mg/dL Literature References: 1. Expert Panel on Integrated Guidelines for Cardiovascular Health and Risk Reduction in Children and Adolescents. Pediatrics 2011;128:S213 2. NCEP Expert Panel. Circulation 2004;110:227 Current Interpretive Data was last revised on 2018. LDL, calculated 55 <=129 mg/dL HITESH Comment: Interpretive Data Ages < or = 19 years Acceptable: <110 mg/dL Borderline high: 110-129 mg/dL High: >or= 130 mg/dL Ages > or = 20 years Optimal: <100 mg/dL Near optimal: 100-129 mg/dL Borderline high: 130-159 mg/dL High: >160 mg/dL Calculated using the Vázquez LDL-C estimating equation. This equation was implemented on 2024. Prior to this date LDL-C was estimated using the Friedewald equation. Literature References: 1. Expert Panel on Integrated Guidelines for Cardiovascular Health and Risk Reduction in Children and Adolescents. Pediatrics 2011;128:S213 2. NCEP Expert Panel. Circulation 2004;110:227 3. Gurpreet Hunt et al. ELIZABETH Cardiol. 2019November 20;5(5):540-548. doi: [email or web address] Current Interpretive Data was last revised on 2024. Non-HDL Cholesterol 68 mg/dL [facility] Comment: Interpretive Data Ages < or = 19 years Acceptable: <120 mg/dL Borderline high: 120-144 mg/dL High: >145 mg/dL Ages > or = 20 years When triglycerides are >200 mg/dL, Non-HDL cholesterol is a secondary target of therapy with treatment goals that are 30 mg/dL greater than the LDL cholesterol target. Literature References: 1. Expert Panel on Integrated Guidelines for Cardiovascular Health and Risk Reduction in Children and Adolescents. Pediatrics 2011;128:S213 2. NCEP Expert Panel. Circulation 2004;110:227 Current Interpretive Data was last revised on 2018. Chol/HDL ratio 2 [facility] Blood Venous blood specimen / Unknown 10/03/2024 2:12 PM CDT 10/03/2024 9:01 PM CDT Liat Donaldson MD LAB BLOOD ORDERABLES Final R esult [facility] [address] Department [place] [address] * (ABNORMAL) Comprehensive metabolic panel (10/03/2024 2:12 PM CDT) Sodium 134(L) 135 - 145 mmol/L Potassium, pl 4.0 3.3 - 4.9 mmol/L [facility] Chloride 94(L) 97 - 110 mmol/L [facility] CO2 25 22 - 32 mmol/L [facility] Anion gap 15 2 - 15 mmol/L [facility] BUN 23 6 - 25 mg/dL [facility] Creatinine 0.87 0.60 - 1.10 mg/dL [facility] Glucose 123 70 - 199 mg/dL [facility] Comment: Interpretive Data Fasting glucose >/= 126 mg/dl is diagnostic for diabetes. Fasting is defined as no caloric intake for at least 8 hours. Fasting glucose between 100 mg/dl to 125 mg/dl is diagnostic of prediabetes. In a patient with classic symptoms of hyperglycemia or hyperglycemic crisis, a random glucose >/= 200 mg/dl is diagnostic for diabetes. In the absence of unequivocal hyperglycemia, results should be confirmed by repeat testing. The classification and Diagnosis of Diabetes Diabetes Care 2021; 46: S19-S40. Current interpretive data was last revised 2022. Calcium 9.8 8.5 - 10.3 mg/dL [facility] Bilirubin, total 0.4 0.1 - 1.2 mg/dL [facility] Protein, pl 7.2 6.5 - 8.5 g/dL [facility] Albumin 4.3 3.5 - 5.0 g/dL [facility] Alk phos 59 40 - 130 Units/L [facility] ALT 15 7 - 45 Units/L [facility] Comment:Lipemia present. Res ults may be affected. AST 36 10 - 45 Units/L [facility] Comment:Lipemia present. Res ults may be affected. Blood Venous blood specimen / Unknown 10/03/2024 2:12 PM CDT 10/03/2024 9:01 PM CDT us Liat Donaldson MD LAB BLOOD ORDERABLES Final R esult [facility] [id number] Department [place] [address] * Albumin Creatinine Ratio, Urine (10/30/2023 11:03 AM CDT) Albumin Ur 22.2 mg/L Comment: Interpretive Data No reference range established. Current interpretive data was last revised 2018. Creatinine Ur 95.5 mg/dL [facility] Comment: Interpretive Data No reference range established. Current interpretive data was last revised 2018. Albumin Creatinine Ratio, Ur 23 1 - 29 mg/g [facility] Urine 10/30/2023 11:0 3 AM CDT 10/30/2023 2:32 PM CDT us Kelsy Carpenter NP LAB URINE ORDERABLES Berta mckay Result [facility] [id number] [place] [address] from Last 3 Months or Most Recently Relevant to Health Maintenance Insurance MEDICARE [facility] Address: [address] [place] [address] [facility] [employer] Member Subscriber Plan / Payer (Ef fective 2015-Present) Name:Valeria Ladd Relation to Subscriber:Spouse Name:JAKOB LADD Date of :1949 (Home) Address: [address] [place] [phone] Payer ID:[id number] (NAIC) Group ID:[id number] Type:BC [employer] Address: [address] [place] [id number] MEDICARE Care Teams Extension Service Supervisor Relationship Specialty Start Date End Date Liat Donaldson MD PCP - General 10/20/16
--- OUTSIDE RECORDS SUMMARY | 2024-11-20 10:43 | XMS_ITS | Clinical Summary ---
Author Organization [facility] [address] [place] [address] [place] [phone] Care Team Providers Care Cost And Sales Record Supervisor Name Role Phone Liat Donaldson MD Primary Care Provider [phone] Allergies Active Allergy Reactions Criticality Noted Date [...] 09/19/2022 Assessment & Plan (09/19/2022 10:36 AM SUPPLY AND DISTRIBUTION MANAGER): Discussed healthy diet and importance of regular [...] therapy prescribed by her treating neurosurgeon in [place]. Further evaluation and management regarding the footdrop [...] 1 Assessment & Plan (06/30/2024 3:13 PM SUPPLY AND DISTRIBUTION MANAGER): Chronic, stable Continue rosuvastatin 10 mg daily. Assessment & Plan (04/02/2024 3:35 PM CDT): Chronic, stable. Continue current medication including Hyzaar Assessment & Plan (10/30/2023 10:04 AM CDT): Chronic problem, well controlled on current Rosuvastatin 10mg. Last lipid panel: 08/22/23 LDL=67, TG=57. No changes at this time. Assessment & Plan (08/21/2023 1:32 PM SUPPLY AND DISTRIBUTION MANAGER): Chronic, well controlled Update Lipid profile Continue Simvastatin Assessment & Plan (04/10/2023 10:12 AM CDT): Chronic problem, well controlled on current Rosuvastatin 10mg. Last lipid panel: 08/04/22 LDL=66, TG=49. No changes at this time. Assessment & Plan (01/16/2023 3:00 PM CDT): Chronic, well controlled Low fat Low cholesterol diet Exercise Continue statin therapy wit Rosuvastatin Assessment & Plan (09/19/2022 10:47 AM SUPPLY AND DISTRIBUTION MANAGER): Chronic problem, well controlled on current Rosuvastatin 10mg. Last lipid panel: 08/04/22 LDL=66, TG=49. No changes at this time. Assessment & Plan (07/11/2022 4:02 PM SUPPLY AND DISTRIBUTION MANAGER): Chronic, well controlled Low fat Low cholesterol [...] changes. Assessment & Plan (07/28/2021 3:56 PM SUPPLY AND DISTRIBUTION MANAGER): Chronic problem. On statin therapy, no changes. [...] Crestor Assessment & Plan (09/21/2020 1:42 PM SUPPLY AND DISTRIBUTION MANAGER): Goal of treatment , LDL cholesterol less [...] exercise Assessment & Plan (06/10/2020 3:43 PM SUPPLY AND DISTRIBUTION MANAGER): Check lipid panel. Keep in consideration that [...] therapy Assessment & Plan (09/08/2019 9:40 AM SUPPLY AND DISTRIBUTION MANAGER): At goal on current medications. Continue statin [...] changes. Assessment & Plan (09/19/2022 10:31 AM SUPPLY AND DISTRIBUTION MANAGER): O[employer]od insulin pump with Humalog BR 12a 0.3, 430a 0.7, 4p 0.80, 10p 0.7 CR 10 CF 40 Target 110 AIT 4 hrs Added basal rate: 9-1130a 0.9 Assessment & Plan (04/06/2022 11:50 AM CDT): No pump setting changes. Assessment & Plan (10/20/2021 1:09 PM CDT): No pump changes today. Assessment & Plan (07/28/2021 3:58 PM SUPPLY AND DISTRIBUTION MANAGER): Change settings to: BR 12a 0.5, 4a [...] midnight Assessment & Plan (09/08/2019 8:16 PM SUPPLY AND DISTRIBUTION MANAGER): No change to current settings until assessed [...] of bolusing appropriately and follow up with production trainer. Assessment & Plan (10/16/2018 10:13 AM CDT): No change to settings. Assessment & Plan (07/12/2017 3:39 PM SUPPLY AND DISTRIBUTION MANAGER): Have long acting , basal insulin ( [...] exercise Assessment & Plan (06/30/2024 3:13 PM SUPPLY AND DISTRIBUTION MANAGER): Chronic, stable with some hypoglycemia I made [...] labs. Last DM eye exam 10/19/22 at [facility]. Scheduled for 11/01/23. Letter sent [...] infection. Assessment & Plan (08/21/2023 1:28 PM SUPPLY AND DISTRIBUTION MANAGER): Hba1c was Lab Results Component Value Date [...] labs. Last DM eye exam 10/19/22 at [facility]. Letter sent to get most [...] settings Assessment & Plan (09/19/2022 10:53 AM SUPPLY AND DISTRIBUTION MANAGER): Chronic problem, well controlled. Having postprandial increase [...] update MA/Cr today. Verified that she uses [employer]. Aware to check results/results letter in [employer]. Will contact by phone if needed. Omnipod insulin pump with Humalog BR 12a 0.3, 430a 0.7, Added basal rate: 9-1130a 0.9, 4p 0.80, 10p 0.7 CR 10 CF 40 Target 110 AIT 4 hrs Assessment & Plan (07/11/2022 4:01 PM SUPPLY AND DISTRIBUTION MANAGER): Hba1c was Lab Results Component Value Date [...] is interested in. Sent in prescriptions to [facility] pharmacy, and she will let us know [...] she should check with her DME supplier ([employer]). Assessment & Plan (07/28/2021 3:57 PM SUPPLY AND DISTRIBUTION MANAGER): Chronic problem, not at goal with frequent [...] n Assessment & Plan (09/21/2020 1:42 PM SUPPLY AND DISTRIBUTION MANAGER): Hba1c was Lab Results Component Value Date [...] settings Assessment & Plan (06/10/2020 3:42 PM SUPPLY AND DISTRIBUTION MANAGER): A1c 6.3. BG pattern acceptable. No change [...] instructions in writing and they will contact [employer] if any issues being able to do this. Advised pump upload in 2 weeks to evaluate changes. Suspect that as she become more active with PT, adjustments will need to be made. Assessment & Plan (09/08/2019 8:15 PM SUPPLY AND DISTRIBUTION MANAGER): A1c 6.9 however this is representing a [...] settings. Assessment & Plan (05/30/2018 4:53 PM SUPPLY AND DISTRIBUTION MANAGER): Hba1c was Lab Results Component Value Date [...] discussed. Assessment & Plan (07/12/2017 3:41 PM SUPPLY AND DISTRIBUTION MANAGER): Hba1c was 7.3 today, indicating sub-optimal DM [...] time. Assessment & Plan (08/21/2023 1:32 PM SUPPLY AND DISTRIBUTION MANAGER): Update GFR Continue with Hyzaar Assessment & Plan (04/10/2023 10:11 AM CDT): Chronic problem controlled on current losartan/hctz 50-12.5mg No changes at this time. Assessment & Plan (01/16/2023 2:58 PM CDT): Chronic, well controlled Importance of low salt diet and exercise were discussed Continue current meds including Losartan Assessment & Plan (09/19/2022 10:52 AM SUPPLY AND DISTRIBUTION MANAGER): Chronic problem, normal on recheck. Currently taking losartan/hctz 50-12.5mg No changes at this time. Assessment & Plan (07/11/2022 4:03 PM SUPPLY AND DISTRIBUTION MANAGER): Chronic, well controlled Importance of low salt diet and exercise were discussed Continue current meds including losartan Update GFR Assessment & Plan (04/06/2022 11:18 AM CDT): Controlled on current medications, no changes. Assessment & Plan (10/20/2021 1:09 PM CDT): Controlled on current medications, no changes. Assessment & Plan (07/28/2021 1:24 PM SUPPLY AND DISTRIBUTION MANAGER): Controlled on current medications, no changes. Assessment [...] losartan Assessment & Plan (09/21/2020 1:42 PM SUPPLY AND DISTRIBUTION MANAGER): Goal blood pressure is less than 140/85 Low salt diet was discussed andd recommended The importance of daily aerobic exercise was also emphasized. Continue current meds, including AUSTIN-I or ARB, e.g. Losartan Assessment & Plan (06/10/2020 3:42 PM SUPPLY AND DISTRIBUTION MANAGER): Controlled on current medications. Continue plan. Assessment & Plan (12/11/2019 3:32 PM CDT): Check random home BP readings Assessment & Plan (09/08/2019 4:48 PM SUPPLY AND DISTRIBUTION MANAGER): Controlled on current medications. Continue plan. Assessment & Plan (01/10/2019 8:41 AM CDT): Controlled on current medications. Assessment & Plan (10/16/2018 10:12 AM CDT): Controlled on current medications. Assessment & Plan (05/30/2018 4:53 PM SUPPLY AND DISTRIBUTION MANAGER): Goal blood pressure is less than 140/85 [...] ARB Assessment & Plan (07/12/2017 3:06 PM SUPPLY AND DISTRIBUTION MANAGER): Goal blood pressure is less than 140/85 [...] Type 2 diabetes mellitus wit hout complication ([facility]) 03/31/2020 03/24/2021 Type 1 diabetes [...] on pump education. Additionally needs to see production trainer. Have advised pt to not do [...] contact information for 24 help line at [employer] for any questions. She has follow up [...] therapy. Assessment & Plan (05/30/2018 4:54 PM SUPPLY AND DISTRIBUTION MANAGER): Goal of treatment , LDL cholesterol less [...] rosuvastatin. Assessment & Plan (07/12/2017 3:06 PM SUPPLY AND DISTRIBUTION MANAGER): Goal of treatment , LDL cholesterol less [...] statin therapy Low cholesterol diet, exercise advised. 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) Discharge Disposition: Discharge to home or self care 10/03/2024 1:45 PM CDT Lab [facility] Outpatient Lab at [address] [phone] 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) (Primary Dx); Hypertension associated with type 1 diabetes mellitus (HCC) from Last 3 Months Immunizations Immunization Administration Dates Next Due Influenza, Quad, Adjuvantate d, Intramuscular 03/26/2020 Influenza, Quadrivalent, Hig h Dose, Preservative Free, Intrr 04/27/2021,05/10/2019 Influenza, Trivalent, High D ose, Split, Preservative Free, Intramuscular 04/08/2019,05/01/2018,03/30/2018,03/29,04/20/2017,04/19/2017,05/04/2016 ,05/03/2016,06/03/2015,06/02/2015 Influenza, Unspecified 05/05/2014 Pneumococcal Conjugate PCV 13 09/24/2014 Pneumococcal Polysaccharide PPV23 06/15/2015 ZOSTER LIVE 05/05/2014 Surgical History Surgery Date Site/Laterality Comments HYSTERECTOMY Hysterectomy BREAST BIOPSY Breast biopsy TONSILLECTOMY Tonsillectomy LAMINECTOMY AND MICRODISCECTOMY LUMBAR SPINE Medical History Medical History Date Comments Hypertension Hypertension Hyperlipidemia Hyperlipidemia Diabetes mellitus (HCC) Diabetes Hx Other Medical bone spurs in b oth knees Ankylosing spondylitis lumbar region (HCC) Neuropathy Diabetes mellitus type I (HCC) Family History Medical History Relation Name Comments Cancer Father Heart disease Father Stroke Father Alzheimer's disease Mother Hypertension Mother Diabetes type II Other 2 D M Type II ; Relation Name Status Comments Father Mother Other 1 Alive Other 2 Social History Tobacco Use Types Packs/Day Years [...] on file Legal Sex Female 1:59 PM SUPPLY AND DISTRIBUTION MANAGER Gender Identity Female 03/08/2020 4:32 PM CDT Sexual Orientation Straight 03/08/2020 4: 32 PM CDT Occupation Industry Job Start Date Job End Date RETIRED Not on file Not on file Not on file Obstetrics History Last Filed Vital Signs Vital Sign Reading [...] 10/13/2024 1:10 PM CDT Plan of Treatment Health Maintenance Due Date Last Done Comments Breast Cancer Screening-Mammogram 1950 Colon Cancer Screening-Colonoscopy 1950 Hepatitis C Screening 1950 DTaP/Tdap/Td Vaccine (1 - Tdap) 1961 Hepatitis B Screening 1968 Zoster Vaccine (2 of 3) 06/30/2014 05/05/2014 Well Visit 65+ 2015 Covid-19 Vaccine (5 - 2023-2 5 season) 2024 09/26/2021, 03/18/2021, 10/11/2020, Additional history exists Foot Exam 04/10/2024 04/10/2023, 12/22, 09/21/2020, Additional history exists Osteoporosis Screening-Bone Density Scan 10/18/2024 10/18/2022 Albumin Creatinine Ratio, Urine 10/29/2024 10/30/2023, 09/19/2022, 08/30/2021, Additional history exists Influenza Vaccine (Season Ended) 2025 04/24/2022, 04/27/2021, 03/26/2020, Additional history exists Hemoglobin A1C 04/15/2025 10/13/2024, 09/20, 06/30/2024, Additional history exists Depression Screening 06/30/2025 06/30/2024, 07/11/2022, 01/12/2022, Additional history exists Fall Risk Assessment 06/30/2025 06/30/2024, 04/02/20 Lipid Panel 10/03/2025 10/03/2024, 07/25, 08/04/2022, Additional history exists TSH Level 10/03/2025 10/03/2024, 02/2022, 06/30/2020 eGFR 10/03/2025 10/03/2024, 07/25, 08/04/2022 Dilated Eye Exam 11/05/2025 11/05/2024, 05/2024, 10/19/2022, Additional history exists Pneumococcal vaccine 65+ Completed 06/15/2015, 11/2014 Procedures Procedure Name Priority Date/Time Associated Diagnosis [...] EYE EXAM (11/05/2024 8:11 AM CDT) Brett Provider HEALTH MAINTENANCE Final Result * POCT hemoglobin A1c (10/13/2024 1:12 PM CDT) Hemoglobin A1C, POC 5.1 4.0 - 5.6 % Comment:None Capillary blood 10/13/2024 1 :12 PM CDT Jaqueline Pollack MD POINT OF CARE TEST ORDERABLES Fi nal Result * POCT glucose (10/13/2024 1:12 PM CDT) Glucose Blood, POC 110 mg/dL Comment:None Blood 10/13/2024 1:12 PM CDT Jaqueline Pollack MD POINT OF CARE TEST [...] LAB BLOOD ORDERABLES Final R esult [facility] [id number] Department [place] [address] * (ABNORMAL) Differential, auto (10/03/2024 2:12 PM CDT) Neutrophil abs 3.9 1.5 - 6.5 K/cumm Imm gran abs 0.1 0.0 - 0.1 K/cumm [facility] Lymphocyte abs 4.3(H) 0.8 - 3.3 K/cumm [facility] Monocyte abs 0.9(H) 0.2 - 0.8 K/cumm [facility] Eosinophil abs 0.2 0.0 - 0.5 K/cumm [facility] Basophil abs 0.1 0.0 - 0.1 K/cumm [facility] Neutrophil pct 41.1 % [facility] Comment: Interpretive Data Percent cell count reference ranges are not reported, since discordance with absolute values may lead to misinterpretation of CBC data. Current Interpretive Data was last revised on 2017. Imm gran pct 1.0 % [facility] Comment: Interpretive Data Percent cell count reference ranges are not reported, since discordance with absolute values may lead to misinterpretation of CBC data. Current Interpretive Data was last revised on 2017. Lymphocyte pct 45.5 % [facility] Comment: Interpretive Data Percent cell count reference ranges are not reported, since discordance with absolute values may lead to misinterpretation of CBC data. Current Interpretive Data was last revised on 2017. Monocyte pct 9.7 % [facility] Comment: Interpretive Data Percent cell count reference ranges are not reported, since discordance with absolute values may lead to misinterpretation of CBC data. Current Interpretive Data was last revised on 2017. Eosinophil pct 1.6 % [facility] Comment: Interpretive Data Percent cell count reference ranges are not reported, since discordance with absolute values may lead to misinterpretation of CBC data. Current Interpretive Data was last revised on 2017. Basophil pct 1.1 % [facility] Comment: Interpretive Data Percent cell count reference ranges are not reported, since discordance with absolute values may lead to misinterpretation of CBC data. Current Interpretive Data was last revised on 2017. Blood 10/03/2024 2:12 PM CDT 10/03/2024 9:01 PM CDT us Liat Donaldson MD LAB BLOOD ORDERABLES Final R esult [facility] [id number] Department [place] [address] * (ABNORMAL) Thyroid Function [place] (10/03/2024 2:12 PM CDT) TSH 8.01(H) 0.30 - 4.20 mcIUnit/mL Blood 10/03/2024 2:12 PM CDT 10/03/2024 9:01 PM CDT Liat Donaldson MD LAB BLOOD ORDERABLES Final R esult Performing Organization Address City/[facility]/ZIP Co de Phone Number HITESH [address] [place] [address] * (ABNORMAL) CBC with auto differential (10/03/2024 2:12 PM CDT) WBC 9.4 3.8 - 9.9 K/cumm Hgb 10.5(L) 11.9 - 15.5 g/dL [facility] Hct 31.9(L) 35.6 - 45.5 % [facility] Plt 417(H) 150 - 400 K/cumm [facility] MPV 9.8 9.1 - 12.3 fL [facility] RBC 3.40(L) 3.90 - 5.20 M/cumm [facility] MCV 93.8 81.3 - 96.4 fL [facility] MCH 30.9 27.1 - 33.3 pg [facility] MCHC 32.9 32.3 - 35.7 g/dL [facility] RDW CV 15.9(H) 11.1 - 14.9 % [facility] RDW SD 55.0(H) 35.7 - 48.1 fL [facility] NRBC abs 0.00 0.00 - 0.01 K/cumm [facility] Blood 10/03/2024 2:12 PM CDT 10/03/2024 9:01 PM CDT Liat Donaldson MD LAB BLOOD ORDERABLES Final R esult [facility] [id number] [place] [address] * (ABNORMAL) T3, free (10/03/2024 2:12 PM CDT) Free T3 1.6(L) 2.0 - 4.4 pg/mL Blood 10/03/2024 2:12 PM CDT 10/03/2024 9:01 PM CDT Narrative HITESH - 10/03/2024 9:42 PM CDT FAX RESULTS TO LITA DONALDSON [phone] Liat Donaldson MD LAB BLOOD ORDERABLES Final R esult Performing Organization Address [facility] de Phone Number [facility] [address] [place] [address] * T4, free (10/03/2024 2:12 PM CDT) Pathologist [facility] Free T4 1.02 0.90 - 1.70 ng/dL Blood 10/03/2024 2:12 PM CDT 10/03/2024 9:09 PM CDT Liat Donaldson MD LAB BLOOD ORDERABLES Final R esult Performing Organization Address [facility] Phone Number [facility] [address] [place] [address] * Hemoglobin A1c (10/03/2024 2:12 PM CDT) [facility] Hgb A1C 4.5 4.0 - 5.6 % Estimated Average Glucose 82 mg/dL [facility] Comment: The ADA recommends reporting an estimated Average Glucose (eAG) with all Hemoglobin A1c results using the equation derived from a study of 507 normal and diabetic adults. Minority populations were underrepresented and children were not included. (Diabetes Care 31:5033-4676, 2008). The eAG is not equivalent to a fasting glucose. Blood Venous blood specimen / Unknown 10/03/2024 2:12 PM CDT 10/03/2024 9:01 PM CDT Narrative HITESH - 10/03/2024 9:27 PM CDT FAX RESULTS TO LIAT DONALDSON [phone] Liat Donaldson MD LAB BLOOD ORDERABLES Final R esult Performing Organization Address [facility]/State/ZIP Co de Phone Number [facility] [address] [facility] Department [place] [address] * Lipid panel (10/03/2024 2:12 PM CDT) Cholesterol 185 30 - 199 mg/dL Comment: [...] on 2018. Triglycerides 71 <=149 mg/dL [facility] Comment: Interpretive Data Ages < or = [...] on 2018. HDL 117 >=40 mg/dL [facility] Comment: Interpretive Data Ages < or = [...] 2018. LDL, calculated 55 <=129 mg/dL [facility] Comment: Interpretive Data Ages < or = 19 years Acceptable: <110 mg/dL Borderline high: 110-129 mg/dL High: >or= 130 mg/dL Ages > or = 20 years Optimal: <100 mg/dL Near optimal: 100-129 mg/dL Borderline high: 130-159 mg/dL High: >160 mg/dL Calculated using the Gurpreet LDL-C estimating equation. This equation was implemented on 2024. Prior to this date LDL-C was estimated using the Friedewald equation. Literature References: 1. Expert Panel on Integrated Guidelines for Cardiovascular Health and Risk Reduction in Children and Adolescents. Pediatrics 2011;128:S213 2. NCEP Expert Panel. Circulation 2004;110:227 3. Gurpreet M et al. ELIZABETH Cardiol. 2020 November 20;5(5):540-548. doi: 10.1001/jamacardio.2020.0013 Current Interpretive Data was last revised on 2024. Non-HDL Cholesterol 68 mg/dL [facility] Comment: Interpretive Data Ages < or = [...] last revised on 2018. Chol/HDL ratio 2 [facility] Blood Venous blood specimen / Unknown 10/03/2024 2:12 PM CDT 10/03/2024 9:01 PM CDT us Liat Donaldson MD LAB BLOOD ORDERABLES Final R esult [facility] [id number] Department [place] [address] * (ABNORMAL) Comprehensive metabolic panel (10/03/2024 2:12 [...] Calcium 9.8 8.5 - 10.3 mg/dL [facility] Bilirubin, total 0.4 0.1 - 1.2 mg/dL [facility] Protein, pl 7.2 6.5 - 8.5 g/dL [facility] Albumin 4.3 3.5 - 5.0 g/dL [facility] Alk phos 59 40 - 130 Units/L [facility] ALT 15 7 - 45 Units/L [facility] Comment:Lipemia present. Res ults may be affected. AST 36 10 - 45 Units/L [facility] Comment:Lipemia present. Res ults may be affected. Blood Venous blood specimen / Unknown 10/03/2024 2:12 PM CDT 10/03/2024 9:01 PM CDT us Liat Donaldson MD LAB BLOOD ORDERABLES Final R esult [facility] [id number] Department [place] [address] * Albumin Creatinine Ratio, Urine (10/30/2023 11:03 AM CDT) Albumin Ur 22.2 mg/L Comment: Interpretive Data No reference range established. Current interpretive data was last revised 2018. Creatinine Ur 95.5 mg/dL [facility] Comment: Interpretive Data No reference range established. Current interpretive data was last revised 2018. Albumin Creatinine Ratio, Ur 23 1 - 29 mg/g [facility] Urine 10/30/2023 11:0 3 AM CDT 10/30/2023 2:32 PM CDT us Kelsy Carpenter NP LAB URINE ORDERABLES Berta l Result [facility] [address] Department [place] [address] from Last 3 Months or Most Recently Relevant to Health Maintenance Insurance MEDICARE [facility] [employer] [facility] [employer] MEDICARE Care Teams Cost And Sales Record Supervisor Relationship Specialty Start Date End Date Liat Donaldson MD PCP - General 10/20/16
== END 2024-11-20 09:58 | disposition home or self-care (01) ==
PROVIDERS: PCP Internal Medicine; Visit Provider Internal Medicine
DX: Z12.31 Encounter for screening mammogram for malignant neoplasm of breast (principal)
CPT/HCPCS: 77063; 77067

== ENCOUNTER 2024-11-28 14:14 | Outpatient (CLI) | payer MEDICARE, BC, SELFPAY ==
--- NOTE | ~2024-11-28 | DEXA_ITS ---
Bone Density Report Name: NIKO LADD Age: 74 Sex: Female Ethnicity: White Date of : 1950 Indication: postmenopausal; screening for osteoporosis; parental hip fracture; height loss; history of glucocorticoids; hysterectomy; rheumatoid arthritis; Referring Provider: LIAT PANIAGUA Study: Bone densitometry was performed. Exam Date: November 28, 2024 Accession number: [id number] Bone Density: Region BMD T-score Z-score Classification AP Spine(L2, L3, L4) 1.454 3.4 5.9 Normal Femoral Neck (Left) 0.860 0.1 2.2 Normal Total Hip (Left) 1.018 0.6 2.4 Normal Femoral Neck (Right) 0.874 0.2 2.3 Normal Total Hip (Right) 0.926 -0.1 1.6 Normal Total Hip Mean 0.972 0.3 2.0 Normal World Health Organization criteria for BMD impression classify patients as: Normal (T-score at or above -1.0), Osteopenia (T-score between -1.0 and -2.5), or Osteoporosis (T-score at or below -2.5). 10-year Fracture Risk: FRAX not reported because: All T-scores for Spine Total, Hip Total, Femoral Neck at or above -1.0 Clinical Information Provided by Patient: Parent has had a hip fracture Has taken Glucocorticoids Has rheumatoid arthritis Has used the following medications: Vitamin D, Calcium Has the following medical conditions: Hysterectomy Patient maximum height was 66 Menopause Age: 50 No regular weight bearing exercise Drinks caffeinated beverages Onset of menses at age 11 Number of children 3 Impression: The patient has normal bone mass. The patient has risk factors, including: parental hip fracture, history of glucocorticoid therapy. Discussion: BONE DENSITY IS ABOVE THE MINIMUM DESIRABLE LEVEL AT ALL SKELETAL SITES TESTED. This patient?s bone mineral density is above the minimum desirable level (T-score -1.0 or better) at all sites measured. The patient should follow a healthful lifestyle (good nutrition with adequate calcium and vitamin D, and appropriate weight-bearing exercise). Follow-Up: Consider repeating this study in 5 years or sooner if there is some new clinical indication. Reported by: LAMIN on 11/28/2024 2:50:00 PM. Reviewed, dictated and finalized at location A.
--- OUTSIDE RECORDS SUMMARY | 2024-11-28 14:18 | XMS_ITS | Data Portability ---
[facility] [address] [place] [address] Care Team Providers Care Supervisor Molding Name Role Phone LIAT DONALDSON Primary Care Provider SULE[facility] De Ionizer Operator ZACHARY TRIPLETT X Ray Developer BEVERLEY RAMIREZ Neurologist LINA MÉNDEZ Magazine Writer Assessment Encounter Date Assessment Date Assessment LastModified by Organization Details LastModified Time 01/31/2024 01/31/2024 agree with use of diabetic shoes. Chronic medical problems have been discussed most recent blood work has been reviewed management of problems and assessment and plan have been discussed follow up with me in 3-4 months [email or web address] Not available 02/23/2024 23:55:03 02/07/2024 02/07/2024 she will keep her regular follow-up right now things not have bad and she is seeing Rheumatology in the next week [email or web address] Not available 02/23/2024 11:10:56 06/05/2024 06/05/2024 healthy lifestyle care instructions diastolic of 82 she does hurt today I do not think we need to do anything but further watch that. Other medicines we will continue follow up 4 months [email or web address] Not available 07/17/2024 22:37:28 06/16/2024 06/16/2024 screenings and work sheet checklist discussed all questions were answered. Screenings and immunizations ordered where patient agreeable and appropriate. We will see me at her regularly scheduled appointment [email or web address] Not available 06/19/2024 15:12:44 10/02/2024 10/02/2024 continue current therapy blood work has been ordered healthy lifestyle care instructions follow up in 3-4 months [email or web address] Not available 10/04/2024 22:10:23 Plan of Treatment Reminders Order Date Submit Date Provider Last Modified By Organization Details Last Modified Time Details Appointments ANY 15 2024 11:00A M Liat Donaldson MD Not available Not available Not available Lab CMP, serum or plasma [address] [facility] [place], [address], [place], [address], 10/04/2024 13:23:28 CBC w/ auto diff [address] [facility] [place], [address], [place], [address], 10/08/2024 14:10:03 lipid panel, serum [address] [facility] [place], [address], [place], [address], 10/08/2024 14:10:03 TSH + free T4, serum [address] [facility], [address], [address], [place], [address], 10/08/2024 14:10:03 T3, free, serum or plasma [address] [facility] [place], [address], [address], [place], [address], 10/08/2024 14:10:03 HbA1c (hemog lobin A1c), blood [address] [facility] [place], [address], [address], [place], [address], 10/08/2024 14:10:03 HbA1c (hemog lobin A1c), blood 2023 024 [email or web address] In-Office Order, Internal Use Only DO Not Attach Compendium DO Not Attach Compendium, Do Not Delete/merge, [id number] 01/31/2024 14:57:13 Referral None record ed. Procedures None record ed. Surgeries None record ed. Imaging bone densit y 2023 024 [facility], [address] [facility], [address], [address], 11/20/2024 14:27:43 Medication Orders Ozempi c 0.25 mg or 0.5 mg (2 mg/3 mL) subcut aneous pen inject or 2024 025 aure [facility], [facility], [place], [address], 11/20/2024 14:56:22 Patient TargetsNo targets recorded. Patient Instructions Encounter Date Encounter Id Patient Instructions Last Modified By Organization Details Last Modified Time 06/05/2024 [id number] A healthy lifestyle: care instructions [email or web address] Not available 07/17/2024 22:37:53 06/16/2024 [id number] preventing falls : care instructions [email or web address] Not available 06/16/2024 14:15:22 Medicare [place] [facility] Preventive Checklist Not available 06/16/2024 14:15:22 10/02/2024 [id number] A healthy lifestyle: care instructions Not available 10/02/2024 13:27:16 Reason for Referral None Reported. Results Created Date Observation Date Name Description Value Unit Range Abnormal Flag Note LastModifiedBy Organization Detail LastModifiedTime 01/31/2001/31/2024 HbA1c (hemo globi n A1c), blood HbA1c 4.9 Not Available In-Office Order Internal Use Only DO Not Attach Compendium DO Not Attach Compendium, Do Not Delete/merge, [id number] 01/31/2024 14:09:58 06/30/20 24 06/30/2024 Hemog lobin [...] bilat eral No observ ation record ed. [address], [place], [address], 02/08/2024 15:42:14 02/05/20 24 02/05/2024 XR, hip, bilat eral No observ ation record ed. [address], [place], [address], 02/08/2024 15:42:15 06/10/20 24 06/10/2024 XR, chest , 2 view No observ ation record ed. [facility] [address] [place] [address] [address], [place], [address], 06/25/2024 11:04:15 06/10/20 24 06/10/2024 XR, chest , 2 view No observ ation record ed. [facility] [address] [place] [address] [address], [place], [address], 06/16/2024 12:31:33 11/21/19 25 11/20/2024 MAMMO , scree destini, digit al, bilat eral No observ ation record ed. [place] [address], [place], [address], 11/21/2024 09:06:13 Result Notes None recorded. Problems Name Problem SNOMED Code Status Onset Date Resolution Date Notes Provider Name and Address Organization Details Recorded Time Type 2 diabetes mellitus 97529174 Active 2023 [place] - [facility] 4 13:41:38 Obstructive sleep apnea syndrome 08828389 Active 2023 Mike Cali MA [place], [place] - [facility] 4 13:41:56 Dyslipidemia 822701738 Active 2023 [place] [facility] 13:44:31 Obesity 015384436 Active 2023 [place] [facility] 4 13:45:12 Hypertensive disorder 60314718 Active 2023 [place] [facility] 4 13:45:20 Ankylosing spondylitis 9273324 Active 2023 [place] [facility] 4 13:45:29 Hyponatremia 13749661 Active 2023 [place] [facility] 4 13:45:36 Neuropathy due to diabetes mellitus 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 Procedures Surgical History Date Name Laterality Status Provider Name and Address Organization Details Recorded Time Back Surgery completed HOME [facility] 10/03/2023 12:32:21 preparation of bowel for procedure completed HOME Parikh SILeonel 10/03/2023 12:34:32 Tonsillectomy completed HOME Parikh SIJACEY 10/03/2023 12:34:42 Total hysterectomy completed HOME [facility] SIJACEY 10/03/2023 12:34:52 thumb surgery completed [facility] [place] [facility] 10/03/2023 13:46:34 Imaging Results Imaging Date Name Status LastModified by Organiz ation Details LastModified Time 02/05/2024 XR, hip, bilateral completed [place] [address] [facility] [address], [place], [address], 02/08/2024 15:42:14 02/05/2024 XR, hip, bilateral completed [place] [address] [facility] [address], [place], [address], 02/08/2024 15:42:15 06/10/2024 XR, chest, [address] [facility] [address] [facility] [address], [place], [address], 06/25/2024 11:04:15 06/10/2024 XR, chest, [address] [facility] [address] [facility] [address], [place], [address], 06/16/2024 12:31:33 11/20/2024 MAMMO, screening, digital, bilateral completed [facility] [address] [facility] [address], [place], [address], 11/21/2024 09:06:13 Procedure Notes None recorded. Medical Equipment None Reported. Allergies Allergen ID Allergen Name Allergen Category Reaction Reaction Severity Criticality Documentation Date Start Date Code Code System Note Provider Name and Address Organization Details Recorded Time 081963 Cipro medicatio n nausea moderate Not available 10/03/202339296 [address] [place] - [place] 4 12:26:20 482924 cefdinir medicatio n Not available Not available Not available 10/02/20242007 05574 RxNorm unrec ogniz ed react ion (text : Unkno wn, code: 87009 [id number]) (from [facility]) HOME [place], [place] - [facility] 5 12:08:50 289119 ciproflox acin medicatio n nausea Not available [facility] 10/02/20242012 2551 RxNorm Nely Rubio MA [place], [place] - [facility] 5 12:08:53 Medications Name [...] (2 mg/3 mL) subcutaneou s pen injector inject 0.5mg weekly 2024 active Not Available Not Available Not Avai lable Omnipod 5 G6-G7 Pods (Gen 5) subcutaneou [...] /min 96 % 96 % 35.6 kg/m2 90053.2 g 130 mm[Hg] 70 mm[Hg] Deedee Boss [place] - [facility] 4 14:18:49 Date Recorded Body height Body mass index (BMI) Body weight Heart rate Oxygen saturation Oxygen saturation in Arterial blood by Pulse oximetry Systolic blood pressure Diastolic blood pressure Provider Name and Address Organization Details Last Updated DateTime 4 165.1 cm 36.3 kg/m2 85834.5 7 g 82 /min 97 % 97 % 140 mm[Hg] 66 mm[Hg] Holly Sanders MA [place] - [facility] 4 16:35:35 Date Recorded Body height Body mass index (BMI) Body weight Heart rate Oxygen saturation Oxygen saturation in Arterial blood by Pulse oximetry Systolic blood pressure Diastolic blood pressure Provider Name and Address Organization Details Last Updated DateTime 4 165.1 cm 34.1 kg/m2 54609.4 4 g 72 /min 98 % 98 % 132 mm[Hg] 82 mm[Hg] Stephanie Vergara MA [place] - [facility] 4 14:24:08 Date Recorded Body height Body mass index (BMI) Body weight Heart rate Oxygen saturation Oxygen saturation in Arterial blood by Pulse oximetry Systolic blood pressure Diastolic blood pressure Provider Name and Address Organization Details Last Updated DateTime 4 165.1 cm 34.2 kg/m2 76005.2 3 g 98 /min 97 % 97 % 116 mm[Hg] 60 mm[Hg] Nely Rubio MA [facility] 4 11:58:12 Date Recorded Pain severity - 0-10 verbal numeric rating [Score] - Reported Provider Name and Address Organization Details Last Updated DateTime 06/16/2024 2 Izzy Boswell [facility] 06/16/2024 12:02:50 Date Recorded Body height Body mass index (BMI) Body weight Heart rate Oxygen saturation Oxygen saturation in Arterial blood by Pulse oximetry Systolic blood pressure Diastolic blood pressure Provider Name and Address Organization Details Last Updated DateTime 165.1 cm 33.3 kg/m2 32529.4 7 g 82 /min 96 % 96 % 110 mm[Hg] 64 mm[Hg] Nely Rubio MA [facility] 12:08:33 Social History Question Answer Notes LastModified by Organizat ion Details LastModified Time Tobacco Smoking Status Former Smoker quit around 1994 Izzy Boswell [facility] 06/16/2024 12:05:48 Do You Have An Advance [...] 7 Days, How Much Pain Have You [place]? Some Information not available 06/16/2024 In General, [...] Past 7 Days, How Often Have You [place] Sleepy In The Daytime? Always Naps Daily [...] Anxious, Or Unable To Sleep At Night)? [id number] Information not available 06/16/2024 Do You Use [...] Skin Problems N Anemia N Heart Attack (NH) N Anxiety Disorder N Diabetes Y Muscle, [...] Influenza, high-dose, quadrivalent, PF 3 completed Izzy [place], [place] [facility] 06/13/2024 10:40:13 Influenza, high-dose, quadrivalent, PF 2 completed [place] [facility] 06/13/2024 10:40:13 Influenza, high-dose, quadrivalent, PF 1 completed [place] [facility] 06/13/2024 10:40:13 Influenza, high-dose, quadrivalent, PF 9 completed [place] [facility] 06/13/2024 10:40:13 Influenza, adjuvanted, quadrivalent, PF 0 completed [place] [facility] 06/13/2024 10:40:13 COVID-19, mRNA, LNP-S, PF, 100 mcg/0.5mL dose or 50 mcg/0.25mL dose 1 completed Izzy [place] [facility] 06/13/2024 10:40:13 COVID-19, mRNA, LNP-S, PF, 100 mcg/0.5mL dose or 50 mcg/0.25mL dose 2 completed [place] [facility] 06/13/2024 10:40:13 COVID-19, mRNA, LNP-S, PF, 100 mcg/0.5mL dose or 50 mcg/0.25mL dose 1 completed [place] [facility] 06/13/2024 10:40:13 COVID-19, mRNA, LNP-S, PF, 100 mcg/0.5mL dose or 50 mcg/0.25mL dose 1 completed [place] [facility] 06/13/2024 10:40:13 COVID-19, mRNA, LNP-S, bivalent, PF, 50 mcg/0.5 mL or 25mcg/0.25 mL dose 3 completed Iz[place] [facility] 06/13/2024 10:40:13 COVID-19, mRNA, LNP-S, bivalent, PF, 50 mcg/0.5 mL or 25mcg/0.25 mL dose 2 completed [place] [facility] 06/13/2024 10:40:13 RSV, bivalent, protein subunit RSVpreF, diluent reconstituted, 0.5 mL, PF 3 completed [place] [facility] 06/13/2024 10:40:13 COVID-19, mRNA, LNP-S, PF, pamela-sucrose, 30 mcg/0.3 mL 3 completed [place] [facility] 06/13/2024 10:40:13 pneumococcal polysaccharide PPV23 5 completed [place] [facility] 06/13/2024 10:40:13 influenza, unspecified formulation 4 completed [place] [facility] 06/13/2024 10:40:13 Pneumococcal conjugate PCV 13 5 completed [place] [facility] 06/13/2024 10:40:13 zoster live 4 completed [place] [facility] 06/13/2024 10:40:13 Influenza, high-dose, trivalent, PF 8 completed [place] [facility] 06/13/2024 10:40:13 Influenza, high-dose, trivalent, PF 9 completed [place] [facility] 06/13/2024 10:40:13 Influenza, high-dose, trivalent, PF 7 completed [place] [facility] 06/13/2024 10:40:13 Influenza, high-dose, trivalent, PF 8 completed [place] [facility] 06/13/2024 10:40:13 Influenza, high-dose, trivalent, PF 6 completed [place] [facility] 06/13/2024 10:40:13 Influenza, high-dose, trivalent, PF 5 completed [place] [facility] 06/13/2024 10:40:13 Influenza, split virus, trivalent, preservative 2 completed [place] [facility] 06/13/2024 10:40:13 influenza nasal, unspecified formulation 4 completed Iz[place] [facility] 06/16/2024 12:04:41 COVID-19, mRNA, LNP-S, PF, pamela-sucrose, 30 mcg/0.3 mL 4 completed Nely Rubio [place] [facility] 10/02/2024 09:15:54 Past Encounters Encounter ID Performer Location Encounter Start Date Encounter Closed Date Diagnosis/Indication Diagnosis SNOMED-CT Code Diagnosis ICD10 Code Diagnosis Note [id number] Liat Donaldson MD [facility] ([facility]ult [facility]) [address] [place] [address] 10/03/2023 12:10:28 10/03/2023 12:57:56 Pain of right shoulder joint 5583344647 8133823 M25.511 Type 2 lindsay betes mellitus 70735648 E11.41 Obstructiv e sleep apnea syndrome 08868351 G47.33 Diabetic p eripheral neuropathy 557165863 E11.40 Obesity 158468931 E66.9 Essential hypertension 74222781 I10 Ankylosing spondylitis 2110601 M45.9 Hyponatremia 11015332 E8 7.1 Right foot drop 99492244 01 20778 M21.743 [id number] Liat Donaldson MD [facility] [employer] [address] [place] [address] 01/31/2024 13:46:42 01/31/2024 15:28:24 Type 2 diabetes mellitus 67657100 E11.41 Hypertensive disorder 38 745556 I10 Neuropathy due to diabetes mellitus 506642878 E11.40 Dyslipidemia 994013667 E 78.5 Ankylosing spondylitis 7721097 M45.9 [id number] Liat Donaldson MD [facility] [employer] - [place] [address] [place] [address] 02/07/2024 16:04:44 02/07/2024 17:09:30 Pain of left hip joint 9789814105 03932 M25.186 [id number] Liat Donaldson MD [facility] - [place] [address] [place] [address] 06/05/2024 14:07:32 06/05/2024 15:09:43 Obesity 933972991 E66.9 Hypertensive disorder 38 818583 I10 Dyslipidemia 694649935 E 78.5 Neuropathy due to diabetes mellitus 022921519 E11.40 Type 2 lindsay betes mellitus 89002086 E11.41 [id number] Liat Donaldson MD [facility] - [place] [address] [place] [address] 06/16/2024 11:45:19 06/16/2024 13:31:23 Adult health examination 986607551 Z00.00 Health Risk Assessment collected and reviewed [facility] 764 [address]503 Z78.0 [id number] Liat Donaldson MD [facility] - [place] [address] [place] [address] 10/02/2024 11:46:33 10/02/2024 13:18:07 Body mass index 30+ - obesity 139669188 Z68.33 Obesity 937668156 E66.9 Hypertensive disorder 38 763811 I10 Type 2 lindsay betes mellitus 70763589 E11.41 Hyponatremia 83597426 E8 7.1 Ankylosing spondylitis 8307818 M45.9 Neuropathy due to diabetes mellitus 418771500 E11.40 Dyslipidemia 375517114 E 78.5 Obstructiv e sleep apnea syndrome 18243372 G47.33 Health Concerns Section Related Observation LastModified by Organization Detai ls LastModified Time None Recorded Concern Status LastModified by Organization Details LastModified Time None Recorded Advance Directives Directive Y: Payers Encounter Date Sequence Insurance Name Policy Number Policy Panda Covered Member ID Panda Member ID Guarantor Name 01/31/2024 2 [place] 106 Sebastian Murillo [id number] Valeria Murillo 01/31/2024 1 [place] Valeria N Murillo [id number] Valeria Murillo 02/07/2024 2 [place] 106 Sebastian Murillo [id number] Valeria Murillo 02/07/2024 1 [place] Valeria N Murillo [id number] Valeria Murillo 06/05/2024 2 [place] 106 Sebastian Murillo [id number] Valeria Murillo 06/05/2024 1 [place] Valeria N Murillo [id number] Valeria Murillo 06/16/2024 2 [place] 106 Sebastian Hanksez [id number] Valeria Murillo 06/16/2024 1 [place] Valeria N Murillo [id number] Valeria Murillo 10/02/2024 2 [place] 106 Sebastian Murillo [id number] Valeria Murillo 10/02/2024 1 [place] Valeria N Murillo [id number] Valeria Murillo Notes Date Note Type [...] that Liat Donaldson MD Attn: Accounting,[address] [facility], [place], [address], [facility] 02/23/2024 23:55:37 02/07/2024 text/html she was having s ome hip pain seems to be a little bit better today was on the left Liat Donaldson MD Attn: Accounting[address] [facility], [place], [address], [facility] 02/23/2024 11:11:18 06/05/2024 text/html dyslipidemia try ing to take her medicine follow low-fat diet hypertension blood pressure is controlled she is not having any problems there diabetes vacillates with her control Liat Donaldson MD Attn: Accounting, [address] , [place], [address], [facility] 07/17/2024 22:37:56 06/16/2024 text/html MAW 2Reported bypatient.Diet [...] the home;fire arms Liat Donaldson MD Attn: Accounting, [address] , [place], [address], [facility] 06/19/2024 15:12:58 10/02/2024 text/html following [...] dizziness Liat Donaldson MD Attn: Accounting[address] [place], [address], [facility] 10/04/2024 22:10:41 OBGyn Episode No OBEpisode recorded.
--- OUTSIDE RECORDS SUMMARY | 2024-11-28 14:19 | XMS_ITS | Data Portability ---
Author Organization [place] - [facility], Main Office Address [address] [place] [address] Care Team Providers Care Manager Personnel Selection Name Role Phone LIAT DONALDSON Primary Care Provider [phone] LIAT DONALDSON Referring Provider Assessment Encounter Date Assessment Date Assessment LastModified by Organization Details LastModified Time 10/08/2023 10/08/2023 Assessment: Severe OSAHS, AHI = 33 Hypertension Plan: The following were reviewed and explained to the patient: [facility] home sleep study 11/29/22 AHI = 33 [facility] titration sleep study 01/17/23 ResMed medium AirFit [...] carrier. Patient will setup an appointment with [facility] for supplies and pressure adjustments. A [...] further management. Follow-up: 3 months, December 2023 [facility] Not available 10/08/2023 14:37:59 01/08/2024 01/08/2024 Assessment: Severe OSAHS, AHI = 33 Plan: The following were reviewed and explained to the patient: [facility] home sleep study 11/29/22 AHI = 33 [facility] titration sleep study 01/17/23 ResMed medium AirFit [...] carrier. Patient will setup an appointment with [facility] for supplies and pressure adjustments. A [...] were reviewed and explained to the patient: [facility] home sleep study 11/29/22 AHI = 33 [facility] titration sleep study 01/17/23 ResMed medium AirFit [...] supplementation: none Keep EPR +2 to +3 time clerk. Keep humidifier on automatic mode. Keep tube [...] carrier. Patient will setup an appointment with [facility] for supplies and pressure adjustments. A [...] were reviewed and explained to the patient: [facility] home sleep study 11/29/22 AHI = 33 [facility] titration sleep study 01/17/23 ResMed medium AirFit [...] off. Oxygen supplementation: none Keep EPR +3 time clerk. Keep humidifier on automatic mode. Keep tube [...] carrier. Patient will setup an appointment with [facility] for supplies and pressure adjustments. A [...] were reviewed and explained to the patient: [facility] home sleep study 11/29/22 AHI = 33 [facility] titration sleep study 01/17/23 ResMed medium AirFit [...] minutes. Oxygen supplementation: none Keep EPR +3 time clerk. Keep humidifier on automatic mode. Keep tube [...] carrier. Patient will setup an appointment with [facility] for supplies and pressure adjustments. A [...] view [facility] [address] [facility] [place] [address] Patialana t Name: VALERIA LADD Access ion #: [id number] Sex: F : 1949 6 Dictat ed By: Shemar Bbacock Attend ing Physic anabel: ALEXX DONALDSON Orderi [...] 2023 15:35: 22 PM Page 1 [email or web address] [facility] (Imaging) [address] [place], [address], 02/05/2024 09:05:14 Result Notes None recorded. 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 720676989 Active 2018 Not Available [facility] 4 13:35:34 Malaise and fatigue 660060710 Completed Not Available [facility] 3 04:49:30 Knee pain Completed Not Available [facility] 3 04:49:30 Pain in right knee Completed Not Available [facility] 3 04:49:30 Bronchit is 68309204 Completed Not Available [facility] 3 04:49:30 Blood in urine 42277321 Completed Not Available [facility] 3 04:49:30 Dyslipid emia 592067169 Active 2018 Not Available [facility] 4 13:35:34 Acute urinary tract infectio n 352405334 Completed Not Available [facility] 3 04:49:30 Pain of shoulder region 82205057 Completed Not Available [facility] 3 04:49:30 [facility] hyperten devan 34683714 Active 2016 Not Available [facility] 4 13:35:34 Disorder of skin and/or subcutan eous tissue 05395336 Completed Not Available [facility] 3 04:49:31 Ankylosi ng spondyli tis 6306188 Active 2020 diagnose d in July 2020 by Rheumato logy Not Available [facility] 4 13:35:34 Notes:Medical History: Depre ssion Bilateral [...] Time 10/26/19 17 Colonoscopy completed Not Available [facility] 09/21/19 04:43:10 08/18/19 12 Most Recent Bone Density completed Not Available [facility] 09/20/2022 04:43:08 Laminectomy completed Not Available [facility] 09/20/2022 04:43:10 injection of knee completed Not Available [facility] 09/20/2022 04:43:10 Cyst Removal completed SIVAN Horan [facility] - [facility] 10/10/2022 11:47:33 Imaging Results Imaging Date Name Status LastModified by Organiz ation Details LastModified Time 11/29/2023 XR, shoulder, 2 or more view completed [email or web address] [facility] (Imaging) [address] [place], [address], 02/05/2024 09:05:14 Procedure Notes None recorded. Medical Equipment None Reported. Allergies Allergen ID Allergen Name Allergen Category Reaction Reaction Severity Criticality Documentation Date Start Date Code Code System Note Provider Name and Address Organization Details Recorded Time 7168 Cipro medicatio n nausea moderate Not available 09/20/2022201256 3 RxNorm Not Available [facility] 04:56:40 Medications Name Sig Start Date [...] propionate 50 mcg/actuati on nasal spray,suspe nsion Buckner 1 spray every day by intranasa l [...] Not Available Not Available Not Available biotin 19054 mcg 1 tablet daily 01/31 completed Not [...] Not Available Not Available Not Available Fluzone 5982-3375 45 mcg (15 mcg x 3)/0.5 mL intramuscul ar suspension TO BE ADMINISTE RED BY PHARMACIS T FOR IMMUNIZAT ION active Not Available Not Available No t Available Simponi ARIA 09/29 completed Not Available Not Available Not Available Fluzone 1379-3056 (PF) 45 mcg (15 mcg x 3)/0.5 [...] Updated DateTime 4 167.64 cm 35.3 kg/m2 96924.2 9 g 92 /min 95 % 95 % Yissel Asher MA [employer] [facility] 4 14:03:16 Date Recorded Body temperature Heart rate Respiratory rate Systolic blood pressure Diastolic blood pressure Provider Name and Address Organization Details Last Updated DateTime 4 97.2 [degF] 92 /min 14 /min 144 mm[Hg] 76 mm[Hg] Gilberto Mercedes MD [address] [facility] [address], [place], [address], [employer] [facility] 4 14:09:48 Date Recorded Body height Body mass index (BMI) Body weight Body temperature Heart rate Oxygen saturation Oxygen saturation in Arterial blood by Pulse oximetry Systolic blood pressure Diastolic blood pressure Provider Name and Address Organization Details Last Updated DateTime 4 167.64 cm 35 kg/m2 81003.5 4 g 97 [degF] 73 /min 95 % 95 % 130 mm[Hg] 70 mm[Hg] Terese Young CMA [facility] [employer] [facility] 14:09:21 Date Recorded Heart rate Respiratory rate Provider N monika and Address Organization Details Last Updated DateTime 01/08/2024 73 /min 15 /min Gilberto Mercedes MD [address] [place] [address], [place], [address], [facility] [employer] [facility] 01/08/2024 14:38:30 Date Recorded Body height Body mass index (BMI) Body weight Body temperature Heart rate Oxygen saturation Oxygen saturation in Arterial blood by Pulse oximetry Systolic blood pressure Diastolic blood pressure Provider Name and Address Organization Details Last Updated DateTime 4 167.64 cm 34.2 kg/m2 82676.5 8 g 98.3 [degF] 73 /min 95 % 95 % 126 mm[Hg] 68 mm[Hg] Sarah Rubin MA [facility] [employer] [facility] 14:19:03 Date Recorded Heart rate Respiratory rate Provider N monika and Address Organization Details Last Updated DateTime 04/08/2024 73 /min 15 /min Gilberto Mercedes MD [address], [place] [address], [place], [address], [facility] [employer] [facility] 04/08/2024 14:29:33 Date Recorded Body height Body mass index (BMI) Body weight Body temperature Heart rate Systolic blood pressure Diastolic blood pressure Provider Name and Address Organization Details Last Updated DateTime 4 167.64 cm 33.1 kg/m2 27748.1 5 g 97.8 [degF] 84 /min 122 mm[Hg] 72 mm[Hg] Yissel Asher MA [facility] [employer] [facility] 14:10:41 Date Recorded Oxygen saturation Oxygen saturation in Arterial blood by Pulse oximetry Heart rate Respiratory rate Provider Name and Address Organization Details Last Updated DateTime 07/09/2024 98 % 98 % 84 /min 14 /min Gilberto Mercedes MD [address], [place] [address], [place], [address], [facility] [employer] [facility] 14:26:32 Date Recorded Body height Body mass index (BMI) Body weight Body temperature Heart rate Oxygen saturation Oxygen saturation in Arterial blood by Pulse oximetry Systolic blood pressure Diastolic blood pressure Provider Name and Address Organization Details Last Updated DateTime 167.64 cm 33.1 kg/m2 04808.4 4 g 98.1 [degF] 74 /min 97 % 97 % 134 mm[Hg] 74 mm[Hg] Yissel Asher MA [place] [employer] [facility] 10:47:05 Date Recorded Heart rate Respiratory rate Provider N monika and Address Organization Details Last Updated DateTime 09/15/2024 74 /min 15 /min Gilberto Mercedes MD [address] [facility], [facility] [address], [place], [address], [place] [employer] [facility] 09/15/2024 11:15:21 Social History Question Answer Notes LastModified by Organization Details LastModified Time Tobacco Smoking Status Former Smoker quit 1994 Not Available [facility] 09/20/2022 04:42:47 Do You Have An Advance Directive? Yes MIGRATION.0301 371963 Information not available 09/20/2022 What Is Your Level Of Alcohol Consumption? Occasional MIGRATION.0301 096599 Information not available 09/20/2022 Do You Wear A Helmet When Biking? No MIGRATION.0301 830347 Information not available 09/20/2022 Are You Blind Or Do You Have Difficulty Seeing? No MIGRATION.0301 449731 Information not available 09/20/2022 What Is Your Level Of Caffeine Consumption? Heavy MIGRATION.0301 302837 Information not available 09/20/2022 How Much Tobacco Do You Chew? None MIGRATION.0301 975580 Information not available 09/20/2022 In The 14 Days Before Symptom Onset, Have You Had Close Contact With A Laboratory-conf irmed COVID-19 While That Case Was Ill? No MIGRATION.0301 369300 Information not available 09/20/2022 In The 14 Days Before Symptom Onset, Have You Had Close Contact With A Person Who Is Under Investigation For COVID-19 While That Person Was Ill? No MIGRATION.0301 543435 Information not available 09/20/2022 Are You Currently Employed? No Information not available 07/09/2024 Are You Deaf Or Do You Have Serious Difficulty Hearing? Yes Has Hearing Aids MIGRATION.0301 891265 Information not available 09/20/2022 What Type Of Diet Are You Following? REGULAR Sometimes DM Diet MIGRATION.0301 683978 Information not available 09/20/2022 Which Illicit Or Recreational Drugs Have You Used? None MIGRATION.0301 491315 Information not available 09/20/2022 Do You Or Have You Ever Used E-cigarettes Or Vape? Never Used Electronic Cigarettes MIGRATION.0301 960550 Information not available 09/20/2022 Do You Have An Electrostatic Air Filter? Yes Information not available 01/31/2023 What Is Your Occupation? Retired MIGRATION.0301 342463 Information not available 09/20/2022 Have You Been Exposed To Chemicals Or Toxins? Yes Information not available 01/31/2023 Have There Been Any Changes To Your Family Or Social Situation? No MIGRATION.0301 696087 Information not available 09/20/2022 What Is The Fluoride Status Of Your Home? Unknown MIGRATION.0301 957008 Information not available 09/20/2022 When Did You Quit Smoking? 16+yearssincelast cigarette MIGRATION.0301 274533 Information not available 09/20/2022 Are There Any Guns Present In Your Home? Yes MIGRATION.0301 955273 Information not available 09/20/2022 Do You Have A Humidifier? Yes Information not available 01/31/2023 Do You Use Insect Repellent Routinely? No MIGRATION.0301 639289 Information not available 09/20/2022 Where [facility] You [facility] MIGRATION.0301 842408 Information not available 09/20/2022 Do You Have A Medical Power Of Narcotics And Vice Detective? Yes MIGRATION.0301 713958 Information not available 09/20/2022 Do You Have Moisture Problems In Your Home? No Information not available 01/31/2023 What Was The Date Of Your Most Recent Tobacco Screening? 09/15/2024 Information not available 09/15/2024 Have You Ever Been Counseled For Unhealthy Alcohol Use? No MIGRATION.0301 047472 Information not available 09/20/2022 Do You Have Any Pets? Yes MIGRATION.0301 425549 Information not available 09/20/2022 What Is Your Relationship Status? MIGRATION.0301 189584 Information not available 09/20/2022 Do You Use Your Seat Belt Or Car Seat Routinely? Yes MIGRATION.0301 855279 Information not available 09/20/2022 Do You Have Smoke And Carbon Monoxide Detectors In Your Home? Yes MIGRATION.0301 737591 Information not available 09/20/2022 Are You Passively Exposed To Smoke? No MIGRATION.0301 182191 Information not available 09/20/2022 Do You Or Have You Ever Used Smokeless Tobacco? Never Used Smokeless Tobacco MIGRATION.0301 592477 Information not available 09/20/2022 Are There Any Smokers In Your House? No MIGRATION.0301 315574 Information not available 09/20/2022 Do You Feel Stressed (tense, Restless, Nervous, Or Anxious, Or Unable To Sleep At Night)? [id number] MIGRATION.0301 929606 Information not available 09/20/2022 Do You Use Any Illicit Or Recreational Drugs? Yes MIGRATION.0301 651231 Information not available 09/20/2022 Do You Use Sunscreen Routinely? Yes MIGRATION.0301 750533 Information not available 09/20/2022 Has Tobacco Cessation Counseling Been Provided? No MIGRATION.0301 520114 Information not available 09/20/2022 Have You Recently Traveled Abroad? No MIGRATION.0301 741682 Information not available 09/20/2022 Have You Used IV Drugs? No Information not available 07/09/2024 Do You Have Any Dietary Restrictions? No MIGRATION.0301 257266 Information not available 09/20/2022 Do You Or Have You Ever Used Any Other Forms Of Tobacco Or Nicotine? No MIGRATION.0301 444206 Information not available 09/20/2022 Sex: Female Functional Status Question Answer Note LastModified by Organizat ion Details LastModified Time Do you have difficulty walking or climbing stairs? Yes MIGRATION.1690021 026 Information not available 09/20/2022 Do you have transportation difficulties? No MIGRATION.3954152 026 Information not available 09/20/2022 Are you able to walk? YESASSIST larrye MIGRATION.8831844 026 Information not available 09/20/2022 Do you have difficulty doing errands alone? No MIGRATION.2266942 026 Information not available 09/20/2022 Are you able to care for yourself? Yes MIGRATION.6370577 026 Information not available 09/20/2022 Do you have difficulty dressing or bathing? No MIGRATION.6701087 026 Information not available 09/20/2022 What is your exercise level? Occasional MIGRATION.0671661 026 Information not available 09/20/2022 Mental Status Question Answer Note LastModified by Organizat ion Details LastModified Time Do you have difficulty concentrating, remembering or making decisions? No MIGRATION.391844215 6 Information not available 09/20/2022 Family History Relationship Description Onset Age of this Age Resolved Age Notes LastModified by Organization Details LastModified Time Mother Hypertensive disorder MIGRATION.911 [id number] Not available 09/20/2022 04:43:16 Mother Alzheimer's disease [email or web address] Not available 01/07 13:55:50 Father Diabetes mellitus MIGRATION.374 2437122 Not available 09/20/2022 04:43:16 Father Malignant tumor of pancreas Not available 01/07 13:55:50 Son Hypercholest erolemia MIGRATION.584 [id number] Not available 09/20/2022 04:43:16 Medical History Condition Response NERVE DISEASE N BLINDNESS N RHEUMATIC FEVER N KIDNEY STONES N BLADDER PROBLEMS N MRSA N OTHER # 1 N POLIO N LUNG DISEASE/DISORDER N HISTORY OF DRUG ABUSE N COPD N RADIATION / CHEMOTHERAPY N Other # 2 N BLOOD DISEASES N EAR OR HEARING PROBLEMS N MUMPS N BOWEL PROBLEMS N DEPRESSION (INCLUDING POST ) N STROKE/TIA N ULCERS N BENIGN PROSTATIC HYPERPLASIA N MEASLES N HYPOTENSION N MYOCARDIAL INFARCTION N OBESITY N GERD/NAUSEA N ANEURYSM N URINARY/BLADDER/KIDNEY PROBLEMS N CORONARY ARTERY DISEASE (CAD) N ADDICTION CONCERNS N ENDOMETRIOSIS N Impotence N USE OF BLOOD THINNERS N SKIN [...] GLAUCOMA N FOOT PROBLEM N DIVERTICULITIS N CHICKENPOX N SLEEP APNEA N INFECTIOUS DISEASE N HEART ARRHYTHMIA N PROSTATE N INSOMNIA N HIGH CHOLESTEROL / HYPERLIPIDEMIA Y HYPERTHYROIDISM N EYE PROBLEMS N EDEMA N CHRONIC PAIN SYNDROME N HYPOTHYROIDISM N CAROTID BLOCKAGE N CONSTIPATION N BACK / NECK PROBLEMS N HAVE YOU BEEN HOSPITALIZED OR SEEN IN [facility] IN THE PAST YEAR ? N ATHEROSCLEROSIS N BREAST PROBLEMS N DIALYSIS N ECZEMA N OSTEOPOROSIS N ARTHRITIS N APPENDICITIS N DIABETES, TYPE Y BAD TEETH N ENT N HEARTBURN / REFLUX N AUTISM SPECTRUM DISORDER (ASD) N HEPATITIS / LIVER DISEASE N GOUT N SLEEP DISORDER N ALZHEIMER'S DISEASE N Brain Problems N HERPES N DEMENTIA N HEADACHES/MIGRAINES N SEIZURES/EPILEPSY N VASCULAR DISEASE N PACEMAKER N Blood Disorder N DIZZINESS N HEART DISEASE/HEART PROBLEMS N KIDNEY DISEASE N MULTIPLE SCLEROSIS N CARDIAC ARRHYTHMIA N CANCER: SPECIFY N ATRIAL FIBRILLATION N Gall Stones N [...] 50 mcg/0.25mL dose 2 completed Not Available [facility] 08/02/2023 13:35:35 COVID-19, mRNA, LNP-S, PF, 100 mcg/0.5mL dose or 50 mcg/0.25mL dose 1 completed Not Available [facility] 08/02/2023 13:35:35 COVID-19, mRNA, LNP-S, PF, 100 mcg/0.5mL dose or 50 mcg/0.25mL dose 1 completed Not Available [facility] 08/02/2023 13:35:35 COVID-19, mRNA, LNP-S, PF, 100 mcg/0.5mL dose or 50 mcg/0.25mL dose 1 completed Not Available [facility] 08/02/2023 13:35:35 Influenza, high-dose, quadrivalent, PF 0 completed Not Available [facility] 08/02/2023 13:35:34 Influenza, high-dose, quadrivalent, PF 9 completed Not Available [facility] 08/02/2023 13:35:35 Influenza, high-dose, trivalent, PF 8 completed Not Available [facility] 08/02/2023 13:35:35 Influenza, high-dose, trivalent, PF 7 completed Not Available [facility] 08/02/2023 13:35:35 Influenza, high-dose, trivalent, PF 6 completed Not Available [facility] 08/02/2023 13:35:35 Influenza, split virus, trivalent, preservative 2 completed Not Available [facility] 08/02/2023 13:35:35 Influenza, high-dose, quadrivalent, PF 1 completed Not Available [facility] 08/02/2023 13:35:35 Influenza, high-dose, trivalent, PF 5 completed Not Available [facility] 08/02/2023 13:35:35 influenza, unspecified formulation 4 completed Not Available [facility] 08/02/2023 13:35:35 zoster live 4 completed Not Available [facility] 08/02/2023 13:35:35 pneumococcal polysaccharide PPV23 5 completed Not Available [facility] 08/02/2023 13:35:35 Pneumococcal conjugate PCV 13 5 completed Not Available [facility] 08/02/2023 13:35:35 Past Encounters Encounter ID Performer Location Encounter Start Date Encounter Closed Date Diagnosis/Indication Diagnosis SNOMED-CT Code Diagnosis ICD10 Code Diagnosis Note [id number] Liat Donaldson MD [facility] Internal Med [facility] [address] [place] [address] 11/26/2020 00:00:00 12/12/2020 18:18:12 [id number] Liat [facility]dson [facility] [address] [place] [address] [place] [address] 01/04/2021 00:00:00 01/15/2021 17:11:26 [id number] Liat Donaldson MD [facility] [facility] [address] [place] [address] [place] [address] 05/03/2021 00:00:00 05/03/2021 22:17:03 [id number] Liat Donaldson MD [facility] [place] [address] [place] [address] [place] [address] 10/11/2021 00:00:00 10/11/2021 22:17:41 [id number] Liat Donaldson MD [facility] Internal Med [place] [address] [place] [address] y , [place] [address] 02/14/2022 00:00:00 02/14/2022 22:30:04 [id number] Liat Donaldson MD [facility] Internal Med [place] [address] [place] [address] y , [place] [address] 06/06/2022 00:00:00 06/06/2022 22:37:23 [id number] Liat Donaldson MD [facility] Internal Med [place] [address] [place] [address] y , [place] [address] 10/10/2022 11:26:40 10/10/2022 12:38:23 Sleep disorder 21346909 G47.9 Dyslipidemia 514997303 E 78.5 Essential hypertension 44556731 I10 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 [id number] Liat Donaldson MD [facility] Internal Med [place] [address] [place] [address] y , [place] [address] 01/30/2023 10:37:09 01/30/2023 11:34:39 Anxiety 31612881 F41.9 Ankylosing spondylitis 3182631 M45.0 Chronic pa inful neuropathy due to diabetes mellitus 453299166 E11.40 Dyslipidemia 790809662 E 78.5 Essential hypertension 44507457 I10 [id number] Gilberto Mercedes MD [facility] [address] [address] 01/31/2023 13:48:13 01/31/2023 14:58:52 Obstructive sleep apnea syndrome 20013981 G47.33 [id number] Gilberto Mercedes MD [facility] [address] [address] 03/22/2023 15:12:16 03/22/2023 20:43:58 Obstructive sleep apnea syndrome 66602595 G47.33 [id number] Gilberto Mercedes [facility] [address] [place] [address] 05/09/2023 13:57:06 05/09/2023 14:50:10 Obstructive sleep apnea syndrome 66057956 G47.33 [id number] Liat Donaldson MD [facility] [address] [facility] [address], [place] [address] 06/21/2023 15:10:53 06/21/2023 16:45:16 Essential hypertension 71737641 I10 Dyslipidemia 744427022 E 78.5 Chronic pa inful neuropathy due to diabetes mellitus 276698807 E11.40 Ankylosing spondylitis 7998428 M45.0 Urinary incontinence 165 231776 R32 [id number] Gilberto Mercedes [facility] [address] [place] [address] 07/09/2023 13:53:28 07/10/2023 08:43:11 Obstructive sleep apnea syndrome 06005899 G47.33 [id number] Gilberto Mercedes [facility] [address] [place] [address] 10/08/2023 13:50:46 10/09/2023 08:34:41 Obstructive sleep apnea syndrome 78169921 G47.33 [id number] Gilberto Mercedes MD [facility] [address] [place] [address] 01/08/2024 13:51:13 01/09/2024 08:58:46 Obstructive sleep apnea syndrome 90201665 G47.33 [id number] Gilberto Mercedes [facility] [address] [place] [address] 04/08/2024 13:57:07 04/09/2024 15:48:43 Obstructive sleep apnea syndrome 27065626 G47.33 [id number] Gilberto Mercedes [facility] [address] [place] [address] 07/09/2024 13:56:45 07/09/2024 15:37:17 Obstructive sleep apnea syndrome 28989914 G47.33 [id number] Gilberto Mercedes MD [facility] [address] [address] 0 09/15/2024 10:26:56 09/15/2024 11:31:32 Obstructive sleep apnea syndrome 29876803 G47.33 Health Concerns Section Related Observation LastModified by Organization Detai ls LastModified Time None Recorded Concern Status LastModified by Organization Details LastModified Time None Recorded Advance Directives Directive Y: Payers Encounter Date Sequence Insurance Name Policy Number Policy Panda Covered Member ID Panda Member ID Guarantor Name 10/08/2023 1 [place] Valeria N Ladd [id number] Valeria Sierra Ladd 10/08/2023 2 [place] 106 Sebastian Ladd [id number] Valeria Sierra Ladd 01/08/2024 1 [place] Valeria N Ladd [id number] Valeria Sierra Ladd 01/08/2024 2 [place] 106 Sebastian Ladd [id number] Valeria Sierra Ladd 04/08/2024 1 [place] Valeria N Ladd [id number] Valeria Sierra Ladd 04/08/2024 2 [place] 106 Sebastian Ayana Ladd [id number] Valeria Sierra Ladd 07/09/2024 1 [place] Valeria N Ladd [id number] Valeria Sierra Ladd 07/09/2024 2 [place] 106 Sebastian Ladd [id number] Valeria Sierra Ladd 09/15/2024 1 [place] Valeria N Ladd [id number] Valeria Sierra Ladd 09/15/2024 2 [place] 106 Sebastian Piña Lidia [id number] Valeria Ladd Notes Date Note Type Note Provider Name and Address Organization Details Recorded Time 10/08/2023 text/html Primary care/Ref erring provider: Liat Donaldson MD During the [facility] home sleep study on 11/29/22, AHI = [...] moderate chance of dozing. Gilberto Mercedes MD [address] [place] [address], [phone], [facility] 10/08/2023 14:38:08 01/08/2024 text/html Primary care/Ref erring provider: Liat Donaldson MD CC: When I open my mouth, I feel that the CPAP is so strong. During the [facility] home sleep study on 11/29/22, AHI = [...] chance of dozing. Gilberto Mercedes MD [address] [facility], [facility] [address], [place], [address], [place] [facility] 01/08/2024 14:39:22 04/08/2024 text/html Primary care/Ref erring provider: Liat Donaldson MD CC: When I open my mouth, I feel that the CPAP is so strong. During the [facility] home sleep study on 11/29/22, AHI = [...] moderate chance of dozing. Gilberto Mercedes MD [address] [place] [address], [phone], [facility] [employer] 04/08/2024 14:44:54 07/09/2024 text/html Primary care/Ref erring provider: Liat Donaldson MD During the [facility] home sleep study on 11/29/22, AHI = [...] slight chance of dozing. Gilberto Mercedes MD [address] [place] [address] [address], [place], [address], [place] [facility] [employer] 07/09/2024 14:42:07 09/15/2024 text/html Primary care/Ref erring provider: Liat Donaldson MD; Jaqueline Pollack MD During the [facility] home sleep study on 11/29/22, AHI = [...] moderate chance of dozing. Gilberto Mercedes MD [address] [place] [address], [place] [address], [place], [phone], [facility] [employer] 09/15/2024 11:30:15 OBGyn Episode No OBEpisode recorded.
--- OUTSIDE RECORDS SUMMARY | 2024-11-28 14:19 | XMS_ITS | Clinical Summary ---
Author Organization [facility] Address [address] [place] [phone] Care Team Providers Care Structures Engineer Name Role Phone Liat Donaldson MD Primary Care Provider [phone] Allergies Active Allergy Reactions Criticality Noted Date [...] 09/19/2022 Assessment & Plan (09/19/2022 10:36 AM RICE MILLING SUPERVISOR): Discussed healthy diet and importance of regular [...] therapy prescribed by her treating neurosurgeon in [place]. Further evaluation and management regarding the footdrop [...] 1 Assessment & Plan (06/30/2024 3:13 PM RICE MILLING SUPERVISOR): Chronic, stable Continue rosuvastatin 10 mg daily. Assessment & Plan (04/02/2024 3:35 PM CDT): Chronic, stable. Continue current medication including Hyzaar Assessment & Plan (10/30/2023 10:04 AM CDT): Chronic problem, well controlled on current Rosuvastatin 10mg. Last lipid panel: 08/22/23 LDL=67, TG=57. No changes at this time. Assessment & Plan (08/21/2023 1:32 PM RICE MILLING SUPERVISOR): Chronic, well controlled Update Lipid profile Continue Simvastatin Assessment & Plan (04/10/2023 10:12 AM CDT): Chronic problem, well controlled on current Rosuvastatin 10mg. Last lipid panel: 08/04/22 LDL=66, TG=49. No changes at this time. Assessment & Plan (01/16/2023 3:00 PM CDT): Chronic, well controlled Low fat Low cholesterol diet Exercise Continue statin therapy wit Rosuvastatin Assessment & Plan (09/19/2022 10:47 AM RICE MILLING SUPERVISOR): Chronic problem, well controlled on current Rosuvastatin 10mg. Last lipid panel: 08/04/22 LDL=66, TG=49. No changes at this time. Assessment & Plan (07/11/2022 4:02 PM RICE MILLING SUPERVISOR): Chronic, well controlled Low fat Low cholesterol [...] changes. Assessment & Plan (07/28/2021 3:56 PM RICE MILLING SUPERVISOR): Chronic problem. On statin therapy, no changes. [...] Crestor Assessment & Plan (09/21/2020 1:42 PM RICE MILLING SUPERVISOR): Goal of treatment , LDL cholesterol less [...] exercise Assessment & Plan (06/10/2020 3:43 PM RICE MILLING SUPERVISOR): Check lipid panel. Keep in consideration that [...] therapy Assessment & Plan (09/08/2019 9:40 AM RICE MILLING SUPERVISOR): At goal on current medications. Continue statin [...] changes. Assessment & Plan (09/19/2022 10:31 AM RICE MILLING SUPERVISOR): Omnipod insulin pump with Humalog BR 12a 0.3, 430a 0.7, 4p 0.80, 10p 0.7 CR 10 CF 40 Target 110 AIT 4 hrs Added basal rate: 9-1130a 0.9 Assessment & Plan (04/06/2022 11:50 AM CDT): No pump setting changes. Assessment & Plan (10/20/2021 1:09 PM CDT): No pump changes today. Assessment & Plan (07/28/2021 3:58 PM RICE MILLING SUPERVISOR): Change settings to: BR 12a 0.5, 4a [...] midnight Assessment & Plan (09/08/2019 8:16 PM RICE MILLING SUPERVISOR): No change to current settings until assessed [...] of bolusing appropriately and follow up with whale trainer. Assessment & Plan (10/16/2018 10:13 AM CDT): No change to settings. Assessment & Plan (07/12/2017 3:39 PM RICE MILLING SUPERVISOR): Have long acting , basal insulin ( [...] exercise Assessment & Plan (06/30/2024 3:13 PM RICE MILLING SUPERVISOR): Chronic, stable with some hypoglycemia I made [...] labs. Last DM eye exam 10/19/22 at [facility]. Scheduled for 11/01/23. Letter sent [...] infection. Assessment & Plan (08/21/2023 1:28 PM RICE MILLING SUPERVISOR): Hba1c was Lab Results Component Value Date [...] labs. Last DM eye exam 10/19/22 at [facility]. Letter sent to get most [...] settings Assessment & Plan (09/19/2022 10:53 AM RICE MILLING SUPERVISOR): Chronic problem, well controlled. Having postprandial increase [...] update MA/Cr today. Verified that she uses [facility] [place]. Aware to check results/results letter in [facility] [place]. Will contact by phone if needed. Omnipod insulin pump with Humalog BR 12a 0.3, 430a 0.7, Added basal rate: 9-1130a 0.9, 4p 0.80, 10p 0.7 CR 10 CF 40 Target 110 AIT 4 hrs Assessment & Plan (07/11/2022 4:01 PM RICE MILLING SUPERVISOR): Hba1c was Lab Results Component Value Date [...] is interested in. Sent in prescriptions to [facility] pharmacy, and she will let us [...] she should check with her DME supplier ([employer]). Assessment & Plan (07/28/2021 3:57 PM RICE MILLING SUPERVISOR): Chronic problem, not at goal with frequent [...] n Assessment & Plan (09/21/2020 1:42 PM RICE MILLING SUPERVISOR): Hba1c was Lab Results Component Value Date [...] settings Assessment & Plan (06/10/2020 3:42 PM RICE MILLING SUPERVISOR): A1c 6.3. BG pattern acceptable. No change [...] made. Assessment & Plan (09/08/2019 8:15 PM RICE MILLING SUPERVISOR): A1c 6.9 however this is representing a [...] settings. Assessment & Plan (05/30/2018 4:53 PM RICE MILLING SUPERVISOR): Hba1c was Lab Results Component Value Date [...] discussed. Assessment & Plan (07/12/2017 3:41 PM RICE MILLING SUPERVISOR): Hba1c was 7.3 today, indicating sub-optimal DM [...] time. Assessment & Plan (08/21/2023 1:32 PM RICE MILLING SUPERVISOR): Update GFR Continue with Hyzaar Assessment & Plan (04/10/2023 10:11 AM CDT): Chronic problem controlled on current losartan/hctz 50-12.5mg No changes at this time. Assessment & Plan (01/16/2023 2:58 PM CDT): Chronic, well controlled Importance of low salt diet and exercise were discussed Continue current meds including Losartan Assessment & Plan (09/19/2022 10:52 AM RICE MILLING SUPERVISOR): Chronic problem, normal on recheck. Currently taking losartan/hctz 50-12.5mg No changes at this time. Assessment & Plan (07/11/2022 4:03 PM RICE MILLING SUPERVISOR): Chronic, well controlled Importance of low salt diet and exercise were discussed Continue current meds including losartan Update GFR Assessment & Plan (04/06/2022 11:18 AM CDT): Controlled on current medications, no changes. Assessment & Plan (10/20/2021 1:09 PM CDT): Controlled on current medications, no changes. Assessment & Plan (07/28/2021 1:24 PM RICE MILLING SUPERVISOR): Controlled on current medications, no changes. Assessment [...] losartan Assessment & Plan (09/21/2020 1:42 PM RICE MILLING SUPERVISOR): Goal blood pressure is less than 140/85 Low salt diet was discussed andd recommended The importance of daily aerobic exercise was also emphasized. Continue current meds, including AUSTIN-I or ARB, e.g. Losartan Assessment & Plan (06/10/2020 3:42 PM RICE MILLING SUPERVISOR): Controlled on current medications. Continue plan. Assessment & Plan (12/11/2019 3:32 PM CDT): Check random home BP readings Assessment & Plan (09/08/2019 4:48 PM RICE MILLING SUPERVISOR): Controlled on current medications. Continue plan. Assessment & Plan (01/10/2019 8:41 AM CDT): Controlled on current medications. Assessment & Plan (10/16/2018 10:12 AM CDT): Controlled on current medications. Assessment & Plan (05/30/2018 4:53 PM RICE MILLING SUPERVISOR): Goal blood pressure is less than 140/85 [...] ARB Assessment & Plan (07/12/2017 3:06 PM RICE MILLING SUPERVISOR): Goal blood pressure is less than 140/85 [...] Type 2 diabetes mellitus wit hout complication ([facility]) 03/31/2020 03/24/2021 Type 1 diabetes mellitus with [...] on pump education. Additionally needs to see whale trainer. Have advised pt to not do [...] contact information for 24 help line at [facility] for any questions. She has follow up [...] therapy. Assessment & Plan (05/30/2018 4:54 PM RICE MILLING SUPERVISOR): Goal of treatment , LDL cholesterol less [...] rosuvastatin. Assessment & Plan (07/12/2017 3:06 PM RICE MILLING SUPERVISOR): Goal of treatment , LDL cholesterol less [...] Department Care Team Description 11/07/2024 Orders Only [facility] Diabetes and Endocrinology [address] [place] [phone] ProviderBrett MD 10/13/2024 1:00 PM CDT Office Visit [facility] [address] [phone] Jaqueline Pollack MD Type 1 diabetes mellitus with hyperglycemia (HCC) (Primary Dx) 10/03/2024 2:12 PM CDT - 10/03/2024 11:59 PM CDT Hospital Encounter [facility] [id number] [place] [id number] 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) Discharge Disposition: Discharge to home or self care 10/03/2024 1:45 PM CDT Lab [facility] Outpatient Lab at [address] [phone] Type 2 diabetes mellitus with diabetic mononeuropathy [...] on file Legal Sex Female 1:59 PM RICE MILLING SUPERVISOR Gender Identity Female 03/08/2020 4:32 PM CDT [...] LAB BLOOD ORDERABLES Final R esult [facility]IT[facility] [address] [place] [address] * (ABNORMAL) Differential, auto (10/03/2024 2:12 PM CDT) Neutrophil abs 3.9 1.5 - 6.5 K/cumm Imm gran abs 0.1 0.0 - 0.1 K/cumm [facility] Lymphocyte abs 4.3(H) 0.8 - 3.3 K/cumm [facility] Monocyte abs 0.9(H) 0.2 - 0.8 K/cumm [facility] Eosinophil abs 0.2 0.0 - 0.5 K/cumm [facility] Basophil abs 0.1 0.0 - 0.1 K/cumm [facility] Neutrophil pct 41.1 % [facility] Comment: Interpretive Data Percent cell count reference ranges are not reported, since discordance with absolute values may lead to misinterpretation of CBC data. Current Interpretive Data was last revised on 2017. Imm gran pct 1.0 % [facility] Comment: Interpretive Data Percent cell count reference ranges are not reported, since discordance with absolute values may lead to misinterpretation of CBC data. Current Interpretive Data was last revised on 2017. Lymphocyte pct 45.5 % [facility] Comment: Interpretive Data Percent cell count reference ranges are not reported, since discordance with absolute values may lead to misinterpretation of CBC data. Current Interpretive Data was last revised on 2017. Monocyte pct 9.7 % [facility] Comment: Interpretive Data Percent cell count reference ranges are not reported, since discordance with absolute values may lead to misinterpretation of CBC data. Current Interpretive Data was last revised on 2017. Eosinophil pct 1.6 % [facility] Comment: Interpretive Data Percent cell count reference ranges are not reported, since discordance with absolute values may lead to misinterpretation of CBC data. Current Interpretive Data was last revised on 2017. Basophil pct 1.1 % [facility] Comment: Interpretive Data Percent cell count reference ranges are not reported, since discordance with absolute values may lead to misinterpretation of CBC data. Current Interpretive Data was last revised on 2017. Blood 10/03/2024 2:12 PM CDT 10/03/2024 9:01 PM CDT us Liat Donaldson MD LAB BLOOD ORDERABLES Final R esult [facility] [address] [place] [address] * (ABNORMAL) Thyroid Function [place] (10/03/2024 2:12 PM CDT) TSH 8.01(H) 0.30 - 4.20 mcIUnit/mL Blood 10/03/2024 2:12 PM CDT 10/03/2024 9:01 PM CDT Liat Donaldson MD LAB BLOOD ORDERABLES Final R esult Performing Organization Address City/[facility]/ZIP Co de Phone Number HITESH [address] [place] [address] * (ABNORMAL) CBC with auto [...] BLOOD ORDERABLES Final R esult [facility]ITESH [address]U [id number] [place] [address] * (ABNORMAL) T3, free (10/03/2024 2:12 PM CDT) Free T3 1.6(L) 2.0 - 4.4 pg/mL Blood 10/03/2024 2:12 PM CDT 10/03/2024 9:01 PM CDT Narrative HITESH - 10/03/2024 9:42 PM CDT FAX RESULTS TO LIAT DONALDSON [phone] Liat Donaldson MD LAB BLOOD ORDERABLES Final R esult Performing Organization Address [facility] de Phone Number [facility] [address] [place] [address] * T4, free (10/03/2024 2:12 PM CDT) Pathologist [facility] Free T4 1.02 0.90 - 1.70 ng/dL Blood 10/03/2024 2:12 PM CDT 10/03/2024 9:09 PM CDT Liat Donaldson MD LAB BLOOD ORDERABLES Final R esult Performing Organization Address [facility] Phone Number [facility] [address] [place] [address] * Hemoglobin A1c (10/03/2024 2:12 PM CDT) [facility] Hgb A1C 4.5 4.0 - 5.6 % Estimated Average Glucose 82 mg/dL [facility] Comment: The ADA recommends reporting an estimated Average Glucose (eAG) with all Hemoglobin A1c results using the equation derived from a study of 507 normal and diabetic adults. Minority populations were underrepresented and children were not included. (Diabetes Care 31:9021-0663, 2008). The eAG is not equivalent to a fasting glucose. Blood Venous blood specimen / Unknown 10/03/2024 2:12 PM CDT 10/03/2024 9:01 PM CDT Narrative HITESH - 10/03/2024 9:27 PM CDT FAX RESULTS TO LIAT DONALDSON [phone] Liat Donaldson MD LAB BLOOD ORDERABLES Final R esult Performing Organization Address [facility]/State/ZIP Co de Phone Number [facility] [address] [facility] Department [place] [address] * Lipid panel (10/03/2024 2:12 PM CDT) [...] BLOOD ORDERABLES Final R esult [facility] CHU [address] [place] [address] * (ABNORMAL) Comprehensive metabolic panel [...] BLOOD ORDERABLES Final R esult [facility] CHU [address] Department [place] [address] * Albumin Creatinine Ratio, Urine (10/30/2023 11:03 [...] LAB URINE ORDERABLES Berta l Result MATTT[facility] [address] [place] [address] from Last 3 Months or Most Recently Relevant to Health Maintenance Insurance MEDICARE [facility] FEDERAL MEDICARE Care Teams Structures Engineer Relationship Specialty Start Date End Date Liat Donaldson MD PCP - General 10/20/16
--- OUTSIDE RECORDS SUMMARY | 2024-11-28 14:19 | XMS_ITS | Referral Summary ---
Author Organization [address] Address [address] [place] [phone] Care Team Providers Care Stockroom Attendant Name Role Phone Liat Donaldson MD Primary Care Provider Encounters Date Type Department Care Team Description 11/07/2024 Orders Only [facility] Diabetes and Endocrinology [address] [place] [phone] Brett Stone MD 10/13/2024 1:00 PM CDT Office Visit [facility] [place] [facility] [id number] [place] [phone] Jaqueline Pollack MD Type 1 diabetes mellitus with hyperglycemia (HCC) (Primary Dx) 10/03/2024 2:12 PM CDT - 10/03/2024 11:59 PM CDT Hospital Encounter [address] [address] 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 Further evaluation and management regarding the footdrop [...] 1 Assessment & Plan (06/30/2024 3:13 PM DIE FINISHER FORGING): Chronic, stable Continue rosuvastatin 10 mg daily. Assessment & Plan (04/02/2024 3:35 PM CDT): Chronic, stable. Continue current medication including Hyzaar Assessment & Plan (10/30/2023 10:04 AM CDT): Chronic problem, well controlled on current Rosuvastatin 10mg. Last lipid panel: 08/22/23 LDL=67, TG=57. No changes at this time. Assessment & Plan (08/21/2023 1:32 PM DIE FINISHER FORGING): Chronic, well controlled Update Lipid profile Continue Simvastatin Assessment & Plan (04/10/2023 10:12 AM CDT): Chronic problem, well controlled on current Rosuvastatin 10mg. Last lipid panel: 08/04/22 LDL=66, TG=49. No changes at this time. Assessment & Plan (01/16/2023 3:00 PM CDT): Chronic, well controlled Low fat Low cholesterol diet Exercise Continue statin therapy wit Rosuvastatin Assessment & Plan (09/19/2022 10:47 AM DIE FINISHER FORGING): Chronic problem, well controlled on current Rosuvastatin 10mg. Last lipid panel: 08/04/22 LDL=66, TG=49. No changes at this time. Assessment & Plan (07/11/2022 4:02 PM DIE FINISHER FORGING): Chronic, well controlled Low fat Low cholesterol [...] changes. Assessment & Plan (07/28/2021 3:56 PM DIE FINISHER FORGING): Chronic problem. On statin therapy, no changes. [...] Crestor Assessment & Plan (09/21/2020 1:42 PM DIE FINISHER FORGING): Goal of treatment , LDL cholesterol less [...] exercise Assessment & Plan (06/10/2020 3:43 PM DIE FINISHER FORGING): Check lipid panel. Keep in consideration that [...] therapy Assessment & Plan (09/08/2019 9:40 AM DIE FINISHER FORGING): At goal on current medications. Continue statin [...] changes. Assessment & Plan (09/19/2022 10:31 AM DIE FINISHER FORGING): Omnipod insulin pump with Humalog BR 12a 0.3, 430a 0.7, 4p 0.80, 10p 0.7 CR 10 CF 40 Target 110 AIT 4 hrs Added basal rate: 9-1130a 0.9 Assessment & Plan (04/06/2022 11:50 AM CDT): No pump setting changes. Assessment & Plan (10/20/2021 1:09 PM CDT): No pump changes today. Assessment & Plan (07/28/2021 3:58 PM DIE FINISHER FORGING): Change settings to: BR 12a 0.5, 4a [...] midnight Assessment & Plan (09/08/2019 8:16 PM DIE FINISHER FORGING): No change to current settings until assessed [...] of bolusing appropriately and follow up with link trainer operator. Assessment & Plan (10/16/2018 10:13 AM CDT): No change to settings. Assessment & Plan (07/12/2017 3:39 PM DIE FINISHER FORGING): Have long acting , basal insulin ( [...] exercise Assessment & Plan (06/30/2024 3:13 PM DIE FINISHER FORGING): Chronic, stable with some hypoglycemia I made [...] labs. Last DM eye exam 10/19/22 at [facility]. Scheduled for 11/01/23. Letter sent [...] infection. Assessment & Plan (08/21/2023 1:28 PM DIE FINISHER FORGING): Hba1c was Lab Results Component Value Date [...] labs. Last DM eye exam 10/19/22 at [facility]. Letter sent to get most [...] settings Assessment & Plan (09/19/2022 10:53 AM DIE FINISHER FORGING): Chronic problem, well controlled. Having postprandial increase [...] update MA/Cr today. Verified that she uses [employer] Aware to check results/results letter in [employer] Will contact by phone if needed. Omnipod insulin pump with Humalog BR 12a 0.3, 430a 0.7, Added basal rate: 9-1130a 0.9, 4p 0.80, 10p 0.7 CR 10 CF 40 Target 110 AIT 4 hrs Assessment & Plan (07/11/2022 4:01 PM DIE FINISHER FORGING): Hba1c was Lab Results Component Value Date [...] is interested in. Sent in prescriptions to [facility] pharmacy, and she will let us [...] she should check with her DME supplier ([employer]). Assessment & Plan (07/28/2021 3:57 PM DIE FINISHER FORGING): Chronic problem, not at goal with frequent [...] n Assessment & Plan (09/21/2020 1:42 PM DIE FINISHER FORGING): Hba1c was Lab Results Component Value Date [...] settings Assessment & Plan (06/10/2020 3:42 PM DIE FINISHER FORGING): A1c 6.3. BG pattern acceptable. No change [...] instructions in writing and they will contact [employer] if any issues being able to do this. Advised pump upload in 2 weeks to evaluate changes. Suspect that as she become more active with PT, adjustments will need to be made. Assessment & Plan (09/08/2019 8:15 PM DIE FINISHER FORGING): A1c 6.9 however this is representing a [...] settings. Assessment & Plan (05/30/2018 4:53 PM DIE FINISHER FORGING): Hba1c was Lab Results Component Value Date [...] discussed. Assessment & Plan (07/12/2017 3:41 PM DIE FINISHER FORGING): Hba1c was 7.3 today, indicating sub-optimal DM [...] time. Assessment & Plan (08/21/2023 1:32 PM DIE FINISHER FORGING): Update GFR Continue with Hyzaar Assessment & Plan (04/10/2023 10:11 AM CDT): Chronic problem controlled on current losartan/hctz 50-12.5mg No changes at this time. Assessment & Plan (01/16/2023 2:58 PM CDT): Chronic, well controlled Importance of low salt diet and exercise were discussed Continue current meds including Losartan Assessment & Plan (09/19/2022 10:52 AM DIE FINISHER FORGING): Chronic problem, normal on recheck. Currently taking losartan/hctz 50-12.5mg No changes at this time. Assessment & Plan (07/11/2022 4:03 PM DIE FINISHER FORGING): Chronic, well controlled Importance of low salt diet and exercise were discussed Continue current meds including losartan Update GFR Assessment & Plan (04/06/2022 11:18 AM CDT): Controlled on current medications, no changes. Assessment & Plan (10/20/2021 1:09 PM CDT): Controlled on current medications, no changes. Assessment & Plan (07/28/2021 1:24 PM DIE FINISHER FORGING): Controlled on current medications, no changes. Assessment [...] losartan Assessment & Plan (09/21/2020 1:42 PM DIE FINISHER FORGING): Goal blood pressure is less than 140/85 Low salt diet was discussed andd recommended The importance of daily aerobic exercise was also emphasized. Continue current meds, including AUSTIN-I or ARB, e.g. Losartan Assessment & Plan (06/10/2020 3:42 PM DIE FINISHER FORGING): Controlled on current medications. Continue plan. Assessment & Plan (12/11/2019 3:32 PM CDT): Check random home BP readings Assessment & Plan (09/08/2019 4:48 PM DIE FINISHER FORGING): Controlled on current medications. Continue plan. Assessment & Plan (01/10/2019 8:41 AM CDT): Controlled on current medications. Assessment & Plan (10/16/2018 10:12 AM CDT): Controlled on current medications. Assessment & Plan (05/30/2018 4:53 PM DIE FINISHER FORGING): Goal blood pressure is less than 140/85 [...] ARB Assessment & Plan (07/12/2017 3:06 PM DIE FINISHER FORGING): Goal blood pressure is less than 140/85 [...] Type 2 diabetes mellitus wit hout complication ([facility]) 03/31/2020 03/24/2021 Type 1 diabetes mellitus [...] on pump education. Additionally needs to see link trainer operator. Have advised pt to not do correction [...] therapy. Assessment & Plan (05/30/2018 4:54 PM DIE FINISHER FORGING): Goal of treatment , LDL cholesterol less [...] rosuvastatin. Assessment & Plan (07/12/2017 3:06 PM DIE FINISHER FORGING): Goal of treatment , LDL cholesterol less [...] on file Legal Sex Female 1:59 PM DIE FINISHER FORGING Gender Identity Female 03/08/2020 4:32 PM CDT [...] blood 10/13/2024 1 :12 PM CDT Result [facility] us Jaqueline Pollack MD POINT OF CARE TEST ORDERABLES Fi nal Result * POCT glucose (10/13/2024 1:12 PM CDT) Glucose Blood, POC 110 mg/dL Comment:None Blood 10/13/2024 1:12 PM CDT Result [facility] us Jaqueline Pollack MD POINT OF [...] MD LAB BLOOD ORDERABLES Final R esult [facility] [address] Department [place] [address] * (ABNORMAL) Differential, auto (10/03/2024 2:12 PM CDT) Neutrophil abs 3.9 1.5 - 6.5 K/cumm Imm gran abs 0.1 0.0 - 0.1 K/cumm [facility] Lymphocyte abs 4.3(H) 0.8 - 3.3 K/cumm [facility] Monocyte abs 0.9(H) 0.2 - 0.8 K/cumm [facility] Eosinophil abs 0.2 0.0 - 0.5 K/cumm [facility] Basophil abs 0.1 0.0 - 0.1 K/cumm [facility] Neutrophil pct 41.1 % [facility] Comment: Interpretive Data Percent cell count reference ranges are not reported, since discordance with absolute values may lead to misinterpretation of CBC data. Current Interpretive Data was last revised on 2017. Imm gran pct 1.0 % [facility] Comment: Interpretive Data Percent cell count reference ranges are not reported, since discordance with absolute values may lead to misinterpretation of CBC data. Current Interpretive Data was last revised on 2017. Lymphocyte pct 45.5 % [facility] Comment: Interpretive Data Percent cell count reference ranges are not reported, since discordance with absolute values may lead to misinterpretation of CBC data. Current Interpretive Data was last revised on 2017. Monocyte pct 9.7 % [facility] Comment: Interpretive Data Percent cell count reference ranges are not reported, since discordance with absolute values may lead to misinterpretation of CBC data. Current Interpretive Data was last revised on 2017. Eosinophil pct 1.6 % [facility] Comment: Interpretive Data Percent cell count reference ranges are not reported, since discordance with absolute values may lead to misinterpretation of CBC data. Current Interpretive Data was last revised on 2017. Basophil pct 1.1 % [facility] Comment: Interpretive Data Percent cell count reference ranges are not reported, since discordance with absolute values may lead to misinterpretation of CBC data. Current Interpretive Data was last revised on 2017. Blood 10/03/2024 2:12 PM CDT 10/03/2024 9:01 PM CDT Liat Donaldson MD LAB BLOOD ORDERABLES Final R esult Performing Organization Address [facility] Co de Phone Number HITESH VLAD [address] [employer] [place], [place] [id number] * (ABNORMAL) Thyroid Function [place] (10/03/2024 2:12 PM CDT) TSH 8.01(H) 0.30 - 4.20 mcIUnit/mL Blood 10/03/2024 2:12 PM CDT 10/03/2024 9:01 PM CDT Liat Donaldson MD LAB BLOOD ORDERABLES Final R esult Performing Organization Address [facility] Co de Phone Number MATTTAMMI CHU [address] [place] [address] * (ABNORMAL) CBC with auto differential (10/03/2024 2:12 PM CDT) WBC 9.4 3.8 - 9.9 K/cumm Hgb 10.5(L) 11.9 - 15.5 g/dL [facility] Hct 31.9(L) 35.6 - 45.5 % [facility] Plt 417(H) 150 - 400 K/cumm [facility] MPV 9.8 9.1 - 12.3 fL [facility] RBC 3.40(L) 3.90 - 5.20 M/cumm [facility] MCV 93.8 81.3 - 96.4 fL [facility] MCH 30.9 27.1 - 33.3 pg [facility] MCHC 32.9 32.3 - 35.7 g/dL [facility] RDW CV 15.9(H) 11.1 - 14.9 % [facility] RDW SD 55.0(H) 35.7 - 48.1 fL [facility] NRBC abs 0.00 0.00 - 0.01 K/cumm [facility] Blood 10/03/2024 2:12 PM CDT 10/03/2024 9:01 PM CDT us Liat Donaldson MD LAB BLOOD ORDERABLES Final R esult Performing Organization Address City/[facility] Co de Phone Number [facility] [address] [facility] Department [place] [address] * (ABNORMAL) T3, free (10/03/2024 2:12 PM CDT) Pathologist [facility] Free T3 1.6(L) 2.0 - 4.4 pg/mL Blood 10/03/2024 2:12 PM CDT 10/03/2024 9:01 PM CDT Narrative [facility] - 10/03/2024 9:42 PM CDT FAX RESULTS TO LIAT DONALDSON [phone] Liat Donaldson MD LAB BLOOD ORDERABLES Final R esult [facility] [address] [place] [address] * T4, free (10/03/2024 2:12 PM CDT) Free T4 1.02 0.90 - 1.70 ng/dL Blood 10/03/2024 2:12 PM CDT 10/03/2024 9:09 PM CDT Liat Donaldson MD LAB BLOOD ORDERABLES Final R esult Performing Organization Address City/[facility] Co de Phone Number HITESH [address] [place] [employer] [place] [address] * Hemoglobin A1c (10/03/2024 2:12 PM CDT) [facility] Hgb A1C 4.5 4.0 - 5.6 % Estimated Average Glucose 82 mg/dL HITESH Comment: The ADA recommends reporting an estimated Average Glucose (eAG) with all Hemoglobin A1c results using the equation derived from a study of 507 normal and diabetic adults. Minority populations were underrepresented and children were not included. (Diabetes Care 31:5807-2925, 2008). The eAG is not equivalent to a fasting glucose. Blood Venous blood specimen / Unknown 10/03/2024 2:12 PM CDT 10/03/2024 9:01 PM CDT Narrative [facility] - 10/03/2024 9:27 PM CDT FAX RESULTS TO LIAT DONALDSON [phone] Liat Donaldson MD LAB BLOOD ORDERABLES Final R esult Performing Organization Address City/State/[facility] Co de Phone Number HITESH CHU [address] [place] [employer] [place] [address] * Lipid panel (10/03/2024 2:12 PM CDT) [facility] Cholesterol 185 30 - 199 mg/dL Comment: [...] MD LAB BLOOD ORDERABLES Final R esult [facility] [address] Department [place] [address] * (ABNORMAL) Comprehensive metabolic panel (10/03/2024 2:12 [...] affected. AST 36 10 - 45 Units/L [facility] Comment:Lipemia present. Res ults may be affected. Blood Venous blood specimen / Unknown 10/03/2024 2:12 PM CDT 10/03/2024 9:01 PM CDT us Liat Donaldson MD LAB BLOOD ORDERABLES Final R esult [facility] [address] Department [place] [address] * Albumin Creatinine Ratio, Urine (10/30/2023 11:03 AM CDT) Albumin Ur 22.2 mg/L Comment: Interpretive Data No reference range established. Current interpretive data was last revised 2018. Creatinine Ur 95.5 mg/dL [facility] Comment: Interpretive Data No reference range established. Current interpretive data was last revised 2018. Albumin Creatinine Ratio, Ur 23 1 - 29 mg/g [facility] Urine 10/30/2023 11:0 3 AM CDT 10/30/2023 2:32 PM CDT us Kelsy Carpenter NP LAB URINE ORDERABLES Berta mckay Result [facility]IT[facility] CHU [address] [place] [address] from Last 3 Months or Most Recently Relevant to Health Maintenance Insurance MEDICARE [facility] [employer] Member Subscriber Plan / Payer (Ef fective 2015-Present) Name:Valeria Ladd Relation to Subscriber:Spouse Name:JAKOB LADD Date of :1949 (Home) Address: [address] [place] [phone] Payer ID:[id number] (NAIC) Group ID:[id number] Type:BC ALLIANCE Address: [address] [place] [id number] MEDICARE Care Teams Stockroom Attendant Relationship Specialty Start Date End Date Liat Donaldson MD PCP - General 10/20/16
== END 2024-11-28 14:15 | disposition home or self-care (01) ==
LOC: ANHIMG 14:16
PROVIDERS: PCP Internal Medicine; Visit Provider Internal Medicine
DX: Z78.0 Asymptomatic menopausal state (principal)
CPT/HCPCS: 77080

== ENCOUNTER 2025-02-26 08:05 | Outpatient (CLI) | payer MEDICARE, BC, SELFPAY ==
--- NOTE | 2025-02-26 | EST_ITS ---
Patient Info Name: Valeria Murillo Age: 74 years : 1950 Gender: Female Ht: 65 in Wt: 180 lbs BSA: 1.96 m2 Exam Date: 02/26/2025 9:20 AM Patient Status: O Admit Date: 02/26/2025 Exam Type: CA stress abhijit w NM A regadenoson stress test was performed. Staff Referring Physician: Tommie Donaldson Attending Provider: Tommie Donaldson Exercise Technologist: Roberta Green Exercise Physician: Kishan Loo DO Summary 1. 1. Negative lexiscan stress test for ischemic ST changes by ECG criteria. 2. 2. Baseline hypertension. 3. 3. Nuclear scan to follow and will b e reported separately. Please correlate with it. 4. 4. Patient informed of the above results. Protocol: Lexiscan Stress ECG Details Stage: REST Duration (min): 1 min : 36 sec HR (bpm): 76 SBP (mmHg): 158 DBP (mmHg): 80 Stage: REST Duration (min): 6 min : 8 sec HR (bpm): 71 SBP (mmHg): 158 DBP (mmHg): 80 Stage: STAGE 1 Duration (min): 0 min : 59 sec HR (bpm): 77 SBP (mmHg): 151 DBP (mmHg): 74 Stage: RECOVERY Duration (min): 1 min : 0 sec HR (bpm): 80 SBP (mmHg): 147 DBP (mmHg): 73 Stage: RECOVERY Duration (min): 2 min : 0 sec HR (bpm): 78 SBP (mmHg): 147 DBP (mmHg): 73 Stage: RECOVERY Duration (min): 3 min : 0 sec HR (bpm): 76 SBP (mmHg): 138 DBP (mmHg): 72 Stage: RECOVERY Duration (min): 4 min : 0 sec HR (bpm): 78 SBP (mmHg): 138 DBP (mmHg): 72 Stage: RECOVERY Duration (min): 4 min : 42 sec HR (bpm): 78 SBP (mmHg): 140 DBP (mmHg): 73 Rest HR: 71 bpm Peak HR: 84 bpm Rest Sys BP: 158 mmHg Peak Sys BP: 151 mmHg Max Pred HR: 146 bpm % Max Pred HR: 58 % Target HR: 124 bpm Max RPP: 12,684 bpm*mmHg Termination Reason: Completed protocol Cardiac Symptoms: None Total Time: 1 min : 0 sec Rest Manuel BP: 80 mmHg Peak Manuel BP: 74 mmHg Total Dose: 0.4 mg Resting ECG Sinus rhythm. Stress ECG No ST changes. Arrhythmias None. Report Signatures
--- NOTE | ~2025-02-26 | NM_ITS ---
EXAMINATION: NM abhijit stress w perfusion DATE: 02/26/2025 10:59 INDICATION: Dyspnea on exertion TECHNIQUE: Rest images were obtained following intravenous administration of 10.8 mCi Tc99m tetrofosm in (Myoview). The patient was infused intravenously with Lexiscan (Regadenoson). Then, 31.7 mCi Tc99m tetrofosmin (Myoview) was administered intravenously, and stress images were obtained. Data was telma nstructed into short axis and horizontal and vertical long axis SPECT images. Gated SPECT images were also obtained. COMPARISON: None. FINDINGS: There is no definite reversible or fixed perfusion abnormality to suggest ischemia or infar ction. There is normal left ventricular chamber size, wall motion and ejection fraction. Left ventr icular ejection fraction measures >70%. IMPRESSION: 1. Normal myocardial perfusion at rest and during stress. 2. Left ventricular ejection fraction measuring >70%. Reviewed, dictated and finalized at location A.
--- OUTSIDE RECORDS SUMMARY | 2025-02-26 08:08 | XMS_ITS | Encounter Summary ---
Author Organization [facility] Healthcare Address [address] [place] [id number] Care Team Providers Care Mica Plate Layer Name Role Phone Tommie Donaldson MD Primary Care Provider [phone] Reason for Visit * Reason Comments Follow-up TYPE 1 DM Encounter Details Date Type Department Care Team (Latest Contact Info) Description 02/25/2025 10:00 AM CDT Office Visit [facility] Medical Group Diabetes and Endocrinology [address] [place] [phone] [place] [phone] [id number] Type 1 diabetes mellitus with hyperglycemia (HCC) (Primary Dx); Hypertension associated with type 1 diabetes mellitus (HCC); Hyperlipidemia due to type 1 diabetes mellitus (HCC); Chronic painful diabetic neuropathy (HCC); Insulin pump status Social History Tobacco Use Types Packs/Day Years Used Date Smoking Tobacco: Former Smokeless Tobacco: Never Alcohol Use Standard Drinks/Week Comments Yes 0 [...] on file 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 Gender Identity Female 03/08/2020 4:32 PM CDT Sexual Orientation Straight 03/08/2020 4: 32 PM CDT Occupation Industry Job Start Date Job End Date RETIRED Not on file Not on file Not on file documented as of this encounter Last Filed Vital Signs Vital Sign Reading Time Taken Comments Blood Pressure 120/64 02/25/2025 9:56 AM CDT Pulse 89 02/25/2025 9:56 AM CDT Temperature - - Respiratory Rate 18 02/25/2025 9:56 AM CDT Oxygen Saturation - - Inhaled Oxygen Concentration - - Weight 81.9 kg (180 lb 9.6 oz) 02/25/2025 9:56 A M CDT Height 165.1 cm (5' 5) 02/25/2025 9:56 AM CDT Body Mass Index 30.05 02/25/2025 9:56 AM CDT documented in this encounter Patient Instructions * Patient Instructions* Kelsy Carpenter NP - 02/25/2025 10:00 AM CDT Please keep your appointment with Dr Pollack 04/24/25, Kelsy 08/27/25 No changes at this time. I hope you feel better soon! documented in this encounter Progress Notes * Kelsy Carpenter NP - 02/25/2025 10:00 AM CDT Images from the original note were not included. [facility] Diabetes Follow Up Visit Subjective/Objective Patient ID: Valeria Murillo is a 74 y.o. female who comes in today to our Endocrinology clinic to follow up for DM management. Chief Complaint Follow-up (TYPE 1 DM) HPI Diabetes complications and/or comorbidity include: T1DM dx'd around 2006 (gestational with all 3), neuropathy, RA, ankylosing spondylitis, HTN, HLD 02/21/25 overnoc had BG spike. Took most of Sunday to get it into range (300s). Had emesis on Sunday.Very low intake. Sunday she felt better. Sunday she felt poorly again at 0900. Last week saw PCP for SOB/low energy. Had labs last week & has echo/stress test in next 1-2 weeks. Possible FOBT upcoming also. Current medications: Metformin 850mg twice daily before meals Ozempic 0.5 mg q1-2 weeks Humalog via Omnipod 5 insulin pump BR 12a 0.3, 430a 0.7, 9am 0.8, 1130am 0.7, 4p 0.70, 10p 0.7 CR 15 CF 40 Target 110 AIT 4 hrs Dietary habits: 2 meals/day with evening snack; numerologist LN possibly but not always. Notes appetite suppression w/Ozempic. Has lost 8# since 01/19/25 appt. Exercise routine: limited; uses cane. h/o ankylosing spondylitis & R drop foot. still occasionally using treadmill & exercise bike she can use at home. Trying to walk more. Home CBG monitoring results: Dexcom G6. No hypoglycemia. 01/19/25 download comparison: Ave FK=592, 0% very high, 17% high, 83% TIR, 0% low BG Average: 154 mg/dl with: 4% very high 18% high 78% in target range 0% low. Overnight pattern: in range Postprandial pattern: postprandial rises, in range on average. Neuropathy: bilat shins . Gabapentin 300mg qam, occasional at noon, 600mg qhs. Last foot exam: 01/19/25 Statin therapy: Yes. Rosuvastatin 10mg. Last lipid panel: 10/03/24 LDL=55, TG=71. Nephropathy: On [place]-I / ARB???s: Yes. Losartan-HCTZ 50-12.5mg. Last MA: 01/19/25 (26). Last creat/GFR: 02/16/25 GFR=62, CR=0.96. Retinopathy: Date of last eye examination: 11/05/24 NPDR wo DM [facility] Wt Readings from Last 3 Encounters: 02/25/25 81.9 kg (180 lb 9.6 oz) 01/19/25 85.3 kg (188 lb) 10/13/24 89.6 kg (197 lb 9.6 oz) Labs: Last A1c: Recent Labs Lab Units 02/25/25 0957 HEMOGLOBIN A1C POC % 4.8 Component Latest Ref Rng 06/30/2024 10/13/2024 01/19/2025 Hgb A1C, POC 4.0 - 5.6 % 4.9 5.1 4.8 Lab Results Component Value Date ALBCREATRATU 26 01/19/2025 Lab Results Component Value Date MALBCRTRAT 8 08/19/2013 Lipid profile within the last year: Lab Results Component Value Date CHOL 185 10/03/2024 Lab Results Component Value Date TRIG 71 10/03/2024 Lab Results Component Value Date HDL 117 10/03/2024 Lab Results Component Value Date LDLCALC 55 10/03/2024 Vitals: 02/25/25 0956 BP: 120/64 BP Location: Right arm Patient Position: Sitting Pulse: 89 Resp: 18 Weight: 81.9 kg (180 lb 9.6 oz) Height: 165.1 cm (5' 5) Physical Exam Vitals and nursing note reviewed. Constitutional: Appearance: Normal appearance. She is well-developed and overweight. HENT: Head: Normocephalic. Right Ear: Hearing normal. Left Ear: Hearing normal. Eyes: General: Lids are normal. Gaze aligned appropriately. Neck: Thyroid: No thyromegaly. Trachea: Trachea and phonation normal. No tracheal deviation. Cardiovascular: Rate and Rhythm: Normal rate and regular rhythm. No extrasystoles are present. Heart sounds: Normal heart sounds, S1 normal and S2 normal. No murmur heard. Pulmonary: Effort: Pulmonary effort is normal. Breath sounds: Normal breath sounds and air entry. Musculoskeletal: Comments: Walks with cane Skin: General: Skin is warm and dry. Neurological: Mental Status: She is alert and oriented to person, place, and time. Mental status is at baseline. Psychiatric: Mood and Affect: Mood normal. Behavior: Behavior is cooperative. Assessment/Plan Diagnoses and all orders for this visit: Type 1 diabetes mellitus with hyperglycemia (HCC) (Primary) Assessment & Plan: Chronic problem. A1c at goal 4.8% wo hypoglycemia. No changes at this time. Current medications: Humalog via Omnipod 5 insulin pump BR 12a 0.3, 430a 0.7, 9am 0.8, 1130am 0.7, 4p 0.70, 10p 0.7 CR 15 CF 40 Target 110 AIT 4 hrs UTD on labs. UTD on DM eye exam (11/05/24 NPDR wo DM [facility]) Strive for regular exercise (30min most days) and diet (get at least 4-5 servings of fruit and veggies daily, avoid processed foods, increase lean protein intake and decrease carb portions as well asfruit juices, regular soda & desserts). Watch carbs and simple sugars. Check the blood sugar Dexcom G6. Check the feet daily for skin breakdown and infection. Orders: - POCT hemoglobin A1c - POCT glucose Hypertension associated with type 1 diabetes mellitus (HCC) Assessment & Plan: Chronic problem controlled on current losartan/hctz 50-12.5mg No changes at this time. Hyperlipidemia due to type 1 diabetes mellitus (HCC) Assessment & Plan: Chronic problem, well controlled on current Rosuvastatin 10mg. Last lipid panel: 10/03/24 LDL=55, TG=71 No changes at this time. Chronic painful diabetic neuropathy (HCC) Assessment & Plan: Chronic problem. Currently taking Gabapentin 300mg qam & noon (prn), 600mg qhs. Reviewed foot care; needs to lotion daily. Aware to check feet nightly, not to go barefoot. Insulin pump status Assessment & Plan: No pump setting changes. Kelsy Carpenter NP documented in this encounter Miscellaneous Notes * Assessment & Plan Note - Kelsy Carpenter NP - 02/25/2025 10:15 AM CDT Associated Problem(s): Insulin pump status No pump setting changes. * Assessment & Plan Note - Kelsy Carpenter NP - 02/25/2025 10:15 AM CDT Associated Problem(s): Type 1 diabetes mellitus with hyperglycemia (HCC) Chronic problem. A1c at goal 4.8% wo hypoglycemia. No changes at this time. Current medications: Humalog via Omnipod 5 insulin pump BR 12a 0.3, 430a 0.7, 9am 0.8, 1130am 0.7, 4p 0.70, 10p 0.7 CR 15 CF 40 Target 110 AIT 4 hrs UTD on labs. UTD on DM eye exam (11/05/24 NPDR wo DM [facility]) Strive for regular exercise (30min most days) and diet (get at least 4-5 servings of fruit and veggies daily, avoid processed foods, increase lean protein intake and decrease carb portions as well asfruit juices, regular soda & desserts). Watch carbs and simple sugars. Check the blood sugar Dexcom G6. Check the feet daily for skin breakdown and infection. * Assessment & Plan Note - Kelsy Carpenter NP - 02/25/2025 10:14 AM CDT Associated Problem(s): Hypertension associated with type 1 diabetes mellitus (HCC) Chronic problem controlled on current losartan/hctz 50-12.5mg No changes at this time. * Assessment & Plan Note - Kelsy Carpenter NP - 02/25/2025 10:14 AM CDT Associated Problem(s): Hyperlipidemia due to type 1 diabetes mellitus (HCC) Chronic problem, well controlled on current Rosuvastatin 10mg. Last lipid panel: 10/03/24 LDL=55, TG=71 No changes at this time. * Assessment & Plan Note - Kelsy Carpenter NP - 02/25/2025 10:14 AM CDT Associated Problem(s): Chronic painful diabetic neuropathy (HCC) Chronic problem. Currently taking Gabapentin 300mg qam & noon (prn), 600mg qhs. Reviewed foot care; needs to lotion daily. Aware to check feet nightly, not to go barefoot. documented in this encounter Plan of Treatment Not on file documented as of this encounter Procedures Procedure Name Priority Date/Time Associated Diagnosis Comments POCT HEMOGLOBIN A1C Routine 02/25/2025 9 :57 AM CDT Type 1 diabetes mellitus with hyperglycemia (HCC) POCT GLUCOSE Routine 02/25/2025 9:57 AM CDT Type 1 diabetes mellitus with hyperglycemia (HCC) documented in this encounter Results * POCT glucose (02/25/2025 9:57 AM CDT) Glucose Blood, POC 197 Normal Fasting 70 - 100, Random <200 mg/dL Comment:PPG 1 Hr Blood 02/25/2025 9:57 AM CDT Kelsy Carpenter PATENT COUNSEL POINT OF CARE TEST ORDERA BLES Final Result * POCT hemoglobin A1c (02/25/2025 9:57 AM CDT) Hemoglobin A1C, POC 4.8 4.0 - 5.6 % Capillary blood 02/25/2025 9 :57 AM CDT Kelsy Carpenter PATENT COUNSEL POINT OF CARE TEST ORDERA BLES Final Result documented in this encounter Visit Diagnoses Diagnosis Type 1 diabetes mellitus with hyperglycemia (HCC)- Primary Hypertension associated with type 1 diabetes mellitus (HCC) Hyperlipidemia due to type 1 diabetes mellitus (HCC) Chronic painful diabetic neuropathy (HCC) Insulin pump status documented in this encounter Care Teams Mica Plate Layer Relationship Specialty Start Date End Date Tommie Donaldson MD PCP - General 10/20/16 documented as of this encounter
--- OUTSIDE RECORDS SUMMARY | 2025-02-26 08:08 | XMS_ITS | Encounter Summary ---
Author Organization [facility] Healthcare Address [address] [place] [address] Care Team Providers Care Granite Chip Terrazzo Finisher Name Role Phone Tommie Donaldson MD Primary Care Provider Encounter Details Date Type Department Care Team (Late st Contact Info) Description 01/21/2025 Results Follow-Up [facility] Medical Group Diabetes and Endocrinology [address] [place] [phone] Kelsy Carpenter, PORTFOLIO ANALYST [address] [facility] [address] [place] [address] Albumin Creatinine Ratio, Urine Social History Tobacco Use Types Packs/Day Years [...] on file 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 No kidney damage seen. Please call or send a [employer] message if any questions. Thank you, PALOMA Samuel-robin documented in this encounter Plan of Treatment Not on file documented as of this encounter Visit Diagnoses Not on filedocumented in this encounter Care Teams Granite Chip Terrazzo Finisher Relationship Specialty Start Date End Date Tommie Donaldson MD PCP - General 10/20/16 documented as of this encounter
--- OUTSIDE RECORDS SUMMARY | 2025-02-26 08:09 | XMS_ITS | Clinical Summary ---
Author Organization [facility] Address [address] [place] [phone] Care Team Providers Care Customer Consulting Manager Name Role Phone Tommie Donaldson MD Primary Care Provider [phone] Allergies Active Allergy Reactions Criticality Noted Date Comments Ciprofloxacin Nausea only Medium 05/02/2013 Medications omega-3 [...] Active ciclopirox (LOPROX) 0.77 % cream Active sulfaSALAzine EN (AZULFIDINE EN) 500 mg EC tablet Take 2 tablets (1,000 mg total) by mouth 2 (two) times a day 3 Active triamcinolone (KENALOG) 0.1 % cream 3 Active gabapentin (NEURONTIN) 300 mg capsuleIndication s:Chronic [...] MEALS DIRECTED 180 tablet 2 4 Active insulin lispro (HumaLOG) 100 unit/mL vial for injectionIndicati ons:Type 1 diabetes mellitus with hyperglycemia (HCC) USE VIA INSULIN PUMP UP TO 70 UNITS DAILY 60 mL 2 5 Active clobetasoL (TEMOVATE) 0.05 % cream APPLY EXTERNALLY TO THE AFFECTED AREA OF RASH TWICE DAILY FOR 3 WEEKS AT A TIME 5 Active EnbreL SureClick 50 mg/mL (1 mL) pen injector 5 Active Omnipod 5 G6-G7 Pods, Gen 5, cartridge CHANGE POD EVERY 3 DAYS 5 Active Synthroid 25 mcg tablet Take 1 tablet (25 mcg total) by mouth daily Active Active Problems Problem Noted Date Diagnosed Date Chronic painful diabetic neuropathy 10/30/2023 Assessment & Plan (02/25/2025 10:14 AM CDT): Chronic problem. Currently taking Gabapentin 300mg qam & noon (prn), 600mg qhs. Reviewed foot care; needs to lotion daily. Aware to check feet nightly, not to go barefoot. Assessment & Plan (01/19/2025 9:19 AM CDT): Chronic problem. Currently taking Gabapentin 300mg qam & noon (prn), 600mg qhs. Reviewed foot care; needs to lotion daily. Aware to check feet nightly, not to go barefoot. Assessment & Plan (10/30/2023 10:06 AM CDT): [...] 09/19/2022 Assessment & Plan (09/19/2022 10:36 AM DENTURE LABORATORY TECHNICIAN): Discussed healthy diet and importance of regular [...] therapy prescribed by her treating neurosurgeon in [place]. Further evaluation and management regarding the footdrop [...] 1 diabetes mellitus 1 Assessment & Plan (02/25/2025 10:14 AM CDT): Chronic problem, well controlled on current Rosuvastatin 10mg. Last lipid panel: 10/03/24 LDL=55, TG=71 No changes at this time. Assessment & Plan (01/19/2025 9:10 AM CDT): Chronic problem, well controlled on current Rosuvastatin 10mg. Last lipid panel: 10/03/24 LDL=55, TG=71 No changes at this time. Assessment & Plan (06/30/2024 3:13 PM DENTURE LABORATORY TECHNICIAN): Chronic, stable Continue rosuvastatin 10 mg daily. Assessment & Plan (04/02/2024 3:35 PM CDT): Chronic, stable. Continue current medication including Hyzaar Assessment & Plan (10/30/2023 10:04 AM CDT): Chronic problem, well controlled on current Rosuvastatin 10mg. Last lipid panel: 08/22/23 LDL=67, TG=57. No changes at this time. Assessment & Plan (08/21/2023 1:32 PM DENTURE LABORATORY TECHNICIAN): Chronic, well controlled Update Lipid profile Continue Simvastatin Assessment & Plan (04/10/2023 10:12 AM CDT): Chronic problem, well controlled on current Rosuvastatin 10mg. Last lipid panel: 08/04/22 LDL=66, TG=49. No changes at this time. Assessment & Plan (01/16/2023 3:00 PM CDT): Chronic, well controlled Low fat Low cholesterol diet Exercise Continue statin therapy wit Rosuvastatin Assessment & Plan (09/19/2022 10:47 AM DENTURE LABORATORY TECHNICIAN): Chronic problem, well controlled on current Rosuvastatin 10mg. Last lipid panel: 08/04/22 LDL=66, TG=49. No changes at this time. Assessment & Plan (07/11/2022 4:02 PM DENTURE LABORATORY TECHNICIAN): Chronic, well controlled Low fat Low cholesterol [...] changes. Assessment & Plan (07/28/2021 3:56 PM DENTURE LABORATORY TECHNICIAN): Chronic problem. On statin therapy, no changes. [...] Crestor Assessment & Plan (09/21/2020 1:42 PM DENTURE LABORATORY TECHNICIAN): Goal of treatment , LDL cholesterol less [...] exercise Assessment & Plan (06/10/2020 3:43 PM DENTURE LABORATORY TECHNICIAN): Check lipid panel. Keep in consideration that [...] therapy Assessment & Plan (09/08/2019 9:40 AM DENTURE LABORATORY TECHNICIAN): At goal on current medications. Continue statin [...] Insulin pump status 07/12/2017 Assessment & Plan (02/25/2025 10:15 AM CDT): No pump setting changes. Assessment & Plan (01/19/2025 9:11 AM CDT): No pump setting changes. Assessment & Plan (10/30/2023 10:42 AM CDT): No pump setting changes. Assessment & Plan (04/10/2023 10:15 AM CDT): No pump setting changes. Assessment & Plan (09/19/2022 10:31 AM DENTURE LABORATORY TECHNICIAN): Omnipod insulin pump with Humalog BR 12a 0.3, 430a 0.7, 4p 0.80, 10p 0.7 CR 10 CF 40 Target 110 AIT 4 hrs Added basal rate: 9-1130a 0.9 Assessment & Plan (04/06/2022 11:50 AM CDT): No pump setting changes. Assessment & Plan (10/20/2021 1:09 PM CDT): No pump changes today. Assessment & Plan (07/28/2021 3:58 PM DENTURE LABORATORY TECHNICIAN): Change settings to: BR 12a 0.5, 4a [...] midnight Assessment & Plan (09/08/2019 8:16 PM DENTURE LABORATORY TECHNICIAN): No change to current settings until assessed [...] of bolusing appropriately and follow up with head athletic trainer. Assessment & Plan (10/16/2018 10:13 AM CDT): No change to settings. Assessment & Plan (07/12/2017 3:39 PM DENTURE LABORATORY TECHNICIAN): Have long acting , basal insulin ( [...] on diet and exercise Assessment & Plan (02/25/2025 10:15 AM CDT): Chronic problem. A1c at goal 4.8% wo hypoglycemia. No changes at this time. Current medications: Humalog via Omnipod 5 insulin pump BR 12a 0.3, 430a 0.7, 9am 0.8, 1130am 0.7, 4p 0.70, 10p 0.7 CR 15 CF 40 Target 110 AIT 4 hrs UTD on labs. UTD on DM eye exam (11/05/24 NPDR wo DM [facility]) Strive for regular exercise (30min most days) and diet (get at least 4-5 servings of fruit and veggies daily, avoid processed foods, increase lean protein intake and decrease carb portions as well as fruit juices, regular soda & desserts). Watch carbs and simple sugars. Check the blood sugar Dexcom G6. Check the feet daily for skin breakdown and infection. Assessment & Plan (01/19/2025 9:11 AM CDT): Chronic problem. A1c at goal 4.8% wo hypoglycemia. No changes at this time. Current medications: Humalog via Omnipod 5 insulin pump BR 12a 0.3, 430a 0.7, 9am 0.8, 1130am 0.7, 4p 0.70, 10p 0.7 CR 15 CF 40 Target 110 AIT 4 hrs UTD on labs. Last DM eye exam 10/19/22 at [facility]. Scheduled for 11/01/23. Letter sent to [...] skin breakdown and infection. Assessment & Plan (06/30/2024 3:13 PM DENTURE LABORATORY TECHNICIAN): Chronic, stable with some hypoglycemia I made [...] labs. Last DM eye exam 10/19/22 at [facility]. Scheduled for 11/01/23. Letter sent [...] infection. Assessment & Plan (08/21/2023 1:28 PM DENTURE LABORATORY TECHNICIAN): Hba1c was Lab Results Component Value Date [...] labs. Last DM eye exam 10/19/22 at [facility]. Letter sent to get most [...] settings Assessment & Plan (09/19/2022 10:53 AM DENTURE LABORATORY TECHNICIAN): Chronic problem, well controlled. Having postprandial increase [...] update MA/Cr today. Verified that she uses [employer]. Aware to check results/results letter in [employer]. Will contact by phone if needed. Omnipod insulin pump with Humalog BR 12a 0.3, 430a 0.7, Added basal rate: 9-1130a 0.9, 4p 0.80, 10p 0.7 CR 10 CF 40 Target 110 AIT 4 hrs Assessment & Plan (07/11/2022 4:01 PM DENTURE LABORATORY TECHNICIAN): Hba1c was Lab Results Component Value Date [...] is interested in. Sent in prescriptions to [facility] pharmacy, and she will let us know [...] she should check with her DME supplier ([employer]). Assessment & Plan (07/28/2021 3:57 PM DENTURE LABORATORY TECHNICIAN): Chronic problem, not at goal with frequent [...] n Assessment & Plan (09/21/2020 1:42 PM DENTURE LABORATORY TECHNICIAN): Hba1c was Lab Results Component Value Date [...] settings Assessment & Plan (06/10/2020 3:42 PM DENTURE LABORATORY TECHNICIAN): A1c 6.3. BG pattern acceptable. No change [...] instructions in writing and they will contact [employer] if any issues being able to do this. Advised pump upload in 2 weeks to evaluate changes. Suspect that as she become more active with PT, adjustments will need to be made. Assessment & Plan (09/08/2019 8:15 PM DENTURE LABORATORY TECHNICIAN): A1c 6.9 however this is representing a [...] settings. Assessment & Plan (05/30/2018 4:53 PM DENTURE LABORATORY TECHNICIAN): Hba1c was Lab Results Component Value Date [...] discussed. Assessment & Plan (07/12/2017 3:41 PM DENTURE LABORATORY TECHNICIAN): Hba1c was 7.3 today, indicating sub-optimal DM [...] Overview (04/06/2022): Hypertension, Unspecified Assessment & Plan (02/25/2025 10:14 AM CDT): Chronic problem controlled on current losartan/hctz 50-12.5mg No changes at this time. Assessment & Plan (01/19/2025 9:10 AM CDT): Chronic problem controlled on current losartan/hctz 50-12.5mg No changes at this time. Assessment & Plan (10/30/2023 10:04 AM CDT): Chronic problem controlled on current losartan/hctz 50-12.5mg No changes at this time. Assessment & Plan (08/21/2023 1:32 PM DENTURE LABORATORY TECHNICIAN): Update GFR Continue with [employer] Assessment & Plan (04/10/2023 10:11 AM CDT): Chronic problem controlled on current losartan/hctz 50-12.5mg No changes at this time. Assessment & Plan (01/16/2023 2:58 PM CDT): Chronic, well controlled Importance of low salt diet and exercise were discussed Continue current meds including Losartan Assessment & Plan (09/19/2022 10:52 AM DENTURE LABORATORY TECHNICIAN): Chronic problem, normal on recheck. Currently taking losartan/hctz 50-12.5mg No changes at this time. Assessment & Plan (07/11/2022 4:03 PM DENTURE LABORATORY TECHNICIAN): Chronic, well controlled Importance of low salt diet and exercise were discussed Continue current meds including losartan Update GFR Assessment & Plan (04/06/2022 11:18 AM CDT): Controlled on current medications, no changes. Assessment & Plan (10/20/2021 1:09 PM CDT): Controlled on current medications, no changes. Assessment & Plan (07/28/2021 1:24 PM DENTURE LABORATORY TECHNICIAN): Controlled on current medications, no changes. Assessment [...] losartan Assessment & Plan (09/21/2020 1:42 PM DENTURE LABORATORY TECHNICIAN): Goal blood pressure is less than 140/85 Low salt diet was discussed andd recommended The importance of daily aerobic exercise was also emphasized. Continue current meds, including AUSTIN-I or ARB, e.g. Losartan Assessment & Plan (06/10/2020 3:42 PM DENTURE LABORATORY TECHNICIAN): Controlled on current medications. Continue plan. Assessment & Plan (12/11/2019 3:32 PM CDT): Check random home BP readings Assessment & Plan (09/08/2019 4:48 PM DENTURE LABORATORY TECHNICIAN): Controlled on current medications. Continue plan. Assessment & Plan (01/10/2019 8:41 AM CDT): Controlled on current medications. Assessment & Plan (10/16/2018 10:12 AM CDT): Controlled on current medications. Assessment & Plan (05/30/2018 4:53 PM DENTURE LABORATORY TECHNICIAN): Goal blood pressure is less than 140/85 [...] ARB Assessment & Plan (07/12/2017 3:06 PM DENTURE LABORATORY TECHNICIAN): Goal blood pressure is less than 140/85 [...] Type 2 diabetes mellitus wit hout complication ([facility]) 03/31/2020 03/24/2021 Type 1 diabetes [...] on pump education. Additionally needs to see head athletic trainer. Have advised pt to not do [...] contact information for 24 help line at [employer] for any questions. She has follow up [...] therapy. Assessment & Plan (05/30/2018 4:54 PM DENTURE LABORATORY TECHNICIAN): Goal of treatment , LDL cholesterol less [...] rosuvastatin. Assessment & Plan (07/12/2017 3:06 PM DENTURE LABORATORY TECHNICIAN): Goal of treatment , LDL cholesterol less [...] Encounters Date Type Department Care Team Description 02/25/2025 10:00 AM CDT Office Visit [facility] Diabetes and Endocrinology [address] [place] [phone] Kelsy Carpenter, JUSTICE Type 1 diabetes mellitus with hyperglycemia (HCC) (Primary Dx); Hypertension associated with type 1 diabetes mellitus (HCC); Hyperlipidemia due to type 1 diabetes mellitus (HCC); Chronic painful diabetic neuropathy (HCC); Insulin pump status 02/16/2025 1:15 PM CDT Ancillary Procedure [facility] Imaging at [address] [phone] Other fatigue 02/16/2025 12:15 PM CDT Lab [facility] Outpatient Lab at [address] [phone] Essential hypertension, malignant (Primary Dx) 02/16/2025 12:11 PM CDT - 02/16/2025 11:59 PM CDT Hospital Encounter [address] [address] Essential hypertension, malignant Discharge Disposition: Discharge to home or self care 01/21/2025 Results Follow-Up [facility] Diabetes and Endocrinology [address] [place] [phone] Kelsy Carpenter, JUSTICE Albumin Creatinine Ratio, Urine 01/19/2025 9:45 AM CDT Lab [facility] Outpatient Lab at [address] [phone] 01/19/2025 9:41 AM CDT - 01/19/2025 11:59 PM CDT Hospital Encounter [address] [address] Type 1 diabetes mellitus with hyperglycemia (HCC) Discharge Disposition: Discharge to home or self care 01/19/2025 9:00 AM CDT Office Visit [facility] Diabetes and Endocrinology [address] [place] [phone] Kelsy Carpenter, JUSTICE Type 1 diabetes mellitus with hyperglycemia (HCC) (Primary Dx); Hypertension associated with type 1 diabetes mellitus (HCC); Hyperlipidemia due to type 1 diabetes mellitus (HCC); Chronic painful diabetic neuropathy (HCC); Insulin pump status 12/05/2024 Telephone [facility] Diabetes and Endocrinology [address] [place] [phone] Renée Be LPN from Last 3 Months Immunizations Immunization Administration [...] on file Legal Sex Female 1:59 PM DENTURE LABORATORY TECHNICIAN Gender Identity Female 03/08/2020 4:32 PM CDT Sexual Orientation Straight 03/08/2020 4: 32 PM CDT Occupation Industry Job Start Date Job End Date RETIRED Not on file Not on file Not on file Obstetrics History Last Filed Vital Signs Vital Sign Reading Time Taken Comments Blood Pressure 120/64 02/25/2025 9:56 AM CDT Pulse 89 02/25/2025 9:56 AM CDT Temperature 36.3 C (97.3 F) 03/15/2022 10:57 AM CDT Respiratory Rate 18 02/25/2025 9:56 AM CDT Oxygen Saturation - - Inhaled Oxygen Concentration - - Weight 81.9 kg (180 lb 9.6 oz) 02/25/2025 9:56 A M CDT Height 165.1 cm (5' 5) 02/25/2025 9:56 AM CDT Body Mass Index 30.05 02/25/2025 9:56 AM CDT Plan of Treatment Health Maintenance Due Date Last Done Comments Breast Cancer Screening-Mammogram 1950 Colon Cancer Screening-Colonoscopy 1950 Hepatitis C Screening 1950 DTaP/Tdap/Td Vaccine (1 - Tdap) 1961 Hepatitis B Screening 1968 Zoster Vaccine (2 of 3) 06/30/2014 05/05/2014 Well Visit 65+ 2015 Covid-19 Vaccine (5 - 2023-2 5 season) 2024 09/26/2021, 03/18/2021, 10/11/2020, Additional history exists Osteoporosis Screening-Bone Density Scan 10/18/2024 10/18/2022 Influenza Vaccine (#1) 2025 , 03/28/2024, 04/24/2022, Additional history exists Depression Screening 06/30/2025 06/30/2024, 07/11/2022, 01/12/2022, Additional history exists Fall Risk Assessment 06/30/2025 06/30/2024, 04/02/20 Hemoglobin A1C 08/28/2025 02/25/2025, 12/23, 10/13/2024, Additional history exists Lipid Panel 10/03/2025 10/03/2024, 07/25, 08/04/2022, Additional history exists Dilated Eye Exam 11/05/2025 11/05/2024, 05/2024, 10/19/2022, Additional history exists Albumin Creatinine Ratio, Urine 01/19/2026 01/19/2025, 10/30/2023, 09/19/2022, Additional history exists Foot Exam 01/19/2026 01/19/2025, 03/23, 01/12/2022, Additional history exists TSH Level 02/16/2026 02/16/2025, 09/20, 08/30/2021, Additional history exists eGFR 02/16/2026 02/16/2025, 09/20, 08/22/2023, Additional history exists Pneumococcal vaccine 65+ Completed 06/15/2015, 0311/2014 Procedures Procedure Name Priority Date/Time Associated Diagnosis Comments POCT GLUCOSE Routine 02/25/2025 9:57 AM CDT Type 1 diabetes mellitus with hyperglycemia (HCC) POCT HEMOGLOBIN A1C Routine 02/25/2025 9 :57 AM CDT Type 1 diabetes mellitus with hyperglycemia (HCC) XR CHEST PA LATERAL 2 VIEWS Schedule Routine, Read Routine (OP Routine) 02/16/2025 1:06 PM CDT Other fatigue EGFR Routine 02/16/2025 12:11 PM CDT Essential hypertension, malignant COMPREHENSIVE METABOLIC PANEL Routine 02/16/2025 12:11 PM CDT Essential hypertension, malignant CBC WITHOUT DIFFERENTIAL Routine 02/16/2025 12:11 PM CDT Essential hypertension, malignant T3, FREE Routine 02/16/2025 12:11 PM CDT Essential hypertension, malignant T4, FREE Routine 02/16/2025 12:11 PM CDT Essential hypertension, malignant TSH Routine 02/16/2025 12:11 PM CDT Essential hypertension, malignant ALBUMIN CREATININE RATIO, URINE Routine 01/19/2025 9:41 AM CDT Type 1 diabetes mellitus with hyperglycemia (HCC) POCT GLUCOSE Routine 01/19/2025 9:03 AM CDT Type 1 diabetes mellitus with hyperglycemia (HCC) POCT HEMOGLOBIN A1C Routine 01/19/2025 9 :03 AM CDT Type 1 diabetes mellitus with hyperglycemia (HCC) HM DIABETES EYE EXAM Routine 11/05/2024 8:11 AM CDT LIPID PANEL Routine 10/03/2024 2:12 PM CDT 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) from Last 3 Months or Most Recently Relevant to Health Maintenance Results * POCT hemoglobin A1c (02/25/2025 9:57 AM CDT) Hemoglobin A1C, POC 4.8 4.0 - 5.6 % Capillary blood 02/25/2025 9 :57 AM CDT Kelsy Carpenter NP POINT OF CARE TEST ORDERA BLES Final Result * POCT glucose (02/25/2025 9:57 AM CDT) Glucose Blood, POC 197 Normal Fasting 70 - 100, Random <200 mg/dL Comment:PPG 1 Hr Blood 02/25/2025 9:57 AM CDT us Kelsy Carpenter NP POINT OF CARE TEST ORDERA BLES Final Result * XR Chest PA Lateral 2 Views (02/16/2025 1:06 PM CDT) Anatomical Region Laterality Modality Body, Chest N/A Digital Radiogra phy 02/16/2025 4:32 PM CDT Narrative 02/16/2025 4:33 PM CDT EXAM DESCRIPTION: XR CHEST PA LATERAL 2 VIEWS REASON FOR STUDY: pain Pt complains of fatigue and FOLEY x for some time. No chest surgery. No asthma,copd,cancer,heart disease. Former smoker quit 20 years ago, smoked for 20 years 1 ppd TECHNIQUE: There are 2 radiographic view(s) of the chest. COMPARISON: No prior. FINDINGS: LUNGS: Pulmonary vascularity appears normal. No infiltrate or effusion. HEART/MEDIASTINUM: Cardiac silhouette normal in size. Mediastinal and hilar contours appear normal. LINES/TUBES: None. BONES: Dextroconvex curvature thoracic spine and levoconvex scoliosis thoracolumbar spine. Mild multilevel spondylosis. IMPRESSION: 1. No acute findings or infiltrate. 2. Scoliosis. THIS IS AN ELECTRONICALLY VERIFIED FINAL REPORT 02/16/2025 4:33 PM - Electronically signed by Tommie NUNEZ T: Report ID: [id number] Reading Location: [id number] Procedure Note Tommie Pacheco MD - 02/16/2025 EXAM DESCRIPTION: XR CHEST PA LATERAL 2 VIEWS REASON FOR STUDY: pain Pt complains of fatigue and FOLEY x for some time. No chest surgery. No asthma,copd,cancer,heart disease. Former smoker quit 20 years ago, smokedfor 20 years 1 ppd TECHNIQUE: There are 2 radiographic view(s) of the chest. COMPARISON: No prior. FINDINGS: LUNGS: Pulmonary vascularity appears normal. No infiltrate or effusion. HEART/MEDIASTINUM: Cardiac silhouette normal in size. Mediastinal andhilar contours appear normal. LINES/TUBES: None. BONES: Dextroconvex curvature thoracic spine and levoconvex scoliosis thoracolumbar spine. Mild multilevel spondylosis. IMPRESSION: 1. No acute findings or infiltrate. 2. Scoliosis. THIS IS AN ELECTRONICALLY VERIFIED FINAL REPORT 02/16/2025 4:33 PM - Electronically signed by Tommie Pacheco M.D. [facility]J T: Report ID: [id number] Reading Location: [place] [address] Tommie Donaldson MD IMG XR PROCEDURES Final Resu lt * eGFR (02/16/2025 12:11 PM CDT) eGFR 62 >=60 mL/min/1. 73 m2 Comment: Interpretive Data [...] interpretive data was last reviewed 2021. Blood 02/16/2025 12:1 1 PM CDT 02/16/2025 8:20 PM CDT us Tommie Donaldson MD LAB BLOOD ORDERABLES Final R esult [facility] [address] Department [place] [address] * (ABNORMAL) CBC without differential (02/16/2025 12:11 PM CDT) WBC 5.64 3.80 - 9.90 K/cumm Hgb 10.6(L) 11.9 - 15.5 g/dL [facility] Hct 31.9(L) 35.6 - 45.5 % [facility] Plt 374 150 - 400 K/cumm [facility] MPV 9.4 9.1 - 12.3 fL [facility] RBC 3.51(L) 3.90 - 5.20 M/cumm [facility] MCV 90.9 81.3 - 96.4 fL [facility] MCH 30.2 27.1 - 33.3 pg [facility] MCHC 33.2 32.3 - 35.7 g/dL [facility] RDW CV 14.3 11.1 - 14.9 % [facility] RDW SD 47.5 35.7 - 48.1 fL [facility] NRBC abs 0.00 0.00 - 0.01 K/cumm [facility] Blood Venous blood specimen / Unknown 02/16/2025 12:11 PM CDT 02/16/2025 8:12 PM CDT Narrative [facility] - 02/16/2025 8:28 PM CDT Fax results to Dr Tommie Donaldson [phone] us Tommie Donaldson MD LAB BLOOD ORDERABLES Final R esult [facility] [id number] [facility] [place] [address] * (ABNORMAL) T3, free (02/16/2025 12:11 PM CDT) Free T3 1.7(L) 2.0 - 4.4 pg/mL Blood 02/16/2025 12:1 1 PM CDT 02/16/2025 8:12 PM CDT Narrative [facility] 02/16/2025 8:47 PM CDT Fax results to Dr Tommie Donaldson [phone] Tommie Donaldson MD LAB BLOOD ORDERABLES Final R esult [facility] [address] [facility] [place] [address] * TSH (02/16/2025 12:11 PM CDT) Thyroid Stimulating Hormone 3.40 0.30 - 4.20 mcIUnit/mL Blood Venous blood specimen / Unknown 02/16/2025 12:11 PM CDT 02/16/2025 8:12 PM CDT Narrative [facility] 02/16/2025 8:47 PM CDT Fax results to Dr Tommie Donaldson [phone] Tommie Donaldson MD LAB BLOOD ORDERABLES Final R esult [facility] [id number] [facility] [place] [address] * T4, free (02/16/2025 12:11 PM CDT) Free T4 1.27 0.90 - 1.70 ng/dL Blood Venous blood specimen / Unknown 02/16/2025 12:11 PM CDT 02/16/2025 8:12 PM CDT Narrative [facility] 02/16/2025 8:47 PM CDT Fax results to Dr Tommie Donaldson [phone] us Tommie Donaldson MD LAB BLOOD ORDERABLES Final R esult [facility] [address] Department [place] [address] * (ABNORMAL) Comprehensive metabolic panel (02/16/2025 12:11 PM CDT) Sodium 131(L) 135 - 145 mmol/L Potassium, pl 4.0 3.3 - 4.9 mmol/L [facility] Chloride 92(L) 97 - 110 mmol/L [facility] CO2 27 22 - 32 mmol/L [facility] Anion gap 12 2 - 15 mmol/L [facility] BUN 9 6 - 25 mg/dL [facility] Creatinine 0.96 0.60 - 1.10 mg/dL [facility] Glucose 178 70 - 199 mg/dL [facility] Comment: [...] classification and Diagnosis of Diabetes Diabetes Care 202; 46: S19-S40. Current interpretive data was last revised 2022. Calcium 9.3 8.5 - 10.3 mg/dL [facility] Bilirubin, total 0.4 0.1 - 1.2 mg/dL [facility] Protein, pl 6.7 6.5 - 8.5 g/dL [facility] Albumin 4.2 3.5 - 5.0 g/dL [facility] Alk phos 51 40 - 130 Units/L [facility] ALT 16 7 - 45 Units/L [facility] AST 29 10 - 45 Units/L [facility] Blood Venous blood specimen / Unknown 02/16/2025 12:11 PM CDT 02/16/2025 8:12 PM CDT Narrative [facility] - 02/16/2025 8:47 PM CDT Fax results to Dr Tommie Donaldson [phone] us Tommie Donaldson MD LAB BLOOD ORDERABLES Final R esult Performing Organization Address [facility] Co de Phone Number [facility] [phone] [facility] [place] [address] * Albumin Creatinine Ratio, Urine (01/19/2025 9:41 AM CDT) Albumin Ur 27.9 mg/L Comment: Interpretive Data No reference range established. Current interpretive data was last revised 2018. Creatinine Ur 106.9 mg/dL [facility] Comment: Interpretive Data No reference range established. Current interpretive data was last revised 2018. Albumin Creatinine Ratio, Ur 26 1 - 29 mg/g [facility] [facility] Urine 01/19/2025 9:41 AM CDT 01/19/2025 8:28 PM CDT us Kelsy Carpenter NP LAB URINE ORDERABLES Berta l Result Performing Organization Address [facility] de Phone Number HITESH CHU [id number] [facility] [place] [address] * POCT hemoglobin A1c (01/19/2025 9:03 AM CDT) Pathologist [facility] Hemoglobin A1C, POC 4.8 4.0 - 5.6 % Blood 01/19/2025 9:03 AM CDT us Kelsy Carpenter DISPLAY SCREEN FABRICATOR POINT OF CARE TEST ORDERA BLES Final Result * (ABNORMAL) POCT glucose (01/19/2025 9:03 AM CDT) Glucose Blood, POC 139 Normal Fasting 70 - 100, Random <200 mg/dL Blood 01/19/2025 9:03 AM CDT us Kelsy Carpenter NP POINT OF CARE TEST ORDERA BLES Final Result * HM DIABETES EYE EXAM (11/05/2024 8:11 AM CDT) us Historical Provider HEALTH MAINTENANCE Final Result * Lipid panel (10/03/2024 2:12 PM CDT) [...] on 2018. LDL, calculated 55 <=129 mg/dL CERTAMMI CHU Comment: Interpretive Data Ages < or [...] 3. Gurpreet Hunt et al. ELIZABETH Cardiol. 2020 November 20;5(5):540-548. [...] PM CDT 10/03/2024 9:01 PM CDT us Tommie Donaldson MD LAB BLOOD ORDERABLES Final R esult HITESH CHU [address] [place] [address] from Last 3 Months or Most Recently Relevant to Health Maintenance Insurance MEDICARE [facility] FEDERAL [facility] FEDERAL MEDICARE Care Teams Customer Consulting Manager Relationship Specialty Start Date End Date Tommie Donaldson MD PCP - General 10/20/16
--- OUTSIDE RECORDS SUMMARY | 2025-02-26 08:10 | XMS_ITS | Continuity of Care Document ---
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 Operator Name Role Phone Jayden Cortez MD Unavailable Unavailable Allergies, Adverse Reactions, Alerts Substance Reaction Status Criticality cefdinir Other Active No Information Medications Medication Instructions Dosage Effective Dates (start - stop) Status Comments peg 3350-electrolytes 236 gram-22.74 gram-6.74 gram-5.86 gram solution 04/05/22 AT 9AM - Active LANTUS 100 UNITS/ML VIAL 46 DIRECTE - Active HUMALOG 100 U/ML UNITS 0 DIRECTE - Active for dm BENICAR HCT 20-12.5MG TABS 1 QD-daily - Active VYTORIN 10MG-20MG TABS 1 QPM - Act mendy MOBIC 15MG TABS 1 QD-daily - Active VESICARE 10MG TABS 1 QD-daily - Active METFORMIN HCL 1000MG TABS 1 BID - Active CYMBALTA 60MG CAPS 1 QD-daily - Active JANUVIA 100MG TABS 1 QD-daily - Active EFFEXOR 75MG TABS 1 DAILY - Active AMARYL 4MG TABS 0 DIRECTE - Active 1 1/2 a day Procedures Procedure Date SCREENING COLONOSCOPY ; HIGH RISK Advance Directives Directive Yes / No Effective Date File Name No Information Encounters Encounter Description Practice Location Reason(s) For Visit Diagnoses Date Provider Providers Copied on Encounter [facility], [address], [place], [place], [address] , [place] tel: [phone] [facility] No Information 2 Diego Cerday. [address] [facility] [address], [place], [place], [address], [place]. tel:[phone] Referring Provider: John Wilkinson, [address], [place], [address] . tel:[phone] [facility], [address], [place], [place], [address] , [place] tel: [phone] [facility] No Information 2 Diego Jayden. [address] [facility] [address], [place], [place], [address], [place]. tel:[phone] [facility], [address], [place], [place], [address] , [place] tel: [phone] Conversion Department No Information 1 Conversion Doctor. [address] [facility], [place], [address], [place]. [facility], [address], [place], [place], [address] , [place] tel: [phone] [facility] DMII WO CMP NT [facility] Mar-0 6-200 9 [address], [place], [place], [address], [place]. tel:[phone] [facility], [address], [place], [place], [address] , [place] tel: [phone] [facility] LONG-TERM USE MEDS NECRECURR DEPR PSYCHOS-MODNONSP ECIF SKIN ERUPT NEC Dec-0 5-200 8 [address], [place], [place], [address], [place]. tel:[phone] [facility], [address], [place], [place], [address] , tel: [phone] [facility] ATTN REMOVAL OF SUTURES Apr-0 6-200 8 [address], [place], [place], [address], [place]. tel:[phone] [facility], [address], [place], [place], [address] , [place] tel: [phone] [facility] DMII WO CMP UNCNTRLDDERMATIT IS NOS Mar- 2-200 8 [address], [place], [place], [address], [place]. tel:[phone] [facility], [address], [place], [place], [address] , [place] tel:[phone] [facility] HYPERLIPIDEMIA NEC/NOSURINARY INCONTINENCE NOS Alvaro- 3-200 8 [address], [place], [place], [address], [place]. tel:[phone] [facility], [address], [place], [place], [address] , [place] tel: [phone] [facility] SCIATICASPASM OF MUSCLEIDIO PERIPH NEURPTHY NEC Sep-0 7-200 8 [address], [place], [place], [address], [place]. tel:[phone] [facility], [address], [place], [place], [address] , [place] tel:[phone] [facility] DMII OPHTH NT ST UNCNTRLJOINT PAIN-L/LEG Fe-0 8-200 8 [address], [place], [place], [address], [place]. tel:[phone] [facility], [address], [place], [place], [address] , [place] tel:[phone] [facility] 2ND DEG BURN PALM 1-200 7 [address], [place], [place], [address], [place]. tel:[phone] [facility], [address], [place], [place], [address] , [place] tel: [phone] [facility] SWELLING OF LIMB 8-200 7 [address], [place], [place], [address], [place]. tel:[phone] [facility], [address], [place], [place], [address] , [place] tel:[phone] [facility] VOMITING ALONEBACKACHE NOS 5-200 7 [address], [place], [place], [address], [place]. tel:[phone] [facility], [address], [place], [place], [address] , tel: [phone] [facility] VACCIN FOR INFLUENZA 0-200 6 [address], [place], [place], [address], [place]. tel:[phone] [facility], [address], [place], [place], [address] , [place] tel: [phone] [facility] DEPRESSIVE DISORDER NECOBESITY NOS 3-200 6 [address], [place], [place], [address], [place]. tel:[phone] [facility], [address], [place], [place], [address] , [place] tel: [phone] [facility] COUGHND VAC STRPTCS PNEUMNI B 0-200 6 [address], [place], [place], [address], [place]. tel:[phone] [facility], [address], [place], [place], [address] , [place] tel:[phone] [facility] DMII NEURO NT ST UNCNTRL 0-200 6 [address], [place], [place], [address], [place]. tel:[phone] [facility], [address], [place], [place], [address] , [place] tel: [phone] Conversion Department JOINT PAIN-SHLDER 0-200 6 [address], [place], [place], [address], [place]. tel:[phone] [facility], [address], [place], [place], [address] , [place] tel:[phone] [facility] NEUROPATHY IN DIABETESACUTE URI NOS 7-200 5 [address], [place], [place], [address], [place]. tel:[phone] [facility], [address], [place], [place], [address] , [place] tel:[phone] [facility] GENERAL OSTEOARTHROSIS 9-200 5 [address], [place], [place], [address], [place]. tel:[phone] [facility], [address], [place], [place], [address] , [place] tel:[phone] [facility] SEBACEOUS CYST 1-200 5 [address], [place], [place], [address], [place]. tel:554 [facility], [address], [place], [place], [address] , [place] tel:[phone] [facility] DYSURIA 9-200 4 [address], [place], [place], [address], [place]. tel:[phone] [facility], [address], [place], [place], [address] , [place] tel:[phone] [facility] INSECT BITE NEC-INFECTEDCERV ICALGIA Mar-0 9-200 4 [address], [place], [place], [address], [place]. tel:[phone] [facility], [address], [place], [place], [address] , [place] tel:[phone] [facility] Primary [facility] ABNORMAL WEIGHT GAIN Dec- 0-200 4 [address], [place], [place], [address], [place]. tel:[phone] [facility], [address], [place], [place], [address] , tel: [phone] [facility] MALAISE AND FATIGUE NEC 8-200 3 [address], [place], [place], [address], [place]. tel:[phone] [facility], [address], [place], [place], [address] , tel: [phone] [facility] VACCIN FOR INFLUENZA 1-200 3 [address], [place], [place], [address], [place]. [phone] Family History Family Member Type Diagnosis Age At Onset No Information Immunizations Vaccine Date Status Comments 64580 - Influenza administered Source: [place] Unspecified 51425 - Pneumococcal_PPV23 administered S ource: Source Unspecified 93004 - Influenza administered Source: [place] Unspecified Payers Payer name Insurance type Covered alliance party ID Authordenzela timarie(s) MEDICARE [id number] [facility] ACCESS [id number] Social History Type Description Quantity Date Captured Comments Sex Female Smoking Status No Information Chief Complaint And Reason For Visit No Information Reason For Referral Reason For Referral No Information History Of Present Illness Encounter Date Complaint History Of Prese nt Illness No Information Functional Status Date Functional Assessmen t No Information Instructions Date Instruction Additional Infor mation No Information Assessments Type Assessment Date No Information Patient Care Teams Name Effective Dates (start - stop) Status Members No Information
== END 2025-02-26 08:06 | disposition home or self-care (01) ==
PROVIDERS: PCP Internal Medicine; Visit Provider Internal Medicine
DX: R06.09 Other forms of dyspnea (principal); I10 Essential (primary) hypertension
CPT/HCPCS: 78452; 93017; A9502; J2785

== ENCOUNTER 2025-03-10 08:18 | Outpatient (CLI) | payer MEDICARE, BC, SELFPAY ==
--- NOTE | 2025-03-10 | ECHO_ITS ---
Patient Info Name: Valeria Murillo Age: 74 years : 1950 Gender: Female Ht: 65 in Wt: 175 lbs BSA: 1.93 m2 HR: 65 bpm BP: 142 / 71 mmHg Technical Quality: Good Exam Date: 03/10/2025 8:49 AM Patient Status: O Admit Date: 03/10/2025 Exam Type: CA echo doppler color flow Complete two-dimensional, color flow and Doppler transthoracic echocardiogram is performed. Office Coordinator Receptionist: Suzan Flannery Attending Provider: Tommie Donaldson Summary 1. Complete two-dimensional, color flow and Doppler transthoracic echocardiogram is performed. 2. Left ventricular systolic function is normal, estimated at 60-65. 3. There is mildly increased left ventricular wall thickness. 4. The left ventricular diastolic function is indeterminate. 5. There is trace mitral valve regurgitation. Left Ventricle Left ventricular chamber dimension is normal. Left ventricular systolic function is normal, estimated at 60-65. There is mildly increased left ventricular wall thickness. Left ventricular septal wall motion is normal. The left ventricular diastolic function is indeterminate. Right Ventricle Right ventricular chamber dimension is normal. Right ventricular systolic function is normal. Left Atria Left atrial chamber dimension is normal. Right Atria Right atrial chamber dimension is normal. Aortic Valve The aortic valve is trileaflet. There is no aortic valve sclerosis. There is no aortic valve stenosis. There is no aortic valve regurgitation. Pulmonic Valve The pulmonic valve is normal. There is no pulmonic valve stenosis. There is no pulmonic regurgitation. Mitral Valve The mitral valve has normal leaflets. There is no mitral valve stenosis. There is trace mitral valve regurgitation. Tricuspid Valve The tricuspid valve leaflets are normal. There is no significant tricuspid valve stenosis. There is no tricuspid valve regurgitation. Pericardium/Pleural The pericardium appears normal. There is no pericardial effusion. Inferior Vena Cava Normal inferior vena cava with >50% collapse upon inspiration consistent with normal right atrial pressure, 5 mmHg. Aorta The aortic root size at the sinus of Valsalva is normal. The prox ascending aorta size is normal. Left Ventricular Outflow Tract Name Value Normal LVOT 2D LVOT Diameter 2.0 cm LVOT Doppler LVOT Peak Velocity 105 cm/s LVOT Peak Gradient 4 mmHg LVOT Mean Gradient 2 mmHg LVOT VTI 30 cm LVOT Stroke Volume 93 ml LVOT CO 6.0 l/min LVOT CI 3.1 l/min/m2 Pulmonic Valve Name Value Normal RVOT Doppler RVOT Peak Velocity 61 cm/s RVOT Peak Gradient 1 mmHg PV Doppler PV Peak Velocity 93 cm/s PV Peak Gradient 3 mmHg Mitral Valve Name Value Normal MV Diastolic Function MV E Peak Velocity 104 cm/s MV A Peak Velocity 145 cm/s MV E/A 0.7 MV Decel Time (PW) 264 ms MV Annular TDI MV E/e' (Septal) 12.9 MV E/e' (Lateral) 11.6 MV E/e' (Average) 12.2 Tricuspid Valve Name Value Normal Estimated PAP/RSVP RA Pressure 5 mmHg <=5 Aortic Valve Name Value Normal AV Doppler AV Peak Velocity 137 cm/s AV Peak Gradient 8 mmHg AV Area (Cont Eq Jose) 2.4 cm2 AV DI (Jose) 0.77 AV Regurgitation 2D LVOT Area 3.1 cm2 Ventricles Name Value Normal LV Dimensions 2D/MM IVS Diastolic Thickness (2D) 0.9 cm 0.6-1.0 LVID Diastole (2D) 3.7 cm 3.8-5.2 LVIW Diastolic Thickness (2D) 1.1 cm 0.6-0.9 LVID Systole (2D) 2.4 cm 2.2-3.5 LVOT Diameter 2.0 cm LV Mass (2D Cubed) 116.14 g 67.00-162.00 LV Mass Index (2D Cubed) 60 g/m2 43-95 Relative Wall Thickness (2D) 0.59 <=0.42 LV Fractional Shortening/Ejection Fraction 2D/MM LV Fractional Shortening (2D) 37 % 27-45 LV EF (2D Teichholz) 68 % LV Diastolic Volume (4C MOD) 96 ml LV EF (4C MOD) 59 % LV Diastolic Volume (2C MOD) 108 ml LV EF (2C MOD) 65 % LV Diastolic Volume (BP MOD) 103 ml 46-106 LV Diastolic Volume Index (BP MOD) 53 ml/m2 29-61 LV Systolic Volume (BP MOD) 41 ml 14-42 LV Systolic Volume Index (BP MOD) 21 ml/m2 8-24 LV EF (BP MOD) 60 % 54-74 LV Diastolic Length (4C) 8.2 cm LV Systolic Length (4C) 7.0 cm LV Stroke Volume (4C MOD) 57 ml Atria Name Value Normal LA Dimensions LA Volume (4C A-L) 38 ml LA Volume (BP A-L) 48 ml RA Dimensions RA Systolic Major [place] Length (4C) 3.6 cm 2.2-2.8 RA Area (4C) 9.5 cm2 <=18.0 Report Signatures
--- OUTSIDE RECORDS SUMMARY | 2025-03-10 08:36 | XMS_ITS | Clinical Summary ---
Author Organization [facility] Address [address] [place] [id number] Care Team Providers Care Tank Truck Mechanic Name Role Phone Tommie Donaldson MD Primary Care Provider [phone] Allergies Active Allergy Reactions Criticality Noted Date [...] 09/19/2022 Assessment & Plan (09/19/2022 10:36 AM BOTTLE FEEDER): Discussed healthy diet and importance of regular [...] therapy prescribed by her treating neurosurgeon in [place]. Further evaluation and management regarding the footdrop [...] time. Assessment & Plan (06/30/2024 3:13 PM BOTTLE FEEDER): Chronic, stable Continue rosuvastatin 10 mg daily. Assessment & Plan (04/02/2024 3:35 PM CDT): Chronic, stable. Continue current medication including Hyzaar Assessment & Plan (10/30/2023 10:04 AM CDT): Chronic problem, well controlled on current Rosuvastatin 10mg. Last lipid panel: 08/22/23 LDL=67, TG=57. No changes at this time. Assessment & Plan (08/21/2023 1:32 PM BOTTLE FEEDER): Chronic, well controlled Update Lipid profile Continue Simvastatin Assessment & Plan (04/10/2023 10:12 AM CDT): Chronic problem, well controlled on current Rosuvastatin 10mg. Last lipid panel: 08/04/22 LDL=66, TG=49. No changes at this time. Assessment & Plan (01/16/2023 3:00 PM CDT): Chronic, well controlled Low fat Low cholesterol diet Exercise Continue statin therapy wit Rosuvastatin Assessment & Plan (09/19/2022 10:47 AM BOTTLE FEEDER): Chronic problem, well controlled on current Rosuvastatin 10mg. Last lipid panel: 08/04/22 LDL=66, TG=49. No changes at this time. Assessment & Plan (07/11/2022 4:02 PM BOTTLE FEEDER): Chronic, well controlled Low fat Low cholesterol [...] changes. Assessment & Plan (07/28/2021 3:56 PM BOTTLE FEEDER): Chronic problem. On statin therapy, no changes. [...] Crestor Assessment & Plan (09/21/2020 1:42 PM BOTTLE FEEDER): Goal of treatment , LDL cholesterol less [...] exercise Assessment & Plan (06/10/2020 3:43 PM BOTTLE FEEDER): Check lipid panel. Keep in consideration that [...] therapy Assessment & Plan (09/08/2019 9:40 AM BOTTLE FEEDER): At goal on current medications. Continue statin [...] changes. Assessment & Plan (09/19/2022 10:31 AM BOTTLE FEEDER): Omnipod insulin pump with Humalog BR 12a 0.3, 430a 0.7, 4p 0.80, 10p 0.7 CR 10 CF 40 Target 110 AIT 4 hrs Added basal rate: 9-1130a 0.9 Assessment & Plan (04/06/2022 11:50 AM CDT): No pump setting changes. Assessment & Plan (10/20/2021 1:09 PM CDT): No pump changes today. Assessment & Plan (07/28/2021 3:58 PM BOTTLE FEEDER): Change settings to: BR 12a 0.5, 4a [...] midnight Assessment & Plan (09/08/2019 8:16 PM BOTTLE FEEDER): No change to current settings until assessed [...] of bolusing appropriately and follow up with sap trainer. Assessment & Plan (10/16/2018 10:13 AM CDT): No change to settings. Assessment & Plan (07/12/2017 3:39 PM BOTTLE FEEDER): Have long acting , basal insulin ( [...] eye exam (11/05/24 NPDR wo DM [facility]) Strive for regular exercise (30min most days) [...] labs. Last DM eye exam 10/19/22 at [facility]. Scheduled for 11/01/23. Letter sent to [...] infection. Assessment & Plan (06/30/2024 3:13 PM BOTTLE FEEDER): Chronic, stable with some hypoglycemia I made [...] labs. Last DM eye exam 10/19/22 at [facility]. Scheduled for 11/01/23. Letter sent [...] infection. Assessment & Plan (08/21/2023 1:28 PM BOTTLE FEEDER): Hba1c was Lab Results Component Value Date [...] labs. Last DM eye exam 10/19/22 at [facility]. Letter sent to get most [...] settings Assessment & Plan (09/19/2022 10:53 AM BOTTLE FEEDER): Chronic problem, well controlled. Having postprandial increase [...] update MA/Cr today. Verified that she uses [employer]. Aware to check results/results letter in [employer]. Will contact by phone if needed. Omnipod insulin pump with Humalog BR 12a 0.3, 430a 0.7, Added basal rate: 9-1130a 0.9, 4p 0.80, 10p 0.7 CR 10 CF 40 Target 110 AIT 4 hrs Assessment & Plan (07/11/2022 4:01 PM BOTTLE FEEDER): Hba1c was Lab Results Component Value Date [...] is interested in. Sent in prescriptions to [facility] pharmacy, and she will let us [...] she should check with her DME supplier ([employer]). Assessment & Plan (07/28/2021 3:57 PM BOTTLE FEEDER): Chronic problem, not at goal with frequent [...] n Assessment & Plan (09/21/2020 1:42 PM BOTTLE FEEDER): Hba1c was Lab Results Component Value Date [...] settings Assessment & Plan (06/10/2020 3:42 PM BOTTLE FEEDER): A1c 6.3. BG pattern acceptable. No change [...] instructions in writing and they will contact [employer] if any issues being able to do this. Advised pump upload in 2 weeks to evaluate changes. Suspect that as she become more active with PT, adjustments will need to be made. Assessment & Plan (09/08/2019 8:15 PM BOTTLE FEEDER): A1c 6.9 however this is representing a [...] settings. Assessment & Plan (05/30/2018 4:53 PM BOTTLE FEEDER): Hba1c was Lab Results Component Value Date [...] discussed. Assessment & Plan (07/12/2017 3:41 PM BOTTLE FEEDER): Hba1c was 7.3 today, indicating sub-optimal DM [...] time. Assessment & Plan (08/21/2023 1:32 PM BOTTLE FEEDER): Update GFR Continue with [employer] Assessment & Plan (04/10/2023 10:11 AM CDT): Chronic problem controlled on current losartan/hctz 50-12.5mg No changes at this time. Assessment & Plan (01/16/2023 2:58 PM CDT): Chronic, well controlled Importance of low salt diet and exercise were discussed Continue current meds including Losartan Assessment & Plan (09/19/2022 10:52 AM BOTTLE FEEDER): Chronic problem, normal on recheck. Currently taking losartan/hctz 50-12.5mg No changes at this time. Assessment & Plan (07/11/2022 4:03 PM BOTTLE FEEDER): Chronic, well controlled Importance of low salt diet and exercise were discussed Continue current meds including losartan Update GFR Assessment & Plan (04/06/2022 11:18 AM CDT): Controlled on current medications, no changes. Assessment & Plan (10/20/2021 1:09 PM CDT): Controlled on current medications, no changes. Assessment & Plan (07/28/2021 1:24 PM BOTTLE FEEDER): Controlled on current medications, no changes. Assessment [...] losartan Assessment & Plan (09/21/2020 1:42 PM BOTTLE FEEDER): Goal blood pressure is less than 140/85 Low salt diet was discussed andd recommended The importance of daily aerobic exercise was also emphasized. Continue current meds, including AUSTIN-I or ARB, e.g. Losartan Assessment & Plan (06/10/2020 3:42 PM BOTTLE FEEDER): Controlled on current medications. Continue plan. Assessment & Plan (12/11/2019 3:32 PM CDT): Check random home BP readings Assessment & Plan (09/08/2019 4:48 PM BOTTLE FEEDER): Controlled on current medications. Continue plan. Assessment & Plan (01/10/2019 8:41 AM CDT): Controlled on current medications. Assessment & Plan (10/16/2018 10:12 AM CDT): Controlled on current medications. Assessment & Plan (05/30/2018 4:53 PM BOTTLE FEEDER): Goal blood pressure is less than 140/85 [...] ARB Assessment & Plan (07/12/2017 3:06 PM BOTTLE FEEDER): Goal blood pressure is less than 140/85 [...] Type 2 diabetes mellitus wit hout complication ([facility]) 03/31/2020 03/24/2021 Type 1 diabetes [...] on pump education. Additionally needs to see sap trainer. Have advised pt to not do [...] contact information for 24 help line at [facility]ana[facility] Ulien for any questions. She has follow up [...] therapy. Assessment & Plan (05/30/2018 4:54 PM BOTTLE FEEDER): Goal of treatment , LDL cholesterol less [...] rosuvastatin. Assessment & Plan (07/12/2017 3:06 PM BOTTLE FEEDER): Goal of treatment , LDL cholesterol less [...] Description 02/25/2025 10:00 AM CDT Office Visit [facility] Diabetes and Endocrinology [address] [place] [phone] Kelsy Carpenter, JUSTICE Type 1 diabetes mellitus with hyperglycemia (HCC) (Primary Dx); Hypertension associated with type 1 diabetes mellitus (HCC); Hyperlipidemia due to type 1 diabetes mellitus (HCC); Chronic painful diabetic neuropathy (HCC); Insulin pump status 02/16/2025 1:15 PM CDT Ancillary Procedure [facility] Imaging at [address] [id number] Other fatigue 02/16/2025 12:15 PM CDT Lab [facility] Outpatient Lab at [address] [phone] Essential hypertension, malignant (Primary Dx) 02/16/2025 12:11 PM CDT - 02/16/2025 11:59 PM CDT Hospital Encounter [address] [address] Essential hypertension, malignant Discharge Disposition: Discharge to home or self care 01/21/2025 Results Follow-Up [facility] Diabetes and Endocrinology [address] [place] [phone] Kelsy Carpenter NP Albumin Creatinine Ratio, Urine 01/19/2025 9:45 AM CDT Lab [facility] Group Outpatient Lab at [address] [phone] 01/19/2025 9:41 AM CDT - 01/19/2025 11:59 PM CDT Hospital Encounter [address] [address] Type 1 diabetes mellitus with hyperglycemia (HCC) Discharge Disposition: Discharge to home or self care 01/19/2025 9:00 AM CDT Office Visit [facility] Diabetes and Endocrinology [address] [place] [phone] Kelsy Carpenter, JUSTICE Type 1 diabetes mellitus with hyperglycemia (HCC) (Primary Dx); Hypertension associated with type 1 diabetes mellitus (HCC); Hyperlipidemia due to type 1 diabetes mellitus (HCC); Chronic painful diabetic neuropathy (HCC); Insulin pump status from Last 3 Months Immunizations Immunization Administration [...] on file Legal Sex Female 1:59 PM BOTTLE FEEDER Gender Identity Female 03/08/2020 4:32 PM CDT [...] exists Fall Risk Assessment 06/30/2025 06/30/2024, 04/02/20 24 Hemoglobin A1C 08/28/2025 02/25/2025, 12/23, 10/13/2024, Additional [...] Capillary blood 02/25/2025 9 :57 AM CDT Kelsykerrie Carpenter NP POINT OF CARE TEST ORDERA BLES Final Result * POCT glucose (02/25/2025 9:57 AM CDT) Glucose Blood, POC 197 Normal Fasting 70 - 100, Random <200 mg/dL Comment:PPG 1 Hr Blood 02/25/2025 9:57 AM CDT us Kelsykerrie Carpenter NP POINT OF CARE TEST ORDERA [...] Tommie Pacheco M.D. MJ T: Report ID: [id number] Reading Location: [id number] Procedure Note Tommie Pacheco MD - 02/16/2025 [...] Tommie Pacheco M.D. MJ T: Report ID: [id number] Reading Location: [place] [address] us Tommie Donaldson MD IMG XR PROCEDURES Final [...] of Race in Diagnosing Kidney Disease, JASN 202). The CKD-EPI equation should not be used for patients with unstable renal function and has not been validated in children and those over 70. Current interpretive data was last reviewed 2021. Blood 02/16/2025 12:1 1 PM CDT 02/16/2025 8:20 PM CDT Tommie Donaldson MD LAB BLOOD ORDERABLES Final R esult Performing Organization Address [facility] Co de Phone Number HITESH CHU [address] [place] [address] * (ABNORMAL) CBC without differential (02/16/2025 12:11 PM CDT) WBC 5.64 3.80 - 9.90 K/cumm Hgb 10.6(L) 11.9 - 15.5 g/dL [facility] Hct 31.9(L) 35.6 - 45.5 % [facility] Plt 374 150 - 400 K/cumm [facility] MPV 9.4 9.1 - 12.3 fL [facility] RBC 3.51(L) 3.90 - 5.20 M/cumm [facility] MCV 90.9 81.3 - 96.4 fL [facility] MCH 30.2 27.1 - 33.3 pg [facility] MCHC 33.2 32.3 - 35.7 g/dL [facility] RDW CV 14.3 11.1 - 14.9 % [facility] RDW SD 47.5 35.7 - 48.1 fL [facility] NRBC abs 0.00 0.00 - 0.01 K/cumm [facility] Blood Venous blood specimen / Unknown 02/16/2025 12:11 PM CDT 02/16/2025 8:12 PM CDT Narrative [facility] CH - 02/16/2025 8:28 PM CDT Fax results to Dr Tommie Donaldson [phone] Tommie Donaldson MD LAB BLOOD ORDERABLES Final R esult Performing Organization Address City/[facility]/ZIP Co de Phone Number HITESH CHU [address] [place] [address] * (ABNORMAL) T3, free (02/16/2025 12:11 PM CDT) Free T3 1.7(L) 2.0 - 4.4 pg/mL Blood 02/16/2025 12:1 1 PM CDT 02/16/2025 8:12 PM CDT Narrative [facility] 02/16/2025 8:47 PM CDT Fax results to Dr Tommie Donaldson [phone] Tommie Donaldson MD LAB BLOOD ORDERABLES Final R esult HITESH [address] [address] [facility] [place] [address] * TSH (02/16/2025 12:11 PM CDT) Thyroid Stimulating Hormone 3.40 0.30 - 4.20 mcIUnit/mL Blood Venous blood specimen / Unknown 02/16/2025 12:11 PM CDT 02/16/2025 8:12 PM CDT Narrative [facility] 02/16/2025 8:47 PM CDT Fax results to Dr Tommie Donaldson [phone] Tommie Donaldson MD LAB BLOOD ORDERABLES Final R esult Performing Organization Address City/[facility] Co de Phone Number MATTTAMMI [address] [address] [facility] [place] [address] * T4, free (02/16/2025 12:11 PM CDT) Free T4 1.27 0.90 - 1.70 ng/dL Blood Venous blood specimen / Unknown 02/16/2025 12:11 PM CDT 02/16/2025 8:12 PM CDT Narrative [facility] 02/16/2025 8:47 PM CDT Fax results to Dr Tommie Donaldson [phone] Tommie Donaldson MD LAB BLOOD ORDERABLES Final R esult Performing Organization Address City/[facility]/ZIP Co de Phone Number MATTTAMMI CHU [address] [place] [address] * (ABNORMAL) Comprehensive metabolic panel (02/16/2025 12:11 [...] CDT Fax results to Dr Tommie Donaldson [phone] us Tommie Donaldson MD LAB BLOOD ORDERABLES Final R esult HITESH CHU [address] Department [place] [address] * Albumin Creatinine Ratio, Urine (01/19/2025 9:41 AM CDT) Pathologist [facility] Albumin Ur 27.9 mg/L Comment: Interpretive Data No reference range established. Current interpretive data was last revised 2018. Creatinine Ur 106.9 mg/dL [facility] Comment: Interpretive Data No reference range established. Current interpretive data was last revised 2018. Albumin Creatinine Ratio, Ur 26 1 - 29 mg/g [facility] Urine 01/19/2025 9:41 AM CDT 01/19/2025 8:28 PM CDT us Kelsykerrie Carpenter NP LAB URINE ORDERABLES Berta l Result [facility] [address] [place] [address] * POCT hemoglobin A1c (01/19/2025 9:03 AM CDT) Pathologist [facility] Hemoglobin A1C, POC 4.8 4.0 - 5.6 % Blood 01/19/2025 9:03 AM CDT us Kelsykerrie Carpenter NP POINT OF CARE TEST ORDERA BLES Final Result * (ABNORMAL) POCT glucose (01/19/2025 9:03 AM CDT) [facility] Glucose Blood, POC 139 Normal Fasting 70 [...] BLOOD ORDERABLES Final R esult HITESH CHU [address] Department [place] [address] from Last 3 Months or Most Recently Relevant to Health Maintenance Insurance MEDICARE [facility] FEDERAL MEDICARE Care Teams Tank Truck Mechanic Relationship Specialty Start Date End Date Tommie Donaldson MD PCP - General 10/20/16
--- OUTSIDE RECORDS SUMMARY | 2025-03-10 08:36 | XMS_ITS | Encounter Summary ---
Author Organization [facility] Healthcare Address [address] [place] [address] Care Team Providers Care Strike Planning Applications Name Role Phone Tommie Donaldson MD Primary Care Provider Encounter Details Date Type Department Care Team (Late st Contact Info) Description 01/21/2025 Results Follow-Up [facility] Medical Group Diabetes and Endocrinology [address] [place] [phone] Kelsy Carpenter, [employer] PL[employer]NER [address] 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 Please call or send a [employer] message if any questions. Thank you, PALOMA Samuel-robin documented in this encounter Plan of Treatment Not on file documented as of this encounter Visit Diagnoses Not on filedocumented in this encounter Care Teams Strike Planning Applications Relationship Specialty Start Date End Date Tommie Donaldson MD PCP - General 10/20/16 documented as of this encounter
== END 2025-03-10 08:19 | disposition home or self-care (01) ==
LOC: ANHCARD 08:19
PROVIDERS: PCP Internal Medicine; Visit Provider Internal Medicine
DX: I10 Essential (primary) hypertension (principal)
CPT/HCPCS: 93306